=== PATIENT | male | born 1930 | race Caucasian/White ===

== ENCOUNTER 2017-02-06 21:34 | Emergency (ER) | payer MEDICARE | END 2017-02-06 22:42 | disposition home or self-care (01) | DX: S01.512A Laceration without foreign body of oral cavity, initial encounter (principal); X58.XXXA Exposure to other specified factors, initial encounter; K13.1 Cheek and lip biting; I10 Essential (primary) hypertension; I48.91 Unspecified atrial fibrillation; Z79.01 Long term (current) use of anticoagulants; Z79.82 Long term (current) use of aspirin; Z95.0 Presence of cardiac pacemaker ==

== ENCOUNTER 2017-12-15 08:00 | Outpatient (CLI) | payer MEDICARE ==
[2017-12-15 19:09] LABS: BASOPHILS % (AUTO) 0.9 %; EOSINOPHILS % (AUTO) 2.2 %; HGB - HEMOGLOBIN 13.5 g/dL (14.0-18.0); LYMPHOCYTES % (AUTO) 13.2 %; MEAN CORPUSCULAR HEMOGLOBIN 32.4 pg (27.0-31.0); MEAN CORPUSCULAR HGB CONC 32.6 g/dL (32.0-36.0); MEAN CORPUSCULAR VOLUME 99.5 fL (80.0-94.0); MEAN PLATELET VOLUME 9.4 fL (7.4-11.4); MONOCYTES % (AUTO) 8.5 %; NEUTROPHILS % (AUTO) 75.2 %; PLT - PLATELET COUNT 136 10^3/uL (130-450); RED BLOOD COUNT 4.18 10^6/uL (4.70-6.10); RED CELL DISTRIBUTION WIDTH 13.9 % (12.0-15.0); WHITE BLOOD COUNT 8.5 x10^3/uL (4.8-10.8)
[2017-12-15 19:23] LABS: ABNORMAL LYMPHS % (MANUAL) 0 %
[2017-12-15 20:09] LABS: BAND NEUTROPHILS % (MANUAL) 2 %; DIFFERENTIAL COMMENT MANUAL DIFFERENTIAL; LYMPHOCYTES # (MANUAL) 1.4 10^3/uL (1.5-3.5); LYMPHOCYTES % (MANUAL) 13 %; MONOCYTES # (MANUAL) 0.4 10^3/uL (0.0-1.0); NEUTROPHILS # (MANUAL) 6.7 10^3/uL (1.5-6.6); NEUTROPHILS % (MANUAL) 77 %; PLATELET ESTIMATE, MANUAL NORMAL (130-450,000) (NORMAL); PLATELET MORPHOLOGY NORMAL APPEARANCE (NORMAL); RBC MORPHOLOGY (MULTIPLE) NORMAL APPEARANCE (NORMAL)
== END 2017-12-15 08:01 | disposition home or self-care (01) ==
LOC: LAB.WCP 08:00
PROVIDERS: ATTEND Family Medicine
DX: M79.671 Pain in right foot (principal)
CPT/HCPCS: 36415; 84550; 85025

== ENCOUNTER 2018-07-20 11:15 | Outpatient (CLI) | payer MEDICARE | END 2018-07-20 11:16 | disposition home or self-care (01) | LOC: SC 11:15 | PROVIDERS: ATTEND Internal Medicine Pulmonary Disease | DX: G47.33 Obstructive sleep apnea (adult) (pediatric) (principal) | CPT/HCPCS: 99203; G0463; 99212 ==

== ENCOUNTER 2018-09-09 19:39 | Outpatient (CLI) | payer MEDICARE | END 2018-09-09 19:40 | disposition home or self-care (01) | LOC: SC 19:39 | PROVIDERS: ATTEND Internal Medicine Pulmonary Disease | DX: G47.33 Obstructive sleep apnea (adult) (pediatric) (principal) | CPT/HCPCS: 95810 ==

== ENCOUNTER 2018-10-05 14:06 | Outpatient (CLI) | payer MEDICARE | END 2018-10-05 14:07 | disposition home or self-care (01) | LOC: SC 14:06 | PROVIDERS: ATTEND Internal Medicine Pulmonary Disease | DX: G47.33 Obstructive sleep apnea (adult) (pediatric) (principal) | CPT/HCPCS: 99213; G0463; 99212 ==

== ENCOUNTER 2018-12-07 08:39 | Outpatient (CLI) | payer MEDICARE | END 2018-12-07 08:40 | disposition home or self-care (01) | LOC: SC 08:39 | PROVIDERS: ATTEND Nurse Practitioner Family | DX: G47.33 Obstructive sleep apnea (adult) (pediatric) (principal) | CPT/HCPCS: 99214; G0463; 99212 ==

== ENCOUNTER 2018-12-25 10:59 | Outpatient (CLI) | payer MEDICARE ==
--- NOTE | 2018-12-25 12:53 | XRAY Report ---
Reason: HEEL PX LEFT Procedure Date: 12/25/2018 Accession Number: [id number] / [id number] Procedure: WCP - Foot 3 View LT CPT Code: FULL RESULT: EXAM: LEFT FOOT RADIOGRAPHY EXAM DATE: 12/25/2018 11:31 AM. CLINICAL HISTORY: Heel pain, left. COMPARISON: None. TECHNIQUE: 3 views. FINDINGS: Bones: Normal. No fractures or bone lesions. Joints: Status post arthrodesis of the first metatarsophalangeal joint. Soft Tissues: Vascular calcifications. IMPRESSION: No abnormalities identified in the region of the heel. RADIA
== END 2018-12-25 11:00 | disposition home or self-care (01) ==
LOC: DI.WCP 10:59
PROVIDERS: ATTEND Family Medicine
DX: M79.672 Pain in left foot (principal)

== ENCOUNTER 2019-01-18 13:17 | Outpatient (CLI) | payer MEDICARE | END 2019-01-18 13:18 | disposition home or self-care (01) | LOC: SC 13:17 | PROVIDERS: ATTEND Nurse Practitioner Family | DX: G47.33 Obstructive sleep apnea (adult) (pediatric) (principal); R03.1 Nonspecific low blood-pressure reading | CPT/HCPCS: 99215; G0463; 99212 ==

== ENCOUNTER 2019-02-15 10:31 | Emergency (ER) | payer MEDICARE ==
[2019-02-15 13:00] LABS: BASOPHILS # (AUTO) 0.1 10^3/uL (0.0-0.1); BASOPHILS % (AUTO) 1.2 %; EOSINOPHILS # (AUTO) 0.1 10^3/uL (0.0-0.7); EOSINOPHILS % (AUTO) 1.1 %; HGB - HEMOGLOBIN 12.3 g/dL (14.0-18.0); LYMPHOCYTES # (AUTO) 0.9 10^3/uL (1.5-3.5); LYMPHOCYTES % (AUTO) 10.8 %; MEAN CORPUSCULAR HEMOGLOBIN 36.1 pg (27.0-31.0); MEAN CORPUSCULAR HGB CONC 35.1 g/dL (32.0-36.0); MEAN CORPUSCULAR VOLUME 102.6 fL (80.0-94.0); MEAN PLATELET VOLUME 8.3 fL (7.4-11.4); MONOCYTES # (AUTO) 0.6 10^3/uL (0.0-1.0); NEUTROPHILS # (AUTO) 6.5 10^3/uL (1.5-6.6); NEUTROPHILS % (AUTO) 79.9 %; PLT - PLATELET COUNT 157 10^3/uL (130-450); RED BLOOD COUNT 3.42 10^6/uL (4.70-6.10); RED CELL DISTRIBUTION WIDTH 13.4 % (12.0-15.0); WHITE BLOOD COUNT 8.2 x10^3/uL (4.8-10.8)
[2019-02-15 13:13] LABS: ALBUMIN 4.2 g/dL (3.2-5.5); ALBUMIN/GLOBULIN RATIO 1.7 (1.0-2.2); BILIRUBIN,TOTAL 1.2 mg/dL (0.2-1.0); CREATININE 2.7 mg/dL (0.6-1.2); TOTAL PROTEIN 6.7 g/dL (6.7-8.2)
--- NOTE | 2019-02-15 14:06 | ED Physician Documentation ---
PD HPI FOCAL NEURO - Stated complaint Stated Complaint: SEIZURE/ALOC - Chief complaint Chief Complaint: Neuro - History obtained from History obtained from: Patient, Family () - History of Present Illness Timing - onset: Today (He was walking into the bedroom this morning and then suddenly started shaking. It was both sides. He maintained postural tone and he leaned up against the door frame and did not fall down. There is no associated chest pain or trouble breathing. The said he had something like this may be a month ago that seemed milder at that time. Now he feels fine, there is no increase in shortness of breath or cough or urinary complaints. He denies headache.) Review of Systems Ten Systems: 10 systems reviewed and negative Constitutional: denies: Fever, Chills, Fatigue Cardiac: denies: Chest pain / pressure, Palpitations Respiratory: denies: Dyspnea, Cough GI: denies: Abdominal Pain, Nausea, Vomiting PD PAST MEDICAL HISTORY - Past Medical History Cardiovascular: Hypertension, High cholesterol, Atrial fibrillation HEENT: Glaucoma - Past Surgical History Past Surgical History: Yes Cardiovascular: Pacemaker - Present Medications Home Medications: Ambulatory Orders Medication Instructions Recorded Confirmed Atorvastatin Calcium [Lipitor] 80 mg PO QPM 02/06/17 02/06/17 Carvedilol [Coreg] 25 mg PO BID 02/06/17 02/06/17 Cetirizine [ZyrTEC] 10 mg PO DAILY PRN 02/06/17 02/06/17 Latanoprost 0.005% Ophth Drops 1 drops OPTH QPM 02/06/17 02/06/17 [Xalatan Ophth Drops] Losartan [Cozaar] 25 mg PO BID 02/06/17 02/06/17 Sildenafil Citrate [Viagra] 50 mg PO DAILY 02/06/17 02/06/17 Timolol Maleate [Timoptic] 5 ml OP BID 02/06/17 02/06/17 Metronidazole [Metrogel] 02/15/19 RX: Acyclovir 1 tab ORAL BID 02/15/19 02/15/19 RX: Amiodarone [Pacerone] 1 tab ORAL DAILY 02/15/19 02/15/19 RX: Cyclosporine [Restasis] 1 BID 02/15/19 RX: Levothyroxine [Synthroid] 1 tab DAILY 02/15/19 02/15/19 RX: Torsemide 02/15/19 RX: Warfarin Sodium 2 mg DAILY 02/15/19 02/15/19 - Allergies Allergies/Adverse Reactions: Allergies Allergy/AdvReac Type Severity Reaction Status Date / Time simvastatin [From Zocor] Allergy Cramps Verified 02/15/19 14:26 [id number] Reductase AdvReac Unknown Verified 02/15/19 10:37 Inhibitor - Social History Does the pt smoke?: No Smoking Status: Never smoker Does the pt drink ETOH?: Yes Does the pt have substance abuse?: No - Immunizations Immunizations are current?: Yes - POLST Patient has POLST: No PD ED PE NORMAL - Vitals Vital signs reviewed: Yes - General General: Alert and oriented X 3, No acute distress - HEENT HEENT: PERRL, EOMI - Neck Neck: Supple, no meningeal sign, No bony TTP - Cardiac Cardiac: RRR, No murmur - Respiratory Respiratory: No respiratory distress, Clear bilaterally - Abdomen Abdomen: Normal bowel sounds, Other (Mild focal tenderness in the right upper quadrant) - Back Back: No CVA TTP, No spinal TTP - Derm Derm: Normal color, Warm and dry - Neuro Neuro: Alert and oriented X 3, Normal speech - Psych Psych: Normal mood, Normal affect Results - Vitals Vitals: Vital Signs - 24 hr 02/15/19 02/15/19 02/15/19 10:33 13:10 16:01 Temperature 36.5 C 36.0 C L 35.9 C L Heart Rate 62 64 60 Respiratory 18 18 18 Rate Blood Pressure 141/77 H 160/73 H 138/75 H O2 Saturation 100 100 100 Oxygen O2 Source Room air - EKG (time done) 1057 Rate: Rate (enter#) (60) Rhythm: Paced Computer interpretation: Agree with computer - Labs Labs: Laboratory Tests 02/15/19 02/15/19 02/15/19 12:49 12:49 12:49 WBC 8.2 RBC 3.42 L Hgb 12.3 L Hct 35.1 L MCV 102.6 H MCH 36.1 H MCHC 35.1 RDW 13.4 Plt Count 157 MPV 8.3 Neut # (Auto) 6.5 Lymph # (Auto) 0.9 L [place] # (Auto) 0.6 Eos # (Auto) 0.1 Baso # (Auto) 0.1 Absolute Nucleated RBC 0.00 Nucleated RBC % 0.0 Sodium 139 Potassium 3.7 Chloride 104 Carbon Dioxide 24 Anion Gap 11.0 BUN 64 H Creatinine 2.7 H Estimated GFR (MDRD) 23 L Glucose 99 Calcium 9.0 Total Bilirubin 1.2 H AST 58 H ALT 71 H Alkaline Phosphatase 71 Troponin I < 0.04 Total Protein 6.7 Albumin 4.2 Globulin 2.5 Albumin/Globulin Ratio 1.7 Lipase 40 Urine Color Urine Clarity Urine pH Ur Specific [place] Urine Protein Urine Glucose (UA) Urine Ketones Urine Occult Blood Urine Nitrite Urine Bilirubin Urine Urobilinogen Ur Leukocyte Esterase Ur Microscopic Review Urine Culture Comments 02/15/19 14:40 WBC RBC Hgb Hct MCV MCH MCHC RDW Plt Count MPV Neut # (Auto) Lymph # (Auto) [place] # (Auto) Eos # (Auto) Baso # (Auto) Absolute Nucleated RBC Nucleated RBC % Sodium Potassium Chloride Carbon Dioxide Anion Gap BUN Creatinine Estimated GFR (MDRD) Glucose Calcium Total Bilirubin AST ALT Alkaline Phosphatase Troponin I Total Protein Albumin Globulin Albumin/Globulin Ratio Lipase Urine Color YELLOW Urine Clarity CLEAR Urine pH 6.0 Ur Specific [place] 1.010 Urine Protein NEGATIVE Urine Glucose (UA) NEGATIVE Urine Ketones NEGATIVE Urine Occult Blood NEGATIVE Urine Nitrite NEGATIVE Urine Bilirubin NEGATIVE Urine Urobilinogen 0.2 (NORMAL) Ur Leukocyte Esterase NEGATIVE Ur Microscopic Review NOT INDICATED Urine Culture Comments NOT INDICATED - Rads (name of study) 2v chest Radiology: EMP read contemporaneously (mild chf), See rad report CT Head Radiology: EMP read contemporaneously (White matter disease, no acute disease.) RUQ sono Radiology: EMP read contemporaneously (neg) PD MEDICAL DECISION MAKING - ED course ED course: This is an 88-year-old gentleman with an episode of shaking today. It was bilateral without the loss of consciousness or postural tone making seizure unlikely. Triage orders were done by the nurse and shows chronic renal insufficiency, but also shows some elevated bilirubin and liver enzymes. He has mild tenderness in the right upper quadrant. I wonder if smoldering cholecystitis might have given him Rigor as the cause of this episode. However imaging suggested against this and his chronic CHF might suggest a congested hepatic pattern. Otherwise it did not seem like anything acute was going on but watchful waiting and close monitoring was advised. Departure - Departure Disposition: 01 Home, Self Care Clinical Impression: Episode of shaking, Elevated liver enzymes, Renal failure Condition: Good Record reviewed to determine appropriate education?: Yes Comments: As discussed, the cause of your symptoms today is not immediate clear. There is no obvious evidence of an infection, your lab work shows only chronic issues such as the renal failure mild anemia and all of the imaging studies were without acute issues as well. Please return for new or worsening symptoms, follow-up with your doctor regardless, here she may want to recheck your liver enzymes which were mildly elevated. Discharge Date/Time: 02/15/19 16:32
--- NOTE | 2019-02-15 14:43 | CT Report ---
Reason: poss seizure Procedure Date: 02/15/2019 Accession Number: [id number] / [id number] Procedure: CT - HEAD WO CPT Code: FULL RESULT: EXAM: CT HEAD EXAM DATE: 02/15/2019 02:29 PM. CLINICAL HISTORY: Seizure activity. COMPARISON: HEAD W/WO 05/07/2016 4:16 PM. TECHNIQUE: Multiaxial CT images were obtained from the foramen magnum to the vertex. Reformats: Sagittal and coronal. IV contrast: None. In accordance with CT protocol optimization, one or more of the following dose reduction techniques were utilized for this exam: automated exposure control, adjustment of mA and/or KV based on patient size, or use of iterative reconstructive technique. FINDINGS: Parenchyma: Negative for acute hemorrhage. There is mild periventricular white matter hypodensity. No midline shift or mass-effect. Extraaxial Spaces: No subdural or epidural collections identified. Ventricles: Symmetric and normal in position. Sinuses and Orbits: Imaged paranasal sinuses, orbits, and mastoids show no significant abnormality. Bones: No evidence of fracture or calvarial defect. Other: None. IMPRESSION: 1. Negative for an acute or focal intracranial abnormality. 2. Mild nonfocal white matter hypodensity. Nonspecific but most commonly attributed to sequela of chronic microangiopathy. RADIA
[2019-02-15 14:50] LABS: BILIRUBIN,URINE NEGATIVE (NEGATIVE); GLUCOSE, URINE (UA) NEGATIVE (NEGATIVE); KETONES,URINE (UA) NEGATIVE (NEGATIVE); LEUKOCYTE ESTERASE, URINE NEGATIVE (NEGATIVE); NITRITE,URINE NEGATIVE (NEGATIVE); OCCULT BLOOD,URINE NEGATIVE (NEGATIVE); PROTEIN,URINE NEGATIVE (NEGATIVE); UROBILINOGEN,URINE 0.2 (NORMAL) E.U./dL (NORMAL)
[2019-02-15 14:52] LABS: CLARITY,URINE CLEAR (CLEAR)
--- NOTE | 2019-02-15 15:09 | XRAY Report ---
Reason: rigors Procedure Date: 02/15/2019 Accession Number: [id number] / [id number] Procedure: XR - Chest 2 View X-Ray CPT Code: 13502 FULL RESULT: EXAM: CHEST RADIOGRAPHY EXAM DATE: 02/15/2019 02:42 PM. CLINICAL HISTORY: Rigors. COMPARISON: None. TECHNIQUE: 2 views. FINDINGS: Lungs/Pleura: No focal opacities evident. No pleural effusion. No pneumothorax. Normal volumes. Borderline increased pulmonary vasculature. Mediastinum: Enlarged cardiac silhouette. Unremarkable mediastinal contour. Other: Left sided cardiac implant is in place with leads projecting over right atrium and right ventricular apex. IMPRESSION: Borderline CHF/fluid overload. No acute findings otherwise. RADIA
--- NOTE | 2019-02-15 15:18 | Ultrasound Report ---
Reason: RUQ TTP, rigors Procedure Date: 02/15/2019 Accession Number: [id number] / [id number] Procedure: US - Abdomen Limited CPT Code: FULL RESULT: EXAM: ABDOMEN ULTRASOUND LIMITED, RIGHT UPPER QUADRANT. EXAM DATE: 02/15/2019 03:11 PM. CLINICAL HISTORY: Right upper quadrant tender to palpation, rigors. COMPARISON: None. TECHNIQUE: Real-time scanning was performed with static images obtained. FINDINGS: Liver: Parenchyma appears echogenic and coarse which limits evaluation for underlying masses, no masses seen. Right lobe of the liver measures at least 12.9 cm. Main portal vein flow: Hepatopetal. Gallbladder: Normal. No stones, wall thickening, or sonographic Carolina's sign. Biliary System: CBD measures 3 mm. No intrahepatic or extrahepatic ductal dilatation. Other: Right kidney measures up to 9.2 cm and demonstrates no hydronephrosis. IMPRESSION: No evidence of cholecystitis. RADIA
[2019-02-15 16:02] VITALS: BP 138/75
== END 2019-02-15 16:32 | disposition home or self-care (01) ==
LOC: ED 10:31
DX: R25.1 Tremor, unspecified (principal); I13.0 Hypertensive heart and chronic kidney disease with heart failure and stage 1 through stage 4 chronic kidney disease, or unspecified chronic kidney disease; N18.9 Chronic kidney disease, unspecified; I50.9 Heart failure, unspecified; R10.811 Right upper quadrant abdominal tenderness; R74.8 Abnormal levels of other serum enzymes; R79.89 Other specified abnormal findings of blood chemistry; D64.9 Anemia, unspecified; I48.91 Unspecified atrial fibrillation; Z79.01 Long term (current) use of anticoagulants; Z95.0 Presence of cardiac pacemaker
CPT/HCPCS: 36415; 70450; 71046; 76705; 80053; 81001; 81003; 83690; 84484; 85025; 87086; 93005; 99283; 99284

== ENCOUNTER 2019-03-22 14:48 | Outpatient (CLI) | payer MEDICARE | END 2019-03-22 14:49 | disposition home or self-care (01) | LOC: SC 14:48 | PROVIDERS: ATTEND Nurse Practitioner Family | DX: G47.33 Obstructive sleep apnea (adult) (pediatric) (principal) | CPT/HCPCS: 99214; G0463; 99212 ==

== ENCOUNTER 2019-04-27 13:13 | Outpatient (CLI) | payer MEDICARE | END 2019-04-27 13:14 | disposition home or self-care (01) | LOC: SC 13:13 | PROVIDERS: ATTEND Nurse Practitioner Family | DX: G47.33 Obstructive sleep apnea (adult) (pediatric) (principal); I95.9 Hypotension, unspecified | CPT/HCPCS: 99215; G0463; 99212 ==

== ENCOUNTER 2019-05-12 09:52 | Outpatient (CLI) | payer MEDICARE ==
--- NOTE | 2019-05-12 15:57 | CONSULTATION NOTE ---
Palliative Care Consultation - Referral Referring Provider: Dr. Niya Harvey Time of Visit: [phone] Referral setting: [facility] [place] - Information Sources Records reviewed: Previous records reviewed History/Review of Systems obtained from: Patient, Family Exam limitations: No limitations - History of Present Illness Brief History of Present Illness: This is a 88-year-old gentleman presents with multiple comorbidities, who has CKD stage IV, with multifactor etiology. He has known chronic combined systolic and diastolic congestive heart failure, tachybradycardia syndrome, atrial fib on Coumadin therapy, and most recently struggled with hypotension and concern for near syncope/seizure visit to the emergency department on 02/15/2019. Patient is supported by multiple specialists, his care is complex in the context of mild cognitive issues, macular degeneration, and functional decline over the last several months. Patient's most problematic symptom, is actually intermittent dizziness and shortness of breath with increased activity. This is limited his ability to participate in activities that previously were important to him, as he was fairly active at baseline. He is well supported by his , who oversees his medical care, they have a supportive confucianism community, and are here today to establish with palliative care. Patient's last recorded labs are in January with ED visit, with BUN of 64, creatinine 2.7, and GFR of 23. They had met with palliative care up in [place], in the context of goals of care conversation patient has chosen not to pursue dialysis though at this point does not meet criteria. He has seen nephrology both at [facility], and you have dub. He has had some recent medication adjustments with decreased in his hypotension. Medical/Surgical History - Past Medical History Cardiovascular: reports: Congestive heart failure (combined systolic/diastolic), Hypertension, High cholesterol, Atrial fibrillation, Other (tachybrady syndrome) Respiratory: reports: Shortness of breath, Sleep apnea, CPAP use Neuro: Other (memory impairment) Endocrine/Autoimmune: reports: None : reports: Renal insuffiency HEENT: reports: Chronic vision loss, Glaucoma, Macular degeneration Psych: reports: None Musculoskeletal: reports: Osteoarthritis, Fatigue Derm: reports: Rosacea MRSA Hx?: No - Past Surgical History General: reports: Appendectomy Ortho: reports: Spine surgery, Other Cardiovascular: reports: Pacemaker, Other (ablation) HEENT: reports: Other (corneal transplant) Derm: reports: Skin cancer surgery - Substance History Use: Uses substance without health or social issues: Tobacco (previous hx), Alcohol (daily) Social History - Living Situation Living arrangement: At home Living Situation: With spouse/s.o. Support System: Patient has been for 40 years to his Mark. They have lived 20 years on [facility]. 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 He was an avid hiker, and finds limitations particularly around traveling disappointing, but they still travel short distances. They have a blended family, of 5 sons total. 2 lives in [place]. They feel well supported by their confucianism community, and go to [facility]. Family History - Family History Family History: Mother: , CVA/TIA, Father: , CVA/TIA, Brother: , CAD Medications/Allergies - Medications Home Medications: Ambulatory Orders Medication Instructions Recorded Confirmed Atorvastatin Calcium [Lipitor] 80 mg PO QPM 02/06/17 05/18/19 Carvedilol [Coreg] 12.5 mg PO BID 02/06/17 05/18/19 Cetirizine [ZyrTEC] 10 mg PO DAILY PRN 02/06/17 05/18/19 Losartan [Cozaar] 25 mg PO ACHS 02/06/17 05/18/19 Acyclovir 400 mg ORAL BID 02/15/19 05/18/19 Amiodarone [Pacerone] 200 mg ORAL DAILY 02/15/19 05/18/19 Cyclosporine [Restasis] 1 drops EACHEYE BID 02/15/19 05/18/19 Levothyroxine [Synthroid] 75 mcg PO DAILY 02/15/19 05/18/19 Metronidazole [Metrogel] 1 applic TOP DAILY PRN 02/15/19 05/18/19 Torsemide 20 mg PO .QOD 02/15/19 05/18/19 Warfarin Sodium 2 mg DAILY MDD managed PCP 02/15/19 05/18/19 Dorzolamide 2% Ophth Drops 1 drops EACHEYE BID 05/18/19 05/18/19 [Trusopt 2% Ophth Drops] Multivitamin [Multivitamins] 1 tab PO DAILY 05/18/19 05/18/19 Torsemide 10 mg PO .QOD 05/18/19 05/18/19 - Allergies Allergies/Adverse Reactions: Allergies Allergy/AdvReac Type Severity Reaction Status Date / Time simvastatin [From Zocor] Allergy Cramps Verified 02/15/19 14:26 Huhwhur-Jop-Imi Reductase AdvReac Unknown Verified 02/15/19 10:37 Inhibitor Review of Systems - Constitutional Constitutional: reports: Fatigue, Weight stable - Eyes Eyes: reports: Blurred vision, Vision loss - Ears, Nose & Throat Ears, Nose & Throat: reports: Hearing loss, Nasal congestion, Dry mouth - Cardiovascular Cardiovascular: reports: Irregular heart rate, Exertional dyspnea, Decr. exercise tolerance. denies: Edema - Respiratory Respiratory: reports: SOB with exertion. denies: Cough, SOB at rest - Gastrointestinal Gastrointestinal: reports: Constipation (intermittent), Good appetite. denies: Nausea, Reflux/heartburn - Genitourinary Genitourinary: reports: Frequency - Musculoskeletal Musculoskeletal: reports: Muscle aches, Stiffness, Limited range of motion - Neurological Neurological: reports: General weakness, Memory problems, Abnormal gait - Psychiatric Psychiatric: denies: Depression, Anxiety - Hematologic/Lymphatic Hematologic/Lymphatic: reports: Anemia, Bruising, Bleeding tendencies. denies: Recurrent infections - All Other Systems All Other Systems: reports: Reviewed and negative Physical Exam - Vital Signs Pulse Rate: 60 Respiratory Rate: 18 O2 Saturation: 100 (ra @ rest) Blood Pressure: 126/74 - Physical Exam General Appearance: positive: No acute distress, Alert Eyes Bilateral: positive: Conjunctivae nml ENT: positive: No signs of dehydration Neck: positive: No JVD, Trachea midline Cardiovascular: positive: Regular rate & rhythm Respiratory: positive: Diminished in bases. negative: Wheezes, Rales, Rhonchi Abdomen: positive: Non-tender, Soft, Nml bowel sounds Skin: positive: Pallor, Dryness, Bruising Extremities: positive: No pedal edema Neurologic/Psychiatric: positive: Oriented x3, Mood/affect nml, Weakness, Flat affect, Other (defers often to for answers) Palliative Care - POLST Patient has POLST: Yes POLST Status: DNR, Selective Treatment (completed with Dr. Reid 12/01/2013 and still valid) Pain: No pain Tiredness/Fatigue: Mild (1-3) Drowsiness/Sedation: None Nausea: None Depression: None Anxiety: None Dyspnea: Moderate (4-6) Anorexia: None Sleep: Sleeps well (CPAP) Constipation: No Feelings of wellbeing/Perceived Quality of Life: Good, Acceptable, Worsening Performance Status: Patient's functional status has declined fairly steadily over the last 6 weeks, mostly impacted by his dyspnea and intermittent dizziness. With medication adjustments dizziness improved, but still needing to pace himself. Patient needing frequent rest periods only able ambulate 10 to 20 feet without pacing self. Patient has not had any falls, but gait is unsteady. - Palliative Care Discussion: Patient presents is somewhat pragmatic, but also appears resigned to his current situation. Patient denies worries, or concerns related to the seriousness of his illness. Review of goals, include focus on quality of life, hoping to simplify medical regimen, receives most of specialty care in [place]. Did discuss in the context of the future, and moving care closer to home. Recognizes as chronic conditions, less acute interventions needed and may be able to scale back in the future. Patient has not had any recent acute hospitalizations. would like palliative care, available to help with coordination and anticipatory guidance as patient continues to decline. Results - Lab Results Lab results reviewed: Yes Lab and Imaging Results: Will coordinate with PCP for updated labs Impression and Recommendations - Palliative Care Impression: This is a viola 88-year-old gentleman with multiple comorbidities, with most problematic CKD stage IV, Chronic combined systolic and diastolic congestive heart failure, tachybradycardia syndrome, and persistent atrial fib. Patient symptom burden is moderate, most problematic is intermittent and ongoing dizziness and limiting dyspnea. Patient has had functional decline most acutely over the last 6 weeks, and mild cognitive changes over the last year. Palliative care to provide support and anticipatory guidance. Recommendations/Counseling Done: 1. CKD stage IV. Patient at this point time is not expected to pursue dialysis, the most recent labs were in January. Will coordinate with PCP, with upcoming appointment and draw labs to get baseline where patient currently is. Suspect current fatigue, and activity intolerance related to underlying disease process. Counseling provided regarding the chronic and progressive nature, will continue to monitor. 2. Dyspnea. This is most likely multifactorial in origin, including anemia, underlying heart failure, tachybradycardia syndrome. Patient is finding this most impactful and limiting on his current quality of life. Patient does not present with hypoxia, at this point in time counseling provided regarding pacing activities, balancing deconditioning risk, encouraged progressive ambulation to tolerance. Offered physical therapy, at this point declined. 3. Advanced care planning. Patient does have POLST in place, DPKobi moreno is his Hugo [phone]. Patient has experienced decline in quality of life, has multiple comorbidities impacting prognosis. Patient high risk for sequela from a fall, but has had no acute hospitalizations or recurrent infections. Counseling provided in review of goals of care, role of palliative care, and psychosocial support given in the context of his ongoing challenges and decline.Today's visit was to establish rapport, patient's baseline and goals, plan to revisit in 2 months. Patient on Tee Index, looks at community dwelling adults 65 years and older at outcome of all cause 1 year mortality. Patient scores an 8 which puts him at 36.5%. Risk calculators cannot predict the future for any one individual, but given estimate of how many people with similar risk factors will live and , but cannot identify who will live and who will . Time Spent: 75 minutes with greater than 50% of this done in counseling regarding continuum of care, goals of care, establishing rapport, plan to follow-up on labs and coordinate with PCP, update given to Dr. Harvey. We will plan to meet in 2 months.
== END 2019-05-12 09:53 | disposition home or self-care (01) ==
LOC: PC 09:52
PROVIDERS: ATTEND Nurse Practitioner Adult Health
DX: Z51.5 Encounter for palliative care (principal); I13.0 Hypertensive heart and chronic kidney disease with heart failure and stage 1 through stage 4 chronic kidney disease, or unspecified chronic kidney disease; N18.4 Chronic kidney disease, stage 4 (severe); I50.42 Chronic combined systolic (congestive) and diastolic (congestive) heart failure; R06.00 Dyspnea, unspecified; D64.9 Anemia, unspecified; I49.5 Sick sinus syndrome; I48.1 Persistent atrial fibrillation; R42 Dizziness and giddiness; R26.81 Unsteadiness on feet; R53.83 Other fatigue; G31.84 Mild cognitive impairment of uncertain or unknown etiology; G47.30 Sleep apnea, unspecified; E78.00 Pure hypercholesterolemia, unspecified; H35.30 Unspecified macular degeneration; H40.9 Unspecified glaucoma; H54.7 Unspecified visual loss; M19.90 Unspecified osteoarthritis, unspecified site; R35.0 Frequency of micturition; Z66 Do not resuscitate; Z79.01 Long term (current) use of anticoagulants; Z91.81 History of falling
CPT/HCPCS: 99205

== ENCOUNTER 2019-05-17 08:00 | Outpatient (CLI) | payer MEDICARE ==
[2019-05-17 11:50] LABS: BASOPHILS % (AUTO) 0.4 %; EOSINOPHILS # (AUTO) 0.1 10^3/uL (0.0-0.7); EOSINOPHILS % (AUTO) 1.7 %; HGB - HEMOGLOBIN 12.2 g/dL (14.0-18.0); LYMPHOCYTES % (AUTO) 13.1 %; MEAN CORPUSCULAR HEMOGLOBIN 34.7 pg (27.0-31.0); MEAN CORPUSCULAR HGB CONC 32.4 g/dL (32.0-36.0); MEAN CORPUSCULAR VOLUME 107.1 fL (80.0-94.0); MONOCYTES # (AUTO) 0.7 10^3/uL (0.0-1.0); MONOCYTES % (AUTO) 8.9 %; NEUTROPHILS # (AUTO) 5.8 10^3/uL (1.5-6.6); NEUTROPHILS % (AUTO) 75.6 %; PLT - PLATELET COUNT 147 10^3/uL (130-450); RED BLOOD COUNT 3.52 10^6/uL (4.70-6.10); RED CELL DISTRIBUTION WIDTH 13.5 % (12.0-15.0); WHITE BLOOD COUNT 7.7 x10^3/uL (4.8-10.8)
[2019-05-17 12:12] LABS: ALBUMIN 4.3 g/dL (3.2-5.5); ALBUMIN/GLOBULIN RATIO 1.7 (1.0-2.2); BILIRUBIN,TOTAL 1.2 mg/dL (0.2-1.0); CALCIUM 9.1 mg/dL (8.5-10.3); CREATININE 2.7 mg/dL (0.6-1.2); TOTAL PROTEIN 6.9 g/dL (6.7-8.2)
== END 2019-05-17 23:59 | disposition home or self-care (01) ==
LOC: LAB 08:00
PROVIDERS: ATTEND Nurse Practitioner Adult Health
DX: Z51.81 Encounter for therapeutic drug level monitoring (principal); Z79.899 Other long term (current) drug therapy
CPT/HCPCS: 36415; 80053; 85025

== ENCOUNTER 2019-05-21 14:21 | Outpatient (CLI) | payer MEDICARE ==
[2019-05-21 19:28] LABS: CHOL/HDL RATIO 3.5 (<5.0); CHOLESTEROL 155 mg/dL; HDL CHOLESTEROL 44 mg/dL; LDL CHOLESTEROL,CALCULATED 90 mg/dL; VLDL CHOLESTEROL 21 mg/dL
[2019-05-21 20:16] LABS: FREE T4 (FREE THYROXINE) 1.13 ng/dL (0.58-1.64)
[2019-05-22 12:03] LABS: HEPATITIS B SURFACE ANTIGEN NON-REACTIVE (NON-REACTIVE); HEPATITIS C ANTIBODY NON-REACTIVE (NON-REACTIVE)
== END 2019-05-21 14:22 | disposition home or self-care (01) ==
LOC: LAB.WCP 14:21
PROVIDERS: ATTEND Family Medicine
DX: E78.5 Hyperlipidemia, unspecified (principal); R74.8 Abnormal levels of other serum enzymes; E03.9 Hypothyroidism, unspecified
CPT/HCPCS: 36415; 80061; 83721; 84439; 84443; 86317; 86704; 86709; 86803; 87340

== ENCOUNTER 2019-06-16 13:16 | Outpatient (CLI) | payer MEDICARE | END 2019-06-16 13:17 | disposition home or self-care (01) | LOC: SC 13:16 | PROVIDERS: ATTEND Nurse Practitioner Family | DX: G47.33 Obstructive sleep apnea (adult) (pediatric) (principal) | CPT/HCPCS: 99215; G0463; 99212 ==

== ENCOUNTER 2019-07-14 10:06 | Outpatient (CLI) | payer MEDICARE ==
--- NOTE | 2019-07-14 11:28 | CONSULTATION NOTE ---
Palliative Care Follow Up - Referral Referring Provider: Dr. Niya Harvey transitioning to Riya MCCLELLAND Time of Visit: 10:05-10:50 am Referral setting: [facility] [place] Referral Reason: CKD Stage IV/CHF/Weakness/Dyspnea - Information Sources Records reviewed: Previous records reviewed History/Review of Systems obtained from: Patient, Family ( Anneliese present for visit) Exam limitations: Clinical condition (patient with mild cognitive deficits/[place]) - History of Present Illness Update Brief HPI Update: This is a 88-year-old gentleman who presents with multiple comorbidities, who has CKD stage IV with most recent labs on 05/21 showing BUN of 50, creatinine 2.7, and GFR of 23. He also has known chronic combined systolic and diastolic heart failure, with multifactorial etiology is due for echo and follow-up with telecom network manager next month. He also has known tachybradycardia syndrome, atrial fib on Coumadin therapy, macular degeneration, and hard of hearing. He actually is doing much better than our last visit, he is able to ambulate daily 1 to 1.2 miles, using his trekking poles for stabilization, with only pacing himself with rest periods his balance is improved, though continues to be at risk for falls. His hypotension/dizziness is improved with his improved fluid intake of 6 to 7 glasses of fluid daily. At this point in time they have made plans for several family vacations, and patient is pleased with this outcome. Patient does have multiple specialists, his care is complex in the context of his mild cognitive issues, his is a good advocate and tracks his medical care. His primary care provider is moving, he is to establish care with [facility] at the end of this week. His only complaints are some allergy symptoms with nasal congestion, has not used his Zytrec, some itchy eyes, and sneezing. He also has had some increased trouble with his CPAP mask he does have severe COREY. He is working with the sleep center on this. Patient appears bright, easily to engage, he is hard of hearing and often does not speak up if he is unable to understand or hear me with his decrease in he aring, worsening eyesight he has not been able to read, continues to lose things that add to his quality of life. He does like to do crossword puzzles, and is often quite sedentary. [facility], and currently do not have any social stressors as far as meeting care needs. is quite proactive, does want to continue with palliative care support, recognizing patient is fragile. We will continue to follow for symptom management and coordination of care. Social History - Living Situation Living arrangement: At home Living Situation: With spouse/s.o. Support System: Patient lives with his Anneliese, they have been 40 years. They have lived [place] years on [facility]. 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 He was an avid hiker, and has found some nancy in being able to at least walk short distances. They have a blended family of 5 sons total, he belongs to the [facility] and [facility] Medications/Allergies - Medications Home Medications: Ambulatory Orders Medication Instructions Recorded Confirmed Atorvastatin Calcium [Lipitor] 80 mg PO QPM 02/06/17 07/14/19 Carvedilol [Coreg] 12.5 mg PO BID 02/06/17 07/14/19 Cetirizine [ZyrTEC] 10 mg PO DAILY PRN 02/06/17 07/14/19 Losartan [Cozaar] 25 mg PO ACHS 02/06/17 07/14/19 Acyclovir 400 mg ORAL BID 02/15/19 07/14/19 Amiodarone [Pacerone] 200 mg ORAL DAILY 02/15/19 07/14/19 Cyclosporine [Restasis] 1 drops EACHEYE BID 02/15/19 07/14/19 Metronidazole [Metrogel] 1 applic TOP DAILY PRN 02/15/19 07/14/19 Torsemide 20 mg PO .QOD 02/15/19 07/14/19 Warfarin Sodium 2 mg DAILY MDD managed PCP 02/15/19 07/14/19 Dorzolamide 2% Ophth Drops 1 drops EACHEYE BID 05/18/19 07/14/19 [Trusopt 2% Ophth Drops] Multivitamin [Multivitamins] 1 tab PO DAILY 05/18/19 07/14/19 Torsemide 10 mg PO .QOD 05/18/19 07/14/19 Cyanocobalamin (Vitamin B-12) 1,000 mg PO DAILY 07/14/19 07/14/19 [Vitamin B-12] Folic Acid 1 mg PO DAILY 07/14/19 07/14/19 Levothyroxine [Synthroid] 100 mcg PO DAILY 07/14/19 07/14/19 - Allergies Allergies/Adverse Reactions: Allergies Allergy/AdvReac Type Severity Reaction Status Date / Time simvastatin [From Zocor] Allergy Cramps Verified 02/15/19 14:26 Yidjfde-Igy-Rsy Reductase AdvReac Unknown Verified 02/15/19 10:37 Inhibitor Review of Systems - Constitutional Constitutional: reports: Fatigue (improved), Weight stable. denies: Fever, Chi lls - Eyes Eyes: reports: Vision loss (worsening; scheduling cornea specialist soon) - Ears, Nose & Throat Ears, Nose & Throat: reports: Hearing loss, Hearing aids (discussion needs adjusting not adequate; not in today), Nasal congestion - Cardiovascular Cardiovascular: reports: Irregular heart rate, Exertional dyspnea. denies: Chest pain, Edema - Respiratory Respiratory: reports: SOB with exertion, Other (CPAP getting adjusted; interfering with sleep quality). denies: Cough, SOB at rest (improved) - Gastrointestinal Gastrointestinal: reports: Good appetite. denies: Constipation (often on loose side), Nausea - Genitourinary Genitourinary: reports: Frequency, Urgency - Musculoskeletal Musculoskeletal: reports: Stiffness, Other (balance issues but improved; using treking poles with good response) - Integumentary Integumentary: reports: Lesions (followed by dermatology), Dryness - Neurological Neurological: reports: Dizziness (much improved; taking adequate fluids 6-8 glasses), Memory problems, Abnormal gait. denies: Numbness - Psychiatric Psychiatric: reports: Depression (mild). denies: Anxiety - Endocrine Endocrine: reports: Hypothyroidism (recent adjustment in medication) - Hematologic/Lymphatic Hematologic/Lymphatic: reports: Anemia (05/05 12.2). denies: Recurrent infections - All Other Systems All Other Systems: reports: Reviewed and negative Physical Exam - Vital Signs Pulse Rate: 68 (regular and sitting; standing 69) Respiratory Rate: 18 Blood Pressure: 122/77 (sitting; 122/74 standing) - Physical Exam General Appearance: positive: No acute distress, Alert Eyes Bilateral: positive: Other (right eye slightly reddened and watery with more swelling than left) ENT: positive: No signs of dehydration Neck: positive: No JVD, Trachea midline Cardiovascular: positive: Regular rate & rhythm Respiratory: positive: No respiratory distress, Breath sounds nml. negative: Wheezes, Rales, Rhonchi Abdomen: positive: Non-tender, Nml bowel sounds, Other (rounded but soft) Skin: positive: Dryness Extremities: positive: No pedal edema Neurologic/Psychiatric: positive: Oriented x3, Mood/affect nml, Flat affect Palliative Care - POLST Patient has POLST: Yes POLST Status: DNR, Selective Treatment Pain: No pain Tiredness/Fatigue: Moderate (4-6) Nausea: None Depression: Mild (1-3) Anxiety: Mild (1-3) Dyspnea: Moderate (4-6) Anorexia: None Sleep: Variable sleep pattern Constipation: No Feelings of wellbeing/Perceived Quality of Life: Good, Acceptable, Improved Performance Status: Patient's dizziness has improved his balance as far as being able to ambulate short distances patient is independent in his ADLs, does supervise his care. He is more sedentary as a result of his balance and dyspnea issues. I would put him at a PPS of 80% - Palliative Care Discussion: Patient denies any worries or concerns, unclear how much insight he has to the seriousness of his illness, but is feeling like his quality of life has improved. Discussion ensued regarding quality of life issues, things that he has loss plus things that we might be able to support, particularly in the co ntext of worsening eyesight and hearing. Patient continues with multiple specialists, hopeful to scale back as these chronic conditions stabilize, no recent hospitalizations or ED visits. They feel currently they do are doing okay, we did discuss in the context of palliative care, they do need to decide whether to follow-up with [facility] team are move their care to [facility]. Did offered to follow-up and communicate with the team, is going to let them know she will be following with [facility]. Results - Lab Results Lab results reviewed: Yes Impression and Recommendations - Palliative Care Impression: This is a viola 88-year-old gentleman with multiple comorbidities, with most problematic, CKD stage IV. Patient has improved as far as his balance, hypotension/dizziness, and dyspnea with increased activity, ambulation, and fluid intake. Patient's functional decline has been most acute over the last several months, but improved with his progressive ambulation program. Palliative care to continue provide support and anticipatory guidance, and coordination of care as needed. Recommendations/Counseling Done: 1. 1 CKD stage IV. Patient at this point in time is not expected to pursue dialysis, his labs from April were acceptable at this point. He is doing better with fluid intake, and less symptomatic. He does continue with some fatigue, and activity intolerance most likely related to his underlying disease process. 2. Dyspnea. This is most likely multifactorial in origin, including anemia, underlying heart failure, tachybradycardia syndrome and deconditioning. Patient's dyspnea has improved with his improved fluid status and progressive ambulation. is been quite diligent in getting him out daily, he is using his trekking poles for balance, and is feeling quite pleased with his progress. 3. Generalized weakness. Patient's balance is improved, he is participating in regular activity. He still is quite sedentary. We did discuss in the context of things that might be of support, including possibly a fit bit, up more frequently during the day he does sit for long periods of time, has set goals regarding vacations that patient needs to be ambulatory and able to participate. Patient is found this very motivating. 4. COREY. Patient is working with sleep center in the context of having more difficulty with her mask. It is in patient's up at night to urinate, did suggest if continues problematic may consider [facility] urinal at bedside so does not have to disconnect. 5. Mild cognitive deficits. In the context of his hearing and macular degene ration, many things that are supportive for him i.e. reading, music, is unable to enjoy TV. Counseling provided regarding possible use of headphones for music, books on tape if able to follow, and recommended follow-up with clerical adviser to have hearing aids adjusted. 6. Allergic rhinitis. Patient does demonstrate symptoms of allergies, [place] with her walking. Counseling provided to trial psych check on a regular basis for 1 week and see if improves, if not discontinue if does continue on a daily basis. 7. Advanced care planning. Patient does have a POLST in place, his DPO A is his Nov [phone]. Patient has experienced decline in his quality of life, has multiple comorbidities impacting his prognosis. Patient is at high risk for sequela from a fall, but has had no acute hospitalizations or recurrent infections. Reviewed role of palliative care, other team members of social work and pencil maker, at this point in time does not feel needs extended support. Will continue to focus on patient and family goals. Time Spent: 45 minutes with greater than 50% of this done in counseling regarding goals of care, symptom management, and anticipatory guidance. Patient is due in July to see cardiology and nephrology as well as receive an echo. Patient to establish with new primary care provider. Will see in 6 to 8 weeks for continued support through palliative care.
== END 2019-07-14 10:07 | disposition home or self-care (01) ==
LOC: PC 10:06
PROVIDERS: ATTEND Nurse Practitioner Adult Health
DX: Z51.5 Encounter for palliative care (principal); R53.81 Other malaise; N18.4 Chronic kidney disease, stage 4 (severe); R06.00 Dyspnea, unspecified; R53.1 Weakness; H91.90 Unspecified hearing loss, unspecified ear; G31.84 Mild cognitive impairment of uncertain or unknown etiology; D64.9 Anemia, unspecified; G47.33 Obstructive sleep apnea (adult) (pediatric); I50.42 Chronic combined systolic (congestive) and diastolic (congestive) heart failure; I49.5 Sick sinus syndrome; I48.91 Unspecified atrial fibrillation; Z79.01 Long term (current) use of anticoagulants; Z79.899 Other long term (current) drug therapy; Z66 Do not resuscitate
CPT/HCPCS: 99215

== ENCOUNTER 2019-08-05 13:16 | Outpatient (CLI) | payer MEDICARE ==
[2019-08-05 14:22] VITALS: BP 112/60
--- NOTE | 2019-08-05 14:22 | SLEEP CARE CONSULTATION ---
Information from patient questionnaire entered by Lashonda Kaye. I have reviewed and concur with the information entered by Lashonda Kaye. This document represents the service I personally performed and the decisions made by me, Ileana De La Rosa, RN, MSN, SERVICES PROGRAM MANAGER. History of Present Illness Previous diagnosis: Very Severe, Obstructive Sleep Apnea-Hypopnea Syndrome AHI: 70.3 Reason for CPAP/BiPAP follow up: other (6 week) Equipment type: CPAP Equipment obtained from: [facility] Mask style: Full face ([place]) Mask brand: Respironics Backup mask available: Yes Last cushion change: 1month HPI additional information: Mask refitting as marked at last visit has reduced mask leaks overall. The pressure adjustment had to be changed from [id number] to just [id number] as it was increasing AHI. Since then the patient and spouse have noted improved residual AHI sometimes as low as 5. CPAP Compliance Data - Data Reviewed with Patient Average duration of nightly device use: 9.2 Compliance rate %: 100 Current pressure setting (cmH2O): 16 -18 until past 2 weeks Humidity settin Heated hose settin Average residual AHI: 12.4 (AHI 9.6 last 2 weeks with [id number] pressure) Central apnea: 6.3 Obstructive apnea: 1.9 Hypopnea: 4.2 Average large leak: 57 mins 16 secs Subjective Patient concerns: reports: air blowing in eyes (occasionally much less with adj ustment and lower pressure). denies: aerophagia, mask discomfort, mask leak noise, condensation in mask/hose, nasal congestion, dry mouth, nose, throat, epistaxis Observed to snore while using device: No Current pressure setting perceived as: comfortable On therapy, patient: reports: sleeping better, awakening more refreshed, more rested overall. denies: drowsiness while driving (does not drive) Initial Holman Sleepiness Scale score: 4 Current Holman Sleepiness Scale score: 3 Allergies and Home Medications Known drug allergies: Yes Home medication list reviewed: Yes Allergy and home medication list: Medication Name (generic/name brand) Strength & Dosage Atorvastatin Calcium 80mg tab one daily Metrogel 1% External Gel Apply daily to facial lesions Losartan Potassium 25mg tab one daily Coreg (Carvedilol) 12.5 mg tab twice daily Amiodarone HCL 200mg tab one daily Levothyroxine Sodium 100mcg one daily Acyclovir 400mg tab one twice daily Cyclosporin Ophthalmic 0.1% Solution One drop twice daily Torsemide 10mg tab EOD, 20mg EOD alternating Warfarin 2mg tab as directed B1 daily B12 daily Perrigo Saline Nasal [place] Use nightly Dorzolamide Eye Solution 10ml One drop both eyes twice daily Allergy List Lonnie inhibitors Calcium channel blockers Zocor Keflex Pollen Smoke Review of Systems Review of systems same as previous: Yes (Echo looked good, recheck in one year) Physical Exam Blood Pressure: 112/60 Cuff size: long Heart Rate: 60 O2 Saturation: 98 Height: 5 ft 4.5 in Weight (kg): 203 lb 9.6 oz Body Mass Index: 34.4 BMI Classification: Class 1 Impression and Plan 1. Obstructive Sleep Apnea-Hypopnea Syndrome, very severe, with good treatment compliance and better apnea control. On CPAP therapy, the patient has better sleep quality and is more rested overall. The residual AHI is better with better mask fit leak control and lower pressure. I will lower the pressure slightly more to [id number] to see if reduces some of the central apneas. He is to contact me if the AHI increases rather than decrease as expected. So far this is the best residual range obtained. I again discussed completed a manual titration study to find best pressure range but patient and spouse declined. He is advised to update mask to maintain mask seal and comfort. Supply replacement list given and questions answered. Extra time taken to download compliance to show newer pressure range effect. Patient's apnea severity and rationale for treatment to reduce apnea, improve sleep quality and reduce cardiovascular and cerebrovascular events was reviewed. I also reviewed the benefit of consistent device use of CPAP for hypertension, cardiac disease. * Change CPAP pressure to 15 cmH2O * Change cushion regularly * Notify me if snoring with mask or feeling that the pressure is too much or too little * Attempt to lose weight * Return for follow up in 2-3 months , or sooner if concerns arise I spent 100% of this 35 minute visit face to face with the patient with greater than 50% of this was spent time counseling the patient and coordination of care.
== END 2019-08-05 13:17 | disposition home or self-care (01) ==
LOC: SC 13:16
PROVIDERS: ATTEND Nurse Practitioner Family
DX: G47.33 Obstructive sleep apnea (adult) (pediatric) (principal)
CPT/HCPCS: 99214; G0463; 99212

== ENCOUNTER 2019-09-01 09:59 | Outpatient (CLI) | payer MEDICARE ==
--- NOTE | 2019-09-01 14:31 | CONSULTATION NOTE ---
Palliative Care Follow Up - Referral Referring Provider: Riya Glover PA-C Time of Visit: 09-03 Referral setting: [facility] [place] Referral Reason: MCI/CKD IV - Information Sources Records reviewed: Previous records reviewed History/Review of Systems obtained from: Patient, Family ( Anneliese) Exam limitations: Clinical condition (STM issues) - History of Present Illness Update Brief HPI Update: This is a viola 89-year-old gentleman who presents with multiple comorbidities, who is actually doing fairly well given his underlying diagnoses. 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 Patient has some fatigue, no pruritus, no lower extremity edema, and is doing fairly well given his advanced age. He is able to ambulate long distances up to a mile, these are with a slow pace and frequent rest periods he is still attending to his ADLs, he perceives his quality of life is good, and has had no acute hospitalizations. He also has known tachybradycardia syndrome, atrial fib on anticoagulation, macular degeneration, and is hard of hearing. He recently saw the nude model for his chronic combined systolic and diastolic heart failure, attributed and nonischemic cardiomyopathy, and has known NYHA class III symptoms, with his most recent echo on showing left ventricular ejection fraction of 50 to 55% with hypokinesia of the apical segment. And compared to previous echoes no significant changes. Patient seen palliative care given the goals of care are to focus on quality of life issues, patient does have underlying mild dementia, but is still functional. He is able to attend his own ADLs, he has some short-term memory issues, he has no neuropsychiatric behaviors, and is well supported by his . There had been some consideration of further Neurocognitive testing with new PCP, but we discussed with weighing benefits of burdens of what would do with this information, agreed most likely not interested in medication, and patient would be distressed with the testing, will continue as is. Patient also is having increased trouble with his CPAP machine, patient's perception of repeating a sleep study is overwhelming, again in the context of his quality of life issues, would like not to move forward with this. They are working with the sleep center to adjust his settings as not to add to his distress. Patient presents today with good eye contact, attempting to engage and answer palliative care HEEL LAYER questions, he does often defer to his . He denies depression or anxiety, his most distressing symptom is his shortness of breath. This is more pronounced with activity particularly sudden change in elevation or speed, denies any chest pain, his dizziness is better with better fluid intake. Patient does perceive himself is somewhat "bored". As he has been fairly active all his life. He was able though to relay things that brought him nancy, including reading ministries, and they are planning for an upcoming vacation to celebrate their anniversary. They do have a supportive community, and are involved in their [place] community as well. Social History - Living Situation Living arrangement: At home Living Situation: With spouse/s.o. Support System: is very attentive, she does try to direct patient's healthcare in the context of a palliative approach. Weighing benefits and burdens is moving forward, she is quite concerned regarding his worsening kidney function, but this point in time still find his quality of life acceptable. 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 He has been to his for 41 years, they have a blended family of 5 sons total, he continues to attend [employer]. Medications/Allergies - Medications Home Medications: Ambulatory Orders Medication Instructions Recorded Confirmed Atorvastatin Calcium [Lipitor] 80 mg PO QPM 02/06/17 09/01/19 Carvedilol [Coreg] 12.5 mg PO BID 02/06/17 09/01/19 Cetirizine [ZyrTEC] 10 mg PO DAILY PRN 02/06/17 09/01/19 Losartan [Cozaar] 25 mg PO ACHS 02/06/17 09/01/19 Acyclovir 400 mg ORAL BID 02/15/19 09/01/19 Amiodarone [Pacerone] 200 mg ORAL DAILY 02/15/19 09/01/19 Cyclosporine [Restasis] 1 drops EACHEYE BID 02/15/19 09/01/19 Metronidazole [Metrogel] 1 applic TOP DAILY PRN 02/15/19 09/01/19 Torsemide 20 mg PO .QOD 02/15/19 09/01/19 Warfarin Sodium 2 mg DAILY MDD managed PCP 02/15/19 09/01/19 Dorzolamide 2% Ophth Drops 1 drops EACHEYE BID 05/18/19 09/01/19 [Trusopt 2% Ophth Drops] Multivitamin [Multivitamins] 1 tab PO DAILY 05/18/19 09/01/19 Torsemide 10 mg PO .QOD 05/18/19 09/01/19 Cyanocobalamin (Vitamin B-12) 1,000 mg PO DAILY 07/14/19 09/01/19 [Vitamin B-12] Folic Acid 1 mg PO DAILY 07/14/19 09/01/19 Levothyroxine [Synthroid] 100 mcg PO DAILY 07/14/19 09/01/19 - Allergies Allergies/Adverse Reactions: Allergies Allergy/AdvReac Type Severity Reaction Status Date / Time simvastatin [From Zocor] Allergy Cramps Verified 02/15/19 14:26 Ufuctxm-Mrc-Rum Reductase AdvReac Unknown Verified 02/15/19 10:37 Inhibitor Review of Systems - Constitutional Constitutional: reports: Fatigue, Weight stable (208). denies: Fever, Chills - Eyes Eyes: reports: Vision loss - Ears, Nose & Throat Ears, Nose & Throat: reports: Hearing loss, Hearing aids (doesn't always wear;) - Cardiovascular Cardiovascular: reports: Decr. exercise tolerance - Respiratory Respiratory: reports: SOB with exertion - Gastrointestinal Gastrointestinal: reports: Good appetite. denies: Abdominal pain, Constipation, Reflux/heartburn - Genitourinary Genitourinary: reports: Frequency - Musculoskeletal Musculoskeletal: reports: Stiffness, Muscle weakness - Integumentary Integumentary: reports: Dryness - Neurological Neurological: reports: Memory problems, Abnormal gait (mild balance problems) - Psychiatric Psychiatric: denies: Depression, Anxiety, Behavior disturbances - Endocrine Endocrine: reports: Hypothyroidism - Hematologic/Lymphatic Hematologic/Lymphatic: denies: Recurrent infections - All Other Systems All Other Systems: reports: Reviewed and negative Physical Exam - Vital Signs Pulse Rate: 60 Respiratory Rate: 18 O2 Saturation: 100 (ra @ rest) Blood Pressure: 133/77 - Physical Exam General Appearance: positive: No acute distress, Alert Eyes Bilateral: positive: Other (mild redness) ENT: positive: No signs of dehydration Neck: positive: No JVD, Trachea midline Cardiovascular: positive: Regular rate & rhythm Respiratory: positive: No respiratory distress, Breath sounds nml, Diminished in bases Abdomen: positive: Non-tender, Soft, Nml bowel sounds Skin: positive: Dryness Extremities: positive: Pedal edema (slight pedal edema up to ankles left greater than right) Neurologic/Psychiatric: positive: Mood/affect nml, Disoriented to time, Flat affect, Other (Patient does manage his medications with oversight from his , he can do his own eyedrops. He continues to read, despite his macular degeneration. He does not perceive himself with having any cognitive issues.) Palliative Care - POLST Patient has POLST: Yes POLST Status: DNR, Selective Treatment Pain: No pain Tiredness/Fatigue: None Drowsiness/Sedation: None Nausea: None Depression: None Anxiety: None Dyspnea: Moderate (4-6) Anorexia: None Sleep: Variable sleep pattern (up frequently to void) Constipation: No Feelings of wellbeing/Perceived Quality of Life: Fair, Acceptable, No change Performance Status: Patient is ambulatory, able to attend to his own ADLs. His does provide oversight and cueing for more complicated executive function tasks. - Palliative Care Discussion: Has spoken the previously she was quite concerned about his deterioration in his renal status, we did discuss in the context of progression, patients can stay at CKD stage IV for extended periods of time, we did discuss he is maximally managed as far as medications, he is functional, and has low symptom burden. We agreed there is no reason given his cognitive status, to further explore this in goals of care, as decision has been made not to pursue dialysis if this is worsening. Patient perceives his current quality of life is acceptable, he is not appreciative of the limitations that come with advanced stage and his decline in functional status. The positive reinforcement was given in his walking therapy, as he is really quite remarkable in the context they are still walking about a mile several times a week. Goals are to limit unnecessary testing and appointments, as they do cause patient some distress more in the context of his MCI. oversees and supports patient and advocates for his healthcare needs, she feels things are stabilized at the current moment, but aware this could change at any point. Results - Lab Results Lab results reviewed: Yes Impression and Recommendations - Palliative Care Impression: This is a viola 89-year-old gentleman with multiple comorbidities, with most pressing problem CKD stage IV. Patient is doing fairly well as far as his symptom burden, and quality of life is acceptable. Of care to continue provide support and anticipatory guidance, and coordination of care as needed. Recommendations/Counseling Done: 1. CKD stage IV. Patient at this point in time is not expected to pursue dialysis, his labs are worsening but patient without high symptom burden. He is doing better with fluid intake, less symptomatic of dizziness, no pruritus and most persistent symptom is fatigue and some activity intolerance with dyspnea. 2. Dyspnea. This is multifactorial in origin, patient has improved with his improved fluid status and progressive ambulation. Counseling provided to continue current walking program as has been beneficial. 3. Generalized weakness. Patient's balance continues to improve with regular activity, he still remains somewhat sedentary, they have planned a vacation to [place] as he is improved to be able to participate in ambulating. This is been a good short-term goal and very motivated for him. 4. COREY. Patient continues to work with the sleep center, he continues to be problematic as far as finding good settings and mask, but is doing fairly well. 5. MCI. Patient has multiple sensory deficits including hearing and macular degeneration, he has had his hearing aids adjusted. In separate discussion with his , at this point in time will not pursue neurocognitive testing. They are managing and patient most likely would not benefit from medications at this point. 6. Advanced care planning. Patient does have a POLST in place with DNA R and selective treatments. His D POA is his Nov [phone]. Patient is at hi gh risk for sequela from a fall, has not had any recent acute hospitalizations, nor infections. He does have multiple comorbidities impacting his prognosis in the future. Palliative care will continue to focus on patient and family goals. Time Spent: 60 minutes with greater than 50% of this done in counseling regarding goals of care, symptom management, and anticipatory guidance. We will continue to provide support every 6 to 8 weeks will call if there is any acute changes.
== END 2019-09-01 10:00 | disposition home or self-care (01) ==
LOC: PC 09:59
PROVIDERS: ATTEND Nurse Practitioner Adult Health
DX: Z51.5 Encounter for palliative care (principal); N18.4 Chronic kidney disease, stage 4 (severe); R06.00 Dyspnea, unspecified; R53.1 Weakness; G47.33 Obstructive sleep apnea (adult) (pediatric); F03.90 Unspecified dementia, unspecified severity, without behavioral disturbance, psychotic disturbance, mood disturbance, and anxiety; F06.8 Other specified mental disorders due to known physiological condition; Z79.899 Other long term (current) drug therapy; Z79.01 Long term (current) use of anticoagulants; Z66 Do not resuscitate
CPT/HCPCS: 99215

== ENCOUNTER 2019-10-20 15:22 | Outpatient (CLI) | payer MEDICARE ==
--- NOTE | 2019-10-21 13:57 | XRAY Report ---
Reason: GOUT,ACUTE,BUNION RT ANKLE/FOOT Procedure Date: 10/20/2019 Accession Number: [id number] / [id number] Procedure: XR - Foot 3 View RT CPT Code: Final Report FULL RESULT: EXAM: RIGHT FOOT RADIOGRAPHY EXAM DATE: 10/20/2019 03:39 PM. CLINICAL HISTORY: GOUT,ACUTE,BUNION RT ANKLE/FOOT. COMPARISON: None. TECHNIQUE: 3 views. FINDINGS: Bones: No fractures or bone lesions. Metatarsus primus varus/hallux valgus deformity. Joints: Severe DJD first MTP joint. Otherwise minor degenerative changes. Soft Tissues: Mild soft tissue swelling about the forefoot. Arterial calcifications are present. IMPRESSION: 1. No definite acute osseous abnormality. 2. Severe first MTP joint DJD. RADIA
--- NOTE | 2019-10-21 13:58 | XRAY Report ---
Reason: GOUT,ACUTE,BUNION RT ANKLE/FOOT Procedure Date: 10/20/2019 Accession Number: [id number] / [id number] Procedure: XR - Ankle 3 View RT CPT Code: Final Report FULL RESULT: EXAM: RIGHT ANKLE RADIOGRAPHY EXAM DATE: 10/20/2019 03:39 PM. CLINICAL HISTORY: GOUT,ACUTE,BUNION RT ANKLE/FOOT. COMPARISON: None. TECHNIQUE: 3 views. FINDINGS: Bones: No fractures or bone lesions. Joints: Unremarkable. Soft Tissues: Moderate soft tissue swelling about the distal lower leg and ankle. Vascular calcification are present. IMPRESSION: 1. No acute osseous abnormality. 2. Soft tissue swelling. RADIA
== END 2019-10-20 15:23 | disposition home or self-care (01) ==
LOC: DI 15:22
PROVIDERS: ATTEND Family Medicine
DX: M19.071 Primary osteoarthritis, right ankle and foot (principal); R22.41 Localized swelling, mass and lump, right lower limb

== ENCOUNTER 2019-11-03 08:44 | Outpatient (CLI) | payer MEDICARE ==
[2019-11-03 09:41] VITALS: BP 110/60
--- NOTE | 2019-11-03 09:41 | SLEEP CARE CONSULTATION ---
Information from patient questionnaire entered by Chrissy Neves. I have reviewed and concur with the information entered by Chrissy Neves. This document represents the service I personally performed and the decisions made by me, Ileana De La Rosa, RN, MSN, PASTE MAKER. History of Present Illness Previous diagnosis: Very Severe, Obstructive Sleep Apnea-Hypopnea Syndrome AHI: 70.3 Reason for follow up: three month Equipment type: CPAP Equipment obtained from: [employer] Prior sleep studies: Yes HPI additional information: The pressure was lowered to [id number] to see if would reduce central apneas. Patient spouse called 08/719 noting increased AHI and thus the pressure was changed back to [id number] Patient also treated for gout since last seen in addition to URI. CPAP Compliance Data - Data Reviewed with Patient Average duration of nightly device use: 9H 32M Compliance rate %: 97.8 Current pressure setting (cmH2O): 16 Humidity settin Heated hose settin Average residual AHI: 14 (9.6 the past 2 weeks since feeling better from URI ) Average large leak: 1m 22s Subjective Missed days of use due to: reports: other (the 2 missed days seem to be a data error as patient and spouse states he uses nightly ) Patient concerns: reports: mask leak noise (occasionally ), nasal congestion (sa line nasal spray used prior to CPAP). denies: aerophagia, mask discomfort, air blowing in eyes, condensation in mask/hose Observed to snore while using device: No Current pressure setting perceived as: comfortable On therapy, patient: reports: sleeping better, awakening more refreshed, being more awake and alert during the day, more rested overall. denies: drowsiness while driving (not driving at this time. drives ) Initial Dexter Sleepiness Scale score: 4 Current Dexter Sleepiness Scale score: 3 Allergies and Home Medications Known drug allergies: Yes (see list) Home medication list reviewed: Yes Allergy and home medication list: Medication Name (generic/name brand) Strength & Dosage Atorvastatin Calcium 80mg tab one daily Metrogel 1% External Gel Apply daily to facial lesions Losartan Potassium 25mg tab one daily Coreg (Carvedilol) 12.5 mg tab twice daily Amiodarone HCL 200mg tab one daily Levothyroxine Sodium 100mcg one daily Acyclovir 400mg tab one twice daily Cyclosporin Ophthalmic 0.1% Solution One drop twice daily Torsemide 10mg tab EOD, 20mg EOD alternating Warfarin 2mg tab as directed Zyrtec Allergy 10mg tab one daily as needed Multivitamin Tab one daily Perrigo Saline Nasal [place]wood Use nightly Dorzolamide Eye Solution 10ml One drop both eyes twice daily prednisone 20mg daily -for gout Allergy List Lonnie inhibitors Calcium channel blockers Zocor Keflex Pollen Smoke Review of Systems Review of systems same as previous: No (URI late August that lasted about 4 weeks. Increased AHI noted at that eduardo) Physical Exam Blood Pressure: 110/60 Cuff size: long Heart Rate: 93 O2 Saturation: 96 Height: 5 ft 4.5 in Weight: 208 lb 9.6 oz Body Mass Index: 35.2 BMI Classification: Obesity Class 2 Impression and Plan 1. Obstructive Sleep Apnea-Hypopnea Syndrome, very apnea, with good treatment compliance and slightly elevated residual AHI. On CPAP therapy, the patient has better sleep quality and is more rested overall. The reduction of CPAP pressure to [id number] after last visit increased residual AHI and so increased pressure back to [id number]. The residual AHI seems best at this current pressure of [id number] after review of past few visits. Thus no changes will be made. It appears AHI elevated during URI only and is now back to mild elevation the past 2 weeks. Mask leaks are now controlled. Patient's apnea severity and rationale for treatment to reduce apnea, improve sleep quality and reduce cardiovascular and cerebrovascular events was reviewed. I also reviewed the benefit of consistent device use of CPAP for hypertension, arrhythmia. * Continue CPAP pressure at 16 cmH2O * Notify me if snoring with mask or feeling that the pressure is too much or too little * Attempt to lose weight * Return for follow up in 6 months , or sooner if concerns arise I spent 100% of this 25 minute visit face to face with the patient with greater than 50% of this was spent time counseling the patient and coordination of care.
== END 2019-11-03 08:45 | disposition home or self-care (01) ==
LOC: SC 08:44
PROVIDERS: ATTEND Nurse Practitioner Family
DX: G47.33 Obstructive sleep apnea (adult) (pediatric) (principal); E66.9 Obesity, unspecified; Z68.35 Body mass index [BMI] 35.0-35.9, adult
CPT/HCPCS: 99212; 99213

== ENCOUNTER 2019-11-10 11:26 | Outpatient (CLI) | payer MEDICARE ==
--- NOTE | 2019-11-10 19:47 | CONSULTATION NOTE ---
Palliative Care Follow Up - Referral Referring Provider: Riya Glover PA-C Time of Visit: 7525-8297 Referral setting: [facility] [place] Referral Reason: Gout/CKD IV/Acute pain - Information Sources Records reviewed: Previous records reviewed History/Review of Systems obtained from: Patient, Family ( Hugo) Exam limitations: Clinical condition (patient with mild STM deficits) - History of Present Illness Update Brief HPI Update: This is a viola 89-year-old gentleman who presents with multiple comorbidities, who has had a series of exacerbations of his underlying chronic conditions. In addition to this, he is also presented with acute gout, recently treated with high doses of prednisone, he has just completed his taper over 21 days. He has had some improvement in his erythema and swelling of his first MTP joint, and in his pain with walking, but still reports significant discomfort with any kind of weightbearing. reports she recalls first symptoms were actually in August, when he was having increased pain with walking, and original pain and discomfort was actually in his lateral right ankle. He also at this time was diagnosed with a severe upper respiratory infection, did receive antibiotics without improvement, so assumed to be viral. He recovered slowly without any other residual symptoms. He was originally treated for his gout with colchicine, without much improvement, he is unable to have NSAIDS, thus treated with Prednisone. Patient has longstanding chronic lower extremity edema, and both by observation with current provider and report appears to be just slightly above baseline. He though does appear to have somewhat of a cushingoid appearance in his face much rounder with some periorbital edema. I suspect also he has had some fluid retention, his weight in his cardiology record on 08/02 was 204, and 11/04 209. His who weighs him regularly in the a.m. without clothes, rep orts his weight this morning was 203, his baseline weight usually runs between 195 and 200. He continues with baseline breathlessness, his gait is much more measured today though this is related to pain. He still gets easily winded. He does not have any crackles, wheezes, or changes in his breath sounds. At his recent appointment in follow-up for his atrial fib with electrophysiology, he was found on exam to experience breakthrough atrial fib despite his antiarrhythmic drug therapy with amiodarone. His recent device check it showed AF burden of 16%, up from 10%. Though he has remained as ymptomatic, was recommended he proceed with a cardioversion. He is scheduled for this in the upcoming week discussion ensued regarding weighing benefits and burdens of interventions in the context of his goals of care, patient still perceives his current quality of life as acceptable, and they are proceeding. Patient able to express his concern over his multiple recent health problems, and implications regarding this for him emotionally. His other ongoing issues, are his CKD stage IV, with no recent labs, MCI, sleep apnea, tachybradycardia syndrome, CAD, dilated cardiomyopathy, hyperlipidemia, chronic dizzyness, Congestive heart failure/combined systolic/diastolic, hypertension, ocular degeneration, glaucoma, history of corneal transplant Social History - Living Situation Living arrangement: At home Living Situation: With spouse/s.o. Support System: Patient has been to his for 41 years, they have a blended family of sons total. He continues to attend and participate in the [employer], they have active mormonism family community. Hugo is very attentive, and directs his medical care. Janell defers to her, she is very respectful of his participation, but with his memory deficits and hearing deficits finds it challenging to participate. She is very focused on taking a palliative care approach and focus on quality of life. 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 Medications/Allergies - Medications Home Medications: Ambulatory Orders Medication Instructions Recorded Confirmed Atorvastatin Calcium [Lipitor] 80 mg PO QPM 02/06/17 11/11/19 Carvedilol [Coreg] 12.5 mg PO BID 02/06/17 11/11/19 Losartan [Cozaar] 25 mg PO ACHS 02/06/17 11/11/19 Acyclovir 400 mg ORAL BID 02/15/19 11/11/19 Amiodarone [Pacerone] 200 mg ORAL DAILY 02/15/19 11/11/19 Cyclosporine [Restasis] 1 drops EACHEYE BID 02/15/19 11/11/19 Metronidazole [Metrogel] 1 applic TOP DAILY PRN 02/15/19 11/11/19 Torsemide 20 mg PO .QOD 02/15/19 11/11/19 Warfarin Sodium 2 mg DAILY MDD managed PCP 02/15/19 11/11/19 Dorzolamide 2% Ophth Drops 1 drops EACHEYE BID 05/18/19 11/11/19 [Trusopt 2% Ophth Drops] Multivitamin [Multivitamins] 1 tab PO DAILY 05/18/19 11/11/19 Torsemide 10 mg PO .QOD 05/18/19 11/11/19 Cyanocobalamin (Vitamin B-12) 1,000 mg PO DAILY 07/14/19 11/11/19 [Vitamin B-12] Folic Acid 1 mg PO DAILY 07/14/19 11/11/19 Levothyroxine [Synthroid] 100 mcg PO DAILY 07/14/19 11/11/19 Acetaminophen 1,000 mg PO TID PRN 11/11/19 11/11/19 - Allergies Allergies/Adverse Reactions: Allergies Allergy/AdvReac Type Severity Reaction Status Date / Time simvastatin [From Zocor] Allergy Cramps Verified 02/15/19 14:26 [id number]-Agh-Xip Reductase AdvReac Unknown Verified 02/15/19 10:37 Inhibitor Review of Systems - Constitutional Constitutional: reports: Fatigue, Weight gain (appears to be fluid gain). denies: Fever, Chills - Eyes Eyes: reports: Blurred vision, Vision loss - Ears, Nose & Throat Ears, Nose & Throat: reports: Hearing loss, Hearing aids - Cardiovascular Cardiovascular: reports: Irregular heart rate, Edema, Lightheadedness, Exertional dyspnea, Decr. exercise tolerance - Respiratory Respiratory: reports: Snoring (CPAP), SOB with exertion. denies: SOB at rest - Gastrointestinal Gastrointestinal: reports: Good appetite. denies: Constipation - Genitourinary Genitourinary: reports: Frequency - Musculoskeletal Musculoskeletal: reports: Stiffness, Joint pain, Other (pain in feet with weightbearing attributed to gout) - Integumentary Integumentary: reports: Dryness - Neurological Neurological: reports: General weakness, Memory problems, Abnormal gait - Psychiatric Psychiatric: reports: Anxiety. denies: Depression - Endocrine Endocrine: reports: Hypothyroidism - All Other Systems All Other Systems: reports: Reviewed and negative Physical Exam - Vital Signs Temperature: 36.8 C Pulse Rate: 68 Respiratory Rate: 18 Blood Pressure: 125/67 - Physical Exam General Appearance: positive: Alert, Mild distress Eyes Bilateral: positive: Normal inspection ENT: positive: No signs of dehydration Neck: positive: No JVD, Trachea midline. negative: Lymphadenopathy (R), Lymphadenopathy (L) Cardiovascular: positive: Irregular Respiratory: positive: Diminished in bases, Other (increased breathlessness noted with activity of ambulation/conversation). negative: Wheezes, Rales, Rhonchi Abdomen: positive: Soft, Nml bowel sounds, Other (rounded and firm) Skin: positive: Dryness Extremities: positive: Pedal edema (2+ bilateral up to knee; right greater than left) Neurologic/Psychiatric: positive: Oriented x3, Mood/affect nml, Weakness, Flat affect Palliative Care - POLST Patient has POLST: Yes POLST Status: DNR, Selective Treatment Pain: Pain worsening, Location, Severity (mod/severe but improved from original flair; has not trialed APAP-worsens with weight bearing; right foot greater than left) Tiredness/Fatigue: Severe (7-10) (notes increased fatigue last several weeks from baseline) Nausea: None Anorexia: None Dyspnea: Moderate (4-6) Depression: Moderate (4-6) (does report decreased interest in reading/crosswords-unclear if this is depressive feelings or related to fatigue) Anxiety: Moderate (4-6) (see PC discussion) Feelings of wellbeing/Perceived Quality of Life: Good, Acceptable, Worsening Sleep: Variable sleep pattern (continuing to work with sleep center to adjust CPAP; with patients MCI does not appear prudent to do overnight testing- increased anxiety in considering) Constipation: No Performance Status: Patient at baseline, does move quite slow, but is been able to manage his own ADLs and continue with there ongoing walks. Unfortunately over the last few weeks, with exacerbation of his gout pain and weightbearing causing increased distress, has been more sedentary, and gait more slow and unsteady, with higher risk of falls. - Palliative Care Discussion: When explored patient's fears and concerns, patient able to share he was afraid to make it to [place]. He does understand some basic level of the seriousness and unpredictability of his current health problems. He has had multiple appointments, which most likely of added to his anxiety and somewhat to feeling overwhelmed. Both he and his , still perceives they have good quality of life in the context of his limitations. Explored again a palliative approach, of weighing benefits and burdens of treatment decisions is a occur. Given the goal is to weigh these in the context of improving quality of life, they are continuing to pursue support through specialists, requesting assistance with coordinating care. Results - Lab Results Lab results reviewed: Yes Lab and Imaging Results: see addendum Impression and Recommendations - Palliative Care Impression: This is a viola 89-year-old gentleman with multiple comorbidities, now experiencing exacerbation of his atrial fib, new diagnosis of acute gout, and concern for impact on his underlying CKD stage IV. Patient does present with some symptoms of fluid retention, suspect attributed to recent prednisone, and presents with increased symptom burden of pain, fatigue, anxiety, and dyspnea. Palliative care providing support for symptom management, coordination of care, and anticipatory guidance. Recommendations/Counseling Done: 1. Gout. Patient recently completed prednisone, continues with residual symptoms of pain and tenderness, though improved from baseline. Given patient's underlying CKD 4, patient without any recent kidney function studies, will add uric acid. Discussion regarding concerns of interplay of gout/kidney function included follow-up with nephrology, will coordinate care with long-term management as does not have pending appointment until November. 2. Acute pain in feet related to gout. Recommend they do trial acetaminophen 1000 mg twice daily, instructed to take 1 hour before beginning activities. Patient does perceive this as a barrier as far as his functional status, aware of not to use NSAIDS, provided information also about use of low dose opioids if worsens or not effective, would like to avoid given fall risk and balance issues, but also concern for further deconditioning if avoiding activity and walking. Had improved in baseline prior to gout. 3. CKD Stage IV. In addressing 's concerns, and also in follow-up regarding mild symptoms of fluid overload, will follow up with nephrology. Lab tests ordered today, requested send me a.m. weights, patient may benefit from short burst of increase in torsemide. Suspect fluid retention as a side effect of his prednisone. We will coordinate care with Dr. Blake Barker. 4. Paroxysmal atrial fib. Patient is scheduled next week for cardioversion. Counseling provided and follow-up regarding concerns, weighing benefits and burdens of procedures that can impact quality of life, and addressed questions as best able. continues to advocate appropriately, that is complicated with multiple patient's specialists. 5. Advanced care planning. Patient does have POLST in place, with DNA R and selective treatments. Chon ROACH is his Nov [phone]. Patient feeling somewhat vulnerable with his most recent encounters and exacerbation of his chronic conditions. Patient is quite frail and remains high risk for further complications and decline. Patient's current quality of life is acceptable though currently impacted by worsened symptom burden. Palliative care to continue to provide support for symptom management, coordination of care, and anticipatory guidance. Patient on the Tee Index, it looks at community dwelling adults age 65 years and older and all cause 1 year mortality. Patient scores a 7, which puts him at a 29.5% for risk of 1 year mortality. Risk calculators cannot predict the future for anyone individual but gives an estimate of how many people with similar risk factors will live and but cannot identify who will live and he will . ADDENDUM: Patient did obtain labs today, his sodium was 140; potassium 4.3; BUN 44, down from BUN 9/9 of 64; creatinine 2.6 down from 9/9 of 2.93; uric acid high at 9.7, total bilirubin staying somewhat elevated at 1.4; total protein is 6.0. In follow-up with , she would like coordination of care and recommendations for management of gout from skip operator. Agreed would reach out in a.m., also patient may benefit from increase in diuretics for short period. Time Spent: 60 minutes with greater than 50% of this done in counseling regarding pain and symptom management, anticipatory guidance, psychosocial support, and coordination of care.
== END 2019-11-10 11:27 | disposition home or self-care (01) ==
LOC: PC 11:26
PROVIDERS: ATTEND Nurse Practitioner Adult Health
DX: Z51.5 Encounter for palliative care (principal); M10.9 Gout, unspecified; I12.9 Hypertensive chronic kidney disease with stage 1 through stage 4 chronic kidney disease, or unspecified chronic kidney disease; I11.0 Hypertensive heart disease with heart failure; N18.4 Chronic kidney disease, stage 4 (severe); I50.40 Unspecified combined systolic (congestive) and diastolic (congestive) heart failure; I48.0 Paroxysmal atrial fibrillation; Z79.899 Other long term (current) drug therapy; Z79.01 Long term (current) use of anticoagulants; Z66 Do not resuscitate
CPT/HCPCS: 99215

== ENCOUNTER 2019-11-10 12:36 | Outpatient (CLI) | payer MEDICARE ==
[2019-11-10 13:22] LABS: ALBUMIN 3.5 g/dL (3.2-5.5); ALBUMIN/GLOBULIN RATIO 1.4 (1.0-2.2); BILIRUBIN,TOTAL 1.4 mg/dL (0.2-1.0); CALCIUM 8.5 mg/dL (8.5-10.3); CREATININE 2.6 mg/dL (0.6-1.2); URIC ACID 9.7 mg/dL (2.6-7.2)
== END 2019-11-10 12:37 | disposition home or self-care (01) ==
LOC: LAB 12:36
PROVIDERS: ATTEND Nurse Practitioner Adult Health
DX: Z79.899 Other long term (current) drug therapy (principal); M10.9 Gout, unspecified
CPT/HCPCS: 36415; 80053; 84550

== ENCOUNTER 2019-12-15 11:29 | Outpatient (CLI) | payer MEDICARE ==
--- NOTE | 2019-12-15 17:09 | CONSULTATION NOTE ---
Palliative Care Follow Up - Referral Referring Provider: Riya Glover PA-C Time of Visit: [id number] Referral setting: [facility] [place] Referral Reason: CKD IV/CHF/Fatigue - Information Sources Records reviewed: Previous records reviewed History/Review of Systems obtained from: Patient, Family ( Hugo) Exam limitations: Clinical condition (patient with STM deficits) - History of Present Illness Update Brief HPI Update: This is a viola 89-year-old gentleman with multiple comorbidities, has had a series of exacerbations of his underlying chronic conditions. He most recently was scheduled for a cardioversion in October, which he did receive, but was told it was ineffective. Though he is back in regular sinus rhythm today. They are continuing to follow him, and recently increased his amiodarone to 300 mg to see if this will improve in chronic atrial fib. After follow-up with nephrology from last visit 11/10 with gout exacerbation, patient is on febuxostat. He has had recurrent gout, and recommendation was for maintenance therapy. He unfortunately had his nephrology appointment rescheduled because of weather, but he will make final recommendations regarding ongoing therapy. Pain from his gout has improved, he is able to ambulate better, but remains quite fragile. For his , high anxiety regarding some outcomes regarding recent PFTs, he is scheduled to see the dermatology technician in 1 month, she is unclear exactly what triggered this, will try and locate final of report. His lungs are clear though, O2 sats 99%, patient continues with dyspnea on exertion and more limiting. Patient has been sleeping fairly well, does have his CPAP, but still continues to have fatigue. reports he does sleep during the day as well. Patient himself, presents with mild cognitive impairment. He does engage in conversation, when asked what he worries about most, feels his does enough for him for both of them. He does feel quite fatigued, reports overall may be only slightly better, but not much. He did receive a magnifying reading apparatus, which has allowed him to read easier, this is something that does bring him nancy. He shared about his love of mysteries. They do have a trip planned to [place] in January, continue to set small goals. Past medical history includes CKD stage IV,, MCI, sleep apnea, tachybradycardia syndrome, CAD, dilated cardiomyopathy, hyperlipidemia, chronic dizziness, CHF with combined systolic diastolic heart failure. Hypertension, macular degeneration, coma, and history of corneal transplant Social History - Living Situation Living arrangement: At home Living Situation: With spouse/s.o. Support System: Patient and his have been 41 years, they have a blended family. She tries to make sure he attends and participates as much as possible in his ongoing activities including [employer] and latter day family. Hugo is very attentive and directs his medical care. Patient defers to her, but she is very respectful of his participation. His memory deficits and hearing deficits make it difficult for him to participate. Their goal continues to be wanting to have a palliative care approach, though he is quite complicated. 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 Medications/Allergies - Medications Home Medications: Ambulatory Orders Medication Instructions Recorded Confirmed Atorvastatin Calcium [Lipitor] 80 mg PO QPM 02/06/17 12/16/19 Carvedilol [Coreg] 12.5 mg PO BID 02/06/17 12/16/19 Losartan [Cozaar] 25 mg PO ACHS 02/06/17 12/16/19 Acyclovir 400 mg ORAL BID 02/15/19 12/16/19 Amiodarone [Pacerone] 300 mg ORAL DAILY 02/15/19 12/16/19 Cyclosporine [Restasis] 1 drops EACHEYE BID 02/15/19 12/16/19 Metronidazole [Metrogel] 1 applic TOP DAILY PRN 02/15/19 12/16/19 Torsemide 20 mg PO .QOD 02/15/19 12/16/19 Warfarin Sodium 2 mg DAILY MDD managed PCP 02/15/19 12/16/19 Dorzolamide 2% Ophth Drops 1 drops EACHEYE BID 05/18/19 12/16/19 [Trusopt 2% Ophth Drops] Multivitamin [Multivitamins] 1 tab PO DAILY 05/18/19 12/16/19 Torsemide 10 mg PO .QOD 05/18/19 12/16/19 Cyanocobalamin (Vitamin B-12) 1,000 mg PO DAILY 07/14/19 12/16/19 [Vitamin B-12] Folic Acid 1 mg PO DAILY 07/14/19 12/16/19 Levothyroxine [Synthroid] 100 mcg PO DAILY 07/14/19 12/16/19 Acetaminophen 1,000 mg PO TID PRN 11/11/19 12/16/19 Febuxostat [Uloric] 40 mg PO DAILY 12/16/19 12/16/19 - Allergies Allergies/Adverse Reactions: Allergies Allergy/AdvReac Type Severity Reaction Status Date / Time simvastatin [From Zocor] Allergy Cramps Verified 02/15/19 14:26 [id number]-[id number]-Hzq Reductase AdvReac Unknown Verified 02/15/19 10:37 Inhibitor Review of Systems - Constitutional Constitutional: reports: Fatigue, Weakness, Weight gain. denies: Fever, Chills - Eyes Eyes: reports: Vision loss (macular degeneration) - Ears, Nose & Throat Ears, Nose & Throat: reports: Hearing loss, Hearing aids, Nasal congestion - Cardiovascular Cardiovascular: reports: Irregular heart rate, Exertional dyspnea, Decr. exercise tolerance. denies: Chest pain - Respiratory Respiratory: reports: SOB with exertion. denies: SOB at rest - Gastrointestinal Gastrointestinal: reports: Good appetite. denies: Constipation, Diarrhea, Nausea - Genitourinary Genitourinary: reports: Frequency - Musculoskeletal Musculoskeletal: reports: Stiffness, Muscle weakness, Joint pain (foot pain improved) - Integumentary Integumentary: reports: Dryness - Neurological Neurological: reports: General weakness, Memory problems, Abnormal gait - Psychiatric Psychiatric: reports: Depression - Endocrine Endocrine: reports: Hypothyroidism - All Other Systems All Other Systems: reports: Reviewed and negative Physical Exam - Vital Signs Temperature: 36.8 C Pulse Rate: 72 O2 Saturation: 99 (ra @ rest) Blood Pressure: 106/56 - Physical Exam General Appearance: positive: Alert Eyes Bilateral: positive: Normal inspection, Other (periorbital edema right greater than left) ENT: positive: No signs of dehydration Neck: positive: No JVD, Trachea midline Cardiovascular: positive: Regular rate & rhythm Respiratory: positive: No respiratory distress, Breath sounds nml Abdomen: positive: Soft, Nml bowel sounds, Obese Skin: positive: Dryness Extremities: positive: Pedal edema (trace bilat) Neurologic/Psychiatric: positive: Oriented x3, Mood/affect nml, Weakness, Flat affect Palliative Care - POLST Patient has POLST: Yes POLST Status: DNR, Selective Treatment Pain: Pain improved, Location (feet; not needing any medication) Tiredness/Fatigue: Severe (7-10) Drowsiness/Sedation: Moderate (4-6) (sleeping more) Nausea: None Anorexia: None Dyspnea: Severe (7-10) (with activity only; not at rest) Depression: Moderate (4-6) Anxiety: Mild (1-3) Feelings of wellbeing/Perceived Quality of Life: Fair, Acceptable, Improved Sleep: Variable sleep pattern Constipation: No Performance Status: Patient has had declining functional status, is sleeping more, has less activity tolerance. This is impacted both by his fatigue and his dyspnea. is concerned is patient seems more listless and not engaged in activities, though reports he has perked up over the last couple days. Patient is able to ambulate without assistive device, but frequent rest periods does oversee and provides safety for ADLs. - Palliative Care Discussion: Patient remains quite fragile, does understand the seriousness of his underlying conditions. They are hoping to continue with focusing on quality of life, currently they are managing, but she does have concerns regarding his emotional health in response to his ongoing decline. Patient does have difficulty expressing his worries, seems less anxious than last time, does make eye contact, unclear how much he understands as far as the seriousness of his illness, does defer to his regarding managing his medical issues. Patient does have a POLST in place, with DNA R/limited interventions, no tube feedings and antibiotics prolong life. He has not had any recent hospitalizations, though continues to have complications regarding his multiple comorbidities. Results - Lab Results Lab results reviewed: Yes Lab and Imaging Results: Labs done on 11/18 shows sodium 141, potassium 4.0 BUN 37, this is somewhat improved, creatinine 2.55 this is remained stable, and GFR 22 which is been consistent as well. Impression and Recommendations - Palliative Care Impression: This is a viola 89-year-old gentleman with multiple core committees, currently being trialed on increased dosing of amiodarone for an exacerbation of his atrial fib. Patient with resolving gout symptoms, has follow-up with integration software engineer next week regarding his CKD stage IV. Patient struggling with moderate to high symptom burden, regarding dyspnea and fatigue. Palliative care continue provide support for symptom management, coordination of care, and anticipatory guidance Recommendations/Counseling Done: 1. History of gout. Patient continues on his Febuxostat 40 mg daily, Current symptoms under control. Patient is able to ambulate with decreased pain. Patient to see integration software engineer, will have him further follow-up and any other recommendations regarding ongoing support. Acute pain is currently resolved, but has not returned to his previous level of functioning. 2. CKD stage IV. Patient's labs from 11/18 show holding pattern. No labs needed today, will be following up with Dr. Blake Barker. 3. Paroxysmal atrial fib. Unfortunately unknown outcome regarding cardioversion, currently in sinus rhythm. Working with cardiology. Patient currently on increased dose of amiodarone, is concerned about long-term side effects and worsening of underlying condition. 4. Dyspnea. Patient has had ongoing dyspnea with activity, no shortness of breath at rest. Has had recently PFTs, was told there was something of alarm, and to have follow-up with pulmonology. Patient's O2 sats are fine, patient does not appear any kind respiratory distress. He is managed with a CPAP at night. Will follow up and get results to see if can interpret findings. 5. Advanced care planning. Patient does have POLST in place, with DNA R and selective treatments. Patient continues with multiple specialists and encounters, his quality of life continues to deteriorate, though is fairly slow at this point in time. Patient does not present with high anxiety today, has not had any recent hospitalizations, weight is stable. We will continue to follow. Counseling provided regarding normalizing feelings of grief and loss with decreased independence, and worsening of symptoms. Time Spent: 45 minutes with greater than 50% of this done in counseling regarding symptom management, anticipatory guidance, psychosocial support, and coordination of care
== END 2019-12-15 11:30 | disposition home or self-care (01) ==
LOC: PC 11:29
PROVIDERS: ATTEND Nurse Practitioner Adult Health
DX: Z51.5 Encounter for palliative care (principal); I13.0 Hypertensive heart and chronic kidney disease with heart failure and stage 1 through stage 4 chronic kidney disease, or unspecified chronic kidney disease; I50.40 Unspecified combined systolic (congestive) and diastolic (congestive) heart failure; N18.4 Chronic kidney disease, stage 4 (severe); I48.0 Paroxysmal atrial fibrillation; R53.83 Other fatigue; G31.84 Mild cognitive impairment of uncertain or unknown etiology; M10.9 Gout, unspecified; Z79.899 Other long term (current) drug therapy; Z79.01 Long term (current) use of anticoagulants; Z66 Do not resuscitate
CPT/HCPCS: 99215

== ENCOUNTER 2020-02-16 10:31 | Outpatient (CLI) | payer MEDICARE ==
[2020-02-16 16:47] LABS: ALBUMIN 4.1 g/dL (3.2-5.5); ALBUMIN/GLOBULIN RATIO 1.7 (1.0-2.2); BILIRUBIN,TOTAL 0.8 mg/dL (0.2-1.0); CALCIUM 8.5 mg/dL (8.5-10.3); CREATININE 2.9 mg/dL (0.6-1.2); TOTAL PROTEIN 6.5 g/dL (6.7-8.2); URIC ACID 2.8 mg/dL (2.6-7.2)
== END 2020-02-16 10:32 | disposition home or self-care (01) ==
LOC: LAB.S 10:31
PROVIDERS: ATTEND Physician Assistant Medical
DX: M1A.9XX0 Chronic gout, unspecified, without tophus (tophi) (principal)
CPT/HCPCS: 36415; 80053; 84550

== ENCOUNTER 2020-05-02 15:05 | Outpatient (CLI) | payer MEDICARE ==
--- NOTE | 2020-05-02 16:06 | ADVANCE CARE PLANNING NOTE ---
Advance Care Planning - Planning Encounter Date: 05/02/20 Time: 15:05 (to 1555) Parties in Attendance: Anneliese Morfinsteffi
--- NOTE | 2020-05-02 16:22 | PROVIDER PROGRESS NOTE ---
HPI/Interval History - HPI/Interval History ADVANCED CARE PLANNING VISIT This is a viola 89-year-old gentleman with multiple comorbidities, has had recurrent exacerbations of his underlying chronic conditions. He has a history of tachybradycardia syndrome, with permanent pacemaker implantation in 2009, has had prior paroxysmal atrial fib with multiple ablations in the past, Has been amiodarone in the past, and concern for amiodarone toxicity. He has chronically been anticoagulated, and recently on 04/07/2020 showed a device alert, and had to have pacemaker urgently adjusted and addressed. He has recently been in the emergency room, with an exacerbation of CHF, and weight gain. This was on 04/05, he had his procedure on 04/19, according to the and records, he had had experienced a decline in his ejection fraction to 45 to 50%, has been on optimal medical therapy, and does have underlying coronary artery disease, and has been more dependent on the pacing component. They did discuss and it was decided to upgrade his device to a biventricular with a new compatible generator, with a third lead. He did have this done, and calling with concerns regarding patient's underlying worsening cognitive status. She reports that she is noticed most, is a change in his functional and cognitive status. He had been sleeping 9-1/2 hours at night, this is continued. He had also been sleeping about 4 hours a day prior, was at baseline having word finding issues, and intermittent confusion. Patient does have known mild cognitive decline and dementia. He often defers to his and has poor short term memory issues. He reports what she is notices he is sleeping up to 8 hours during the day, has had increased confusion particularly with time and spacing, his words have been worse. He has been losing his ability to make "connections". Such as getting up in the middle the night to dress, forgetting how to do his regular routine of breakfast, asking how and what to eat with. He is worse at problem solving and executive function. She reports this is slowly improved at some level but not consistently, but still is not back to his baseline. She is quite familiar with dementia, as her mother had it, and each time she had an intervention or hospitalization, declined further as well. She is concerned, he does have some confabulation and possibly some delusions, has had hallucinations in the past but not recently. He is cooperative, but remains somewhat perseverative at times. She is concerned regarding his ongoing quality of life. Patient continues with limited and ongoing functional decline, patient does attribute some of this to his painful feet or gout. She has contacted palliative care to continue to have conversations around goals of care. She is feeling like his quality of life is declining, he is not able to participate in decision-making, and does feel that his weight. 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 She is concerned about decisions in the future, and has made contact to have conversations regarding weighing benefits and burdens moving forward. Medications/Allergies - Medications Home Medications: Ambulatory Orders Medication Instructions Recorded Confirmed Atorvastatin Calcium [Lipitor] 80 mg PO QPM 02/06/17 05/02/20 Losartan [Cozaar] 12.5 mg PO ACHS 02/06/17 05/02/20 Acyclovir 400 mg ORAL BID 02/15/19 05/02/20 Cyclosporine [Restasis] 1 drops EACHEYE BID 02/15/19 05/02/20 Metronidazole [Metrogel] 1 applic TOP DAILY PRN 02/15/19 05/02/20 Torsemide 20 mg PO DAILY 02/15/19 05/02/20 Warfarin Sodium 2 mg DAILY MDD managed PCP 02/15/19 05/02/20 Dorzolamide 2% Ophth Drops 1 drops EACHEYE BID 05/18/19 05/02/20 [Trusopt 2% Ophth Drops] Multivitamin [Multivitamins] 1 tab PO DAILY 05/18/19 05/02/20 Cyanocobalamin (Vitamin B-12) 1,000 mg PO DAILY 07/14/19 05/02/20 [Vitamin B-12] Folic Acid 800 mcg PO DAILY 07/14/19 05/02/20 Levothyroxine [Synthroid] 100 mcg PO DAILY 07/14/19 05/02/20 Acetaminophen 1,000 mg PO TID PRN 11/11/19 05/02/20 Febuxostat [Uloric] 40 mg PO DAILY 12/16/19 05/02/20 Metoprolol Succinate 100 mg PO DAILY 05/02/20 05/02/20 - Allergies Allergies/Adverse Reactions: Allergies Allergy/AdvReac Type Severity Reaction Status Date / Time simvastatin [From Zocor] Allergy Cramps Verified 02/15/19 14:26 Pqamrgz-Jad-Hli Reductase AdvReac Unknown Verified 02/15/19 10:37 Inhibitor Palliative Care - POLST Patient has POLST: Yes POLST Status: DNR, Selective Treatment - Palliative Care Discussion: Lengthy discussion related concerns of , regarding patient's declining quality of life. She sees both functional and cognitive decline, we discussed given his current acute procedure, would expect may take some time to know where the "new normal is" going to land. Patient has significant comorbidities, including worsening kidney function, she is quite clear given his most recent reaction to the procedure and just how difficult it was for him that not having dialysis in the future, is definitely the best choice. She is looking towards the future, and would be hard pressed to have him have any more procedures, and if his quality of life continues to decline, would consider more focusing on a comfort focused approach. He does have a wrap up with his deck specialist and channeler outsole next week, and we discussed meeting possibly with a home visit to further define goals of care on the week of 05/22. Her goals are to keep him at home for as long as possible, the threshold would be if he were incontinent, or needed increased physical care as she does have back problems. Currently he is independent enough that she can still assist him. She does not want to prolong any suffering, and feels his changes in his quality of life are of concern, when stepping back and looking at the bigger picture. He does have a POLST with DO NOT RESUSCITATE and limited interventions, we did discuss in the context of patient continues to decline or has another event, could transition him to hospice support if appropriate. Patient does have a blended family, a 5 sons total. They are totally supportive of her and her approach, she continues to keep them in the loop. We did discuss at length and counseling provided regarding the difficult role of advocate, particularly and patient is unable to participate in any meaningful way. Telehealth Visit - TeleMedicine Visit Referring Provider: Riya Glover PA-C Visit Type:: TeleHealth Video Call Patient agrees and consents to this telehealth visit type: Yes Patient agrees to have their insurance billed: Yes Time spent:: 50 minutes on Advanced Care Planning [id number] Video type:: [employer] Participants:: Spouse/Significant Other (I spent 100% on TeleHealth Video call for advanced care planning with ; patient unable to participate does not have decision making capacity) Location of provider:: Office Location of patient:: Home Provider Statement: I spent 100% on the TeleHealth Video Call with the patient with greater than 50% spent counseling the patient and coordination of care.
== END 2020-05-02 15:06 | disposition home or self-care (01) ==
LOC: PC 15:05
PROVIDERS: ATTEND Nurse Practitioner Adult Health
DX: Z51.5 Encounter for palliative care (principal); R41.89 Other symptoms and signs involving cognitive functions and awareness; R53.81 Other malaise; N28.9 Disorder of kidney and ureter, unspecified; I50.9 Heart failure, unspecified; I25.10 Atherosclerotic heart disease of native coronary artery without angina pectoris; F03.90 Unspecified dementia, unspecified severity, without behavioral disturbance, psychotic disturbance, mood disturbance, and anxiety; Z79.899 Other long term (current) drug therapy; Z79.01 Long term (current) use of anticoagulants; Z95.0 Presence of cardiac pacemaker; Z86.79 Personal history of other diseases of the circulatory system; Z66 Do not resuscitate
CPT/HCPCS: 99497; 99498

== ENCOUNTER 2020-05-05 12:32 | Outpatient (CLI) | payer MEDICARE | END 2020-05-05 12:33 | disposition critical access hospital (66) | LOC: EMS 12:32 | PROVIDERS: ATTEND Surgery | DX: R47.9 Unspecified speech disturbances (principal); R29.810 Facial weakness | CPT/HCPCS: A0425; A0429 ==

== ENCOUNTER 2020-05-05 12:44 | Emergency (ER) | payer MEDICARE ==
--- NOTE | 2020-05-05 12:52 | ED Physician Documentation ---
PD HPI FOCAL NEURO - Stated complaint Stated Complaint: TIA - History obtained from History obtained from: Patient, EMS - History of Present Illness Timing - onset: Today (89-year-old gentleman on warfarin, has dementia, pacemaker. From 1130 this morning to about 1150 he had a 20-minute TIA with right-sided facial droop and a aphasia. Now back to his baseline which is demented.) - Additional information Additional information: arrived shortly thereafter and corroborated the above history. He is in palliative care and we discussed whether or not we should do carotid imaging. She said she would like to know the results of it for prognosis but probably would not lean towards endarterectomy. Last INR was about 2 weeks ago when he had his pacemaker replaced. Review of Systems Unable to obtain: Dementia PD PAST MEDICAL HISTORY - Past Medical History Cardiovascular: Hypertension, High cholesterol, Atrial fibrillation Respiratory: None Neuro: None Endocrine/Autoimmune: None GI: Ulcers : None, Renal insuffiency HEENT: Glaucoma Psych: None Musculoskeletal: None Derm: None - Past Surgical History Past Surgical History: Yes General: Appendectomy Ortho: Other Cardiovascular: Pacemaker HEENT: Other (corneal transplant) - Present Medications Home Medications: Ambulatory Orders Medication Instructions Recorded Confirmed Atorvastatin Calcium [Lipitor] 80 mg PO QPM 02/06/17 05/02/20 Losartan [Cozaar] 12.5 mg PO ACHS 02/06/17 05/02/20 Acyclovir 400 mg ORAL BID 02/15/19 05/02/20 Cyclosporine [Restasis] 1 drops EACHEYE BID 02/15/19 05/02/20 Metronidazole [Metrogel] 1 applic TOP DAILY PRN 02/15/19 05/02/20 Torsemide 20 mg PO DAILY 02/15/19 05/02/20 Warfarin Sodium 2 mg DAILY MDD managed PCP 02/15/19 05/02/20 Dorzolamide 2% Ophth Drops 1 drops EACHEYE BID 05/18/19 05/02/20 [Trusopt 2% Ophth Drops] Multivitamin [Multivitamins] 1 tab PO DAILY 05/18/19 05/02/20 Cyanocobalamin (Vitamin B-12) 1,000 mg PO DAILY 07/14/19 05/02/20 [Vitamin B-12] Folic Acid 800 mcg PO DAILY 07/14/19 05/02/20 Levothyroxine [Synthroid] 100 mcg PO DAILY 07/14/19 05/02/20 Acetaminophen 1,000 mg PO TID PRN 11/11/19 05/02/20 Febuxostat [Uloric] 40 mg PO DAILY 12/16/19 05/02/20 Metoprolol Succinate 100 mg PO DAILY 05/02/20 05/02/20 Whole Blood Protime 1 unit TD ONCE #1 05/05/20 - Allergies Allergies/Adverse Reactions: Allergies Allergy/AdvReac Type Severity Reaction Status Date / Time simvastatin [From Zocor] Allergy Cramps Verified 05/05/20 12:52 Yfhjorg-Vgl-Evl Reductase AdvReac Unknown Verified 05/05/20 12:52 Inhibitor - Social History Does the pt smoke?: No Smoking Status: Never smoker Does the pt drink ETOH?: Yes Does the pt have substance abuse?: No - Immunizations Immunizations are current?: Yes - POLST Patient has POLST: Yes PD ED PE NORMAL - Vitals Vital signs reviewed: Yes - General General: Other (He is alert and oriented to person and place but not time or events. He says the month is March 1918.) - HEENT HEENT: PERRL, EOMI - Neck Neck: Supple, no meningeal sign, No bony TTP - Cardiac Cardiac: RRR, No murmur - Respiratory Respiratory: No respiratory distress, Clear bilaterally - Abdomen Abdomen: Non tender - Back Back: No CVA TTP, No spinal TTP - Derm Derm: Normal color, Warm and dry - Extremities Extremities: No edema, No calf tenderness / cord - Neuro Neuro: No motor deficit, No sensory deficit Eye Opening: Spontaneous Motor: Obeys Commands Verbal: Confused GCS Score: 14 NIHSS - Time Time: 12:47 - Level of Consciousness Level of consciousness: (0) Alert, Keenly responsive LOC Questions: (2) Answers neither correct LOC Commands: (0) Performs both correctly - Gaze Best Gaze: (0) Normal - Visual Visual: (0) No loss - Facial Palsy Facial Palsy: (0) Normal, symmetrical movement - Motor Arms (both separate) Motor Arm (right): (0) No drift Motor Arm (left): (0) No drift - Motor Legs (both separate) Motor Leg (right): (0) No drift Motor Leg (left): (0) No drift - Limb Ataxia Limb Ataxia: (0) Absent - Sensory Sensory: (0) Normal - Best Language Best Language: (0) No aphasia - Dysarthria Dysarthria: (0) Normal - Extinction and Inattention (formally neg Extinction and inattention: (0) No abnormality - Total Score/Results Total Score/Result: 2 Results - Vitals Vitals: Vital Signs - 24 hr 05/05/20 05/05/20 05/05/20 12:50 13:26 13:30 Temperature 37.0 C Heart Rate 62 81 84 Respiratory 18 16 18 Rate Blood Pressure 143/89 H 141/89 H 140/97 H O2 Saturation 100 100 99 05/05/20 05/05/20 05/05/20 14:00 14:30 15:00 Temperature 36.5 C Heart Rate 60 73 68 Respiratory 12 16 18 Rate Blood Pressure 125/54 L 140/81 H 140/91 H O2 Saturation 100 99 100 Oxygen O2 Source Room air - EKG (time done) 1258 Rate: Rate (enter#) (60) Rhythm: Paced - Labs Labs: Laboratory Tests 05/05/20 05/05/20 05/05/20 13:08 13:08 13:08 WBC 9.9 RBC 4.17 L Hgb 14.0 Hct 43.9 MCV 105.3 H MCH 33.6 H MCHC 31.9 L RDW 14.8 Plt Count 171 MPV 10.0 Neut # (Auto) 7.6 H Lymph # (Auto) 1.5 [place] # (Auto) 0.7 Eos # (Auto) 0.1 Baso # (Auto) 0.0 Absolute Nucleated RBC 0.00 Nucleated RBC % 0.0 PT 20.6 H INR 1.9 H Sodium 142 Potassium 3.5 Chloride 104 Carbon Dioxide 26 Anion Gap 12.0 BUN 61 H Creatinine 2.5 H Estimated GFR (MDRD) 25 L Glucose 107 H Calcium 9.0 Total Bilirubin 1.5 H AST 31 ALT 36 Alkaline Phosphatase 140 H Total Protein 7.0 Albumin 4.2 Globulin 2.8 Albumin/Globulin Ratio 1.5 Lipase 38 - Rads (name of study) CT of the head without contrast and carotid Dopplers Radiology: EMP read contemporaneously (Chronic atrophy etc. in the head, no evidence of carotid occlusion or significant stenosis) PD MEDICAL DECISION MAKING - ED course ED course: 89-year-old gentleman in palliative care for dementia with chronic renal insufficiency had a TIA today. Wanted a fairly conservative course of action given his underlying goals of care. It was actually a question as to whether or not she wanted his carotids evaluated because she said even if they were stenosed, she would not pursue operative intervention, But she did want that data for prognostic information. His INR was 1.9, this is likely the culprit and he was given a shot of Lovenox pending a higher dose of warfarin tonight. Departure - Departure Disposition: 01 Home, Self Care Clinical Impression: TIA (transient ischemic attack), Subtherapeutic anticoagulation Atrial fibrillation Qualifiers: Atrial fibrillation type: longstanding persistent Qualified Code(s): I48.11 - Longstanding persistent atrial fibrillation Condition: Good Record reviewed to determine appropriate education?: Yes Instructions: ED Transient Ischemic Attack Prescriptions: Whole Blood Protime 1 unit TD ONCE #1 Comments: You were seen today for TIA. CAT scan of your head was normal and there is no evidence of a blocked carotid artery. Your INR was a little low at 1.9, for this we gave you a shot of Lovenox which is a blood thinner, and I would recommend taking an extra dose of warfarin, 4 mg tonight and then going back to your usual 2 mg dose. Sometime around Friday or Friday please present to the lab here with the order to have your INR checked. And follow-up with Dr. Martinez next week as scheduled. Return for new or worsening symptoms. Discharge Date/Time: 05/05/20 15:09
[2020-05-05 13:17] LABS: BASOPHILS % (AUTO) 0.4 %; EOSINOPHILS # (AUTO) 0.1 10^3/uL (0.0-0.7); EOSINOPHILS % (AUTO) 0.7 %; LYMPHOCYTES # (AUTO) 1.5 10^3/uL (1.5-3.5); MEAN CORPUSCULAR HEMOGLOBIN 33.6 pg (27.0-31.0); MEAN CORPUSCULAR HGB CONC 31.9 g/dL (32.0-36.0); MEAN CORPUSCULAR VOLUME 105.3 fL (80.0-94.0); MONOCYTES # (AUTO) 0.7 10^3/uL (0.0-1.0); NEUTROPHILS # (AUTO) 7.6 10^3/uL (1.5-6.6); NEUTROPHILS % (AUTO) 76.4 %; PLT - PLATELET COUNT 171 10^3/uL (130-450); RED BLOOD COUNT 4.17 10^6/uL (4.70-6.10); RED CELL DISTRIBUTION WIDTH 14.8 % (12.0-15.0); WHITE BLOOD COUNT 9.9 x10^3/uL (4.8-10.8)
[2020-05-05 13:24] LABS: INR 1.9 (0.8-1.2); PT - PROTHROMBIN TIME 20.6 secs (9.9-12.6)
[2020-05-05 13:36] LABS: ALBUMIN 4.2 g/dL (3.2-5.5); ALBUMIN/GLOBULIN RATIO 1.5 (1.0-2.2); BILIRUBIN,TOTAL 1.5 mg/dL (0.2-1.0); CREATININE 2.5 mg/dL (0.6-1.2)
--- NOTE | 2020-05-05 14:11 | CT Report ---
PROCEDURE: HEAD WO INDICATIONS: Tia TECHNIQUE: Noncontrast 4.5 mm thick angled axial sections acquired from the foramen magnum to the vertex. For r adiation dose reduction, the following was used: automated exposure control, adjustment of mA and/or kV according to patient size. COMPARISON: 02/15/2019. One FINDINGS: Image quality: Excellent. CSF spaces: Basal cisterns are patent. No extra-axial fluid collections. There is mild cerebral vol ume loss with prominence of the ventricles and sulci. Brain: No intracranial hemorrhage, mass, or mass effect. There are periventricular white matter hypo densities consistent with mild chronic small vessel ischemic changes. Roe-white matter interface raheem ears preserved overall left. Skull and face: Calvarium and visualized facial bones are intact, without suspicious lesions. Sinuses: Visualized sinuses and mastoids are clear. IMPRESSION: 1. No acute intracranial abnormality. 2. Mild chronic white matter small vessel ischemic changes and cerebral volume loss. Reviewed by: Donta Quezada MD on 05/05/2020 2:09 PM PDT Approved by: Donta Quezada MD on 05/05/2020 2:09 PM PDT Station ID: [id number]
--- NOTE | 2020-05-05 14:42 | Ultrasound Report ---
PROCEDURE: Carotid Doppler Complete INDICATIONS: tia TECHNIQUE: Color and pulse Doppler interrogation was performed of both carotid systems, with image documentation and velocity measurements. COMPARISON: None. FINDINGS: Right side: Brachial blood pressure: Not measured Common carotid artery peak systolic velocity: 58 cm/sec. Internal carotid artery peak systolic velocity: 46 cm/sec. Internal carotid artery end diastolic velocity: 18 cm/sec. External carotid artery peak systolic velocity: 52 cm/sec. ICA/CCA peak systolic ratio: 0.7 . Roe scale imaging description: Calcified plaque Percent internal carotid artery stenosis: Less than 50% . Vertebral artery: Flow direction is antegrade. Left side: Brachial blood pressure: Not measured Common carotid artery peak systolic velocity: 56 cm/sec. Internal carotid artery peak systolic velocity: 34 cm/sec. Internal carotid artery end diastolic velocity: 15 cm/sec. External carotid artery peak systolic velocity: 69 cm/sec. ICA/CCA peak systolic ratio: 0.7 . Roe scale imaging description: Calcified plaque Percent internal carotid artery stenosis: Less than 50% . Vertebral artery: Flow direction is antegrade. IMPRESSION: Less than 50% stenosis of the origins of the right and left internal carotid arteries. The estimate of stenosis included in the report of the imaging study was calculated using the NASCET method Reviewed by: Apple Olivo MD, PhD on 05/05/2020 2:41 PM PDT Approved by: Apple Olivo MD, PhD on 05/05/2020 2:41 PM PDT Station ID: [id number]
[2020-05-05] MEDS ORDERED: ENOXAPARIN 80 MG/0.8 ML SYRINGE SUBQ STA (14:51)
[2020-05-05 15:09] VITALS: BP 140/91
== END 2020-05-05 15:09 | disposition home or self-care (01) ==
LOC: EDUNIT# → ED 12:44
DX: G45.9 Transient cerebral ischemic attack, unspecified (principal); I48.11 Longstanding persistent atrial fibrillation; Z79.01 Long term (current) use of anticoagulants; R79.1 Abnormal coagulation profile; Z95.0 Presence of cardiac pacemaker; I12.9 Hypertensive chronic kidney disease with stage 1 through stage 4 chronic kidney disease, or unspecified chronic kidney disease; N18.9 Chronic kidney disease, unspecified; F03.90 Unspecified dementia, unspecified severity, without behavioral disturbance, psychotic disturbance, mood disturbance, and anxiety; Z94.7 Corneal transplant status
CPT/HCPCS: 36415; 70450; 80053; 83690; 85025; 85610; 93005; 93880; 96372; 99281; 99284; J1650

== ENCOUNTER 2020-05-09 12:31 | Outpatient (CLI) | payer MEDICARE | END 2020-05-09 12:32 | disposition home or self-care (01) | LOC: LAB.S 12:31 | PROVIDERS: ATTEND Family Medicine | DX: I48.11 Longstanding persistent atrial fibrillation (principal) | CPT/HCPCS: 85610 ==

== ENCOUNTER 2020-05-31 16:19 | Outpatient (CLI) | payer MEDICARE ==
--- NOTE | 2020-06-01 09:18 | XRAY Report ---
PROCEDURE: Chest 2 View X-Ray INDICATIONS: PRESENCE OF CARDIAC PACEMAKER TECHNIQUE: 2 view(s) of the chest. COMPARISON: None. FINDINGS: Surgical changes and devices: Left chest wall 3-lead cardiac pacing device, new/changed from the 2-le ad cardiac pacing device seen on the 04/21/2019 exam. Lungs and pleura: No pleural effusions or pneumothorax. Lungs are clear. Mediastinum: Mediastinal contours are normal. Heart size is normal. Bones and chest wall: No suspicious bony abnormalities. Soft tissues appear unremarkable. IMPRESSION: No acute cardiopulmonary process demonstrated radiographically. Reviewed by: Gelacio Jenkins MD on 06/01/2020 9:16 AM PDT Approved by: Gelacio Jenkins MD on 06/01/2020 9:16 AM PDT Station ID: [id number]
== END 2020-05-31 16:20 | disposition home or self-care (01) ==
LOC: DI 16:19
PROVIDERS: ATTEND Student in an Organized Health Care Education/Training Program
DX: I49.5 Sick sinus syndrome (principal); Z95.0 Presence of cardiac pacemaker
CPT/HCPCS: 71046

== ENCOUNTER 2020-07-20 10:00 | Outpatient (CLI) | payer MEDICARE ==
--- NOTE | 2020-07-20 17:52 | CONSULTATION NOTE ---
Palliative Care Follow Up - Referral Referring Provider: Dr. 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 He recently had this replaced, with some improvement in his baseline dyspnea. He has had a decline in his ejection fraction to 45 to 50%, has been on optimal medical therapy, and then more dependent on his pacing component. They did upgrade his biventricular device to a new compatible generator with a third lead. And has done fairly well. Though today he presents with a 5 pound weight gain, lower extremity edema, though no crackles over about a week. He is on baseline torsemide 20 mg daily, to use increased dosing for as needed edema. Patient unfortunately presented in April with a TIA to ED, and most likely has had subsequently a couple more episodes. Patient has had ongoing cognitive decline over several months to years. But more acutely over the last few months. 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 He can engage in conversation when spoken to, is not oriented to time, date, season, he is oriented to place though is unable to recall his address. He scores a 0 on the mini cog, which is a screening for dementia patients. He is demonstrating increased behaviors with increased anxiety, very dependent on his , increased fearfulness of bathing, intermittent incontinence, needing more cueing for most ADLs and activities. He is daily able to get up in his morning and make his breakfast, but this is a fairly regular routine, but no longer able to take medication without supervision. He is resistant to bathing, this is a new behavior for him to. I would put him at a Moderate stage dementia or FAST 6. Goals remain to keep at home as long as possible, if he needed more physical care, or became more difficult with behaviors, would need to look at the threshold for placement per . Patient has multiple specialist, though continue to focus on a palliative care approach. Goal is to keep patient is independent and focus on quality of life issues. Patient does have a POLST with DO NOT RESUSCITATE/selective treatment, weighing benefits and burdens of treatment decisions as they come along. Patient's past medical history includes combined systolic diastolic congestive heart failure, hypertension, high cholesterol, atrial fib, sleep apnea with CPAP use, CKD stage IV, atrial fib, chronic vision loss, glaucoma, macular degeneration, osteoarthritis, rosacea, history of gout. Social History - Living Situation Living arrangement: At home Living Situation: With spouse/s.o. Support System: Patient lives in a viola home with his Anneliese. She is his primary caregiver. Continues to struggle with his ongoing decline, she does try to keep him engaged despite the COVID-19 pandemic with activity. 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 She is concerned about his increasing care needs, and would like to keep him independent as long as possible. Medications/Allergies - Medications Home Medications: Ambulatory Orders Medication Instructions Recorded Confirmed Atorvastatin Calcium [Lipitor] 80 mg PO QPM 02/06/17 07/21/20 Losartan [Cozaar] 12.5 mg PO ACHS 02/06/17 07/21/20 Acyclovir 400 mg ORAL BID 02/15/19 07/21/20 Cyclosporine [Restasis] 1 drops EACHEYE BID 02/15/19 07/21/20 Metronidazole [Metrogel] 1 applic TOP DAILY PRN 02/15/19 07/21/20 Torsemide 20 mg PO DAILY MDD as needed 02/15/19 07/21/20 dosing 20 mg wt gain Warfarin Sodium 2 mg DAILY MDD managed by 02/15/19 07/21/20 cardiology Dorzolamide 2% Ophth Drops 1 drops EACHEYE BID 05/18/19 07/21/20 [Trusopt 2% Ophth Drops] Multivitamin [Multivitamins] 1 tab PO DAILY 05/18/19 07/21/20 Cyanocobalamin (Vitamin B-12) 1,000 mg PO DAILY 07/14/19 07/21/20 [Vitamin B-12] Folic Acid 800 mcg PO DAILY 07/14/19 07/21/20 Levothyroxine [Synthroid] 100 mcg PO DAILY 07/14/19 07/21/20 Febuxostat [Uloric] 40 mg PO DAILY 12/16/19 07/21/20 Metoprolol Succinate 100 mg PO DAILY 05/02/20 07/21/20 Aspirin 81 mg PO DAILY 07/21/20 07/21/20 - Allergies Allergies/Adverse Reactions: Allergies Allergy/AdvReac Type Severity Reaction Status Date / Time ARCELIA Inhibitors Allergy Unknown Verified 05/08/20 07:40 amiodarone Allergy Unknown Verified 05/08/20 07:40 Calcium Channel Blocking Allergy Unknown Verified 05/08/20 07:40 Agent Dilt cephalexin Allergy Unknown Verified 05/08/20 07:40 simvastatin [From Zocor] Allergy Cramps Verified 05/05/20 12:52 Cnxzync-Aqb-Ine Reductase AdvReac Unknown Verified 05/05/20 12:52 Inhibitor Review of Systems - Constitutional Constitutional: reports: Fatigue (sleeping more), Weight gain (5 pounds over last week). denies: Fever, Chills - Eyes Eyes: reports: Vision loss, Corrective lenses, Other (macular degeneration) - Ears, Nose & Throat Ears, Nose & Throat: reports: Hearing loss, Hearing aids - Cardiovascular Cardiovascular: reports: Edema (worsened over last couple of days), Decr. exercise tolerance - Respiratory Respiratory: reports: SOB with exertion (improved with pacemaker replacement). denies: Cough, SOB at rest - Gastrointestinal Gastrointestinal: reports: Good appetite. denies: Diarrhea (patient with regular loose stools; no change from baseline), Nausea, Reflux/heartburn - Genitourinary Genitourinary: reports: Incontinence (new intermittent symtom) - Musculoskeletal Musculoskeletal: reports: Stiffness, Muscle weakness, Gout (currently controlled), Assistive devices (uses walking sticks), Other (functional decline/balance issues worsening; interested in PT) - Integumentary Integumentary: reports: Dryness - Neurological Neurological: reports: General weakness, Memory problems (worsening; patient with several TIAs this summer adding to decline), Abnormal gait, Incoordination. denies: Dizziness - Psychiatric Psychiatric: reports: Other (up at night wandering/days/night cycle off). 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 negative: Lymphadenopathy (R), Lymphadenopathy (L) Cardiovascular: positive: Regular rate & rhythm Respiratory: positive: No respiratory distress, Breath sounds nml Abdomen: positive: Non-tender, Soft, Nml bowel sounds Skin: positive: Dryness Extremities: positive: Pedal edema (left greater than right; 1+) Neurologic/Psychiatric: positive: Mood/affect nml, Disoriented to time, Weakness, Flat affect, Other (only engages in conversation when asked questions) Palliative Care - POLST Patient has POLST: Yes POLST Status: DNR, Selective Treatment Pain: No pain, Comment (patient has not had recurrent foot pain; but has been less active; gout seems controlled) Tiredness/Fatigue: Moderate (4-6) Drowsiness/Sedation: Moderate (4-6) Nausea: None Anorexia: None Dyspnea: Mild (1-3) (improved) Depression: None Anxiety: Mild (1-3) Feelings of wellbeing/Perceived Quality of Life: Good, Acceptable, Worsening Sleep: Variable sleep pattern Constipation: No Impression and Recommendations - Palliative Care Impression: This is an 89-year-old gentleman with multiple comorbidities, presenting with worsening moderate dementia, functional decline, mild exacerbation of his CHF, in the setting of increased care needs. Palliative care continue provide support with a focus on quality of life and anticipatory guidance. Recommendations/Counseling Done: 1. Dementia. Patient presents with vascular dementia, recently exacerbated this summer with TIAs. Patient does not present with decision-making capacity, demonstrates increased dependence, and and worsening short-term memory deficits. Counseling provided regarding disease and trajectory, initiate conversation regarding planning for the future, will provide resources from [employer]. requiring letter support to be able to continue to manage affairs as his D POA. Patient is demonstrating some increased perseverative behaviors, she does do a nice job of redirecting. He is also demonstrating resistance to bathing, we did discuss in the context of this of using other means for personal hygiene. 2. Congestive Heart Failure. acute on chronic. Patient does present with increased edema over the last week, this is mild increase. Patient has good appetite. Does have some increased swelling. We will go ahead and trial torsemide 20 mg extra every other day for 3 doses, and watch weight. Patient may need an adjustment, or have just gained weight, need to establish new dry weight. He is due to see cardiology in the next couple weeks. 3. Generalized weakness. Patient is having increased functional decline, has increased balance issues, most likely related to peripheral neuropathy, generalized weakness, and increase sedentary lifestyle. They are interested in managing his independence for as long as possible, counseling provided regarding recommendation for follow-up with physical therapy. 4. Advanced care planning. would very much like to keep him home as long as possible, looking at ways to support his overall quality of life and quantity of life in the context of current situation. Patient does have CKD stage IV, would not pursue dialysis. Does have POLST with DNR and selective treatments. She is doing explore outside long-term planning issues, will have medical palliative care social professionals follow-up in the next few weeks. Time Spent: 60 minutes with greater than 50% of this done in counseling regarding goals of care, management of worsening dementia symptoms, anticipatory guidance, and coordination of care.
== END 2020-07-20 10:01 | disposition home or self-care (01) ==
LOC: PC 10:00
PROVIDERS: ATTEND Nurse Practitioner Adult Health
DX: Z51.5 Encounter for palliative care (principal); F03.91 Unspecified dementia, unspecified severity, with behavioral disturbance; Z91.83 Wandering in diseases classified elsewhere; R53.1 Weakness; I13.0 Hypertensive heart and chronic kidney disease with heart failure and stage 1 through stage 4 chronic kidney disease, or unspecified chronic kidney disease; I50.43 Acute on chronic combined systolic (congestive) and diastolic (congestive) heart failure; N18.4 Chronic kidney disease, stage 4 (severe); I48.91 Unspecified atrial fibrillation; R32 Unspecified urinary incontinence; R26.9 Unspecified abnormalities of gait and mobility; Z79.899 Other long term (current) drug therapy; Z79.01 Long term (current) use of anticoagulants; Z79.82 Long term (current) use of aspirin; Z95.0 Presence of cardiac pacemaker; Z66 Do not resuscitate
CPT/HCPCS: 99350

== ENCOUNTER 2020-07-26 09:56 | Outpatient (CLI) | payer MEDICARE ==
[2020-07-26 11:07] VITALS: BP 120/80
--- NOTE | 2020-07-26 11:07 | SLEEP CARE CONSULTATION ---
Information from patient questionnaire entered by Lashonda Kaye. I have reviewed and concur with the information entered by Lashonda Kaye. This document represents the service I personally performed and the decisions made by me, Ileana De La Rosa, RN, MSN, [employer]. History of Present Illness Service Date and Time: 07/26/2020 0956 Previous diagnosis: Very Severe, Obstructive Sleep Apnea-Hypopnea Syndrome AHI: 70.3 (in 2018) Reason for follow up: other (9 month ) Accompanied by: Spouse Equipment type: CPAP Equipment obtained from: [place] Mask style: Full face Backup mask available: Yes (old mask ) Last cushion change: 1 month ago Prior sleep studies: Yes Year and Where: 2017 - [facility], [facility] - [facility] Type of Sleep Study: Polysomnography Sleep Study - Results Prior sleep studies: Yes CPAP Compliance Data - Data Reviewed with Patient Average duration of nightly device use: 8.9 Compliance rate %: 99.4 (180 days) Current pressure setting (cmH2O): 16 Humidity settin Heated hose settin Average residual AHI: 12.6 Central apnea: 8.2 Obstructive apnea: 2.0 Hypopnea: 2.3 Average large leak: 8 min 29 sec Subjective Patient concerns: reports: nasal congestion (during the day only. ). denies: aerophagia, mask discomfort, air blowing in eyes, mask leak noise, condensation in mask/hose, dry mouth, nose, throat, epistaxis, other Observed to snore while using device: No Current pressure setting perceived as: comfortable On therapy, patient: reports: sleeping better, awakening more refreshed, being more awake and alert during the day, more rested overall. denies: drowsiness while driving (does not drive) Initial [place] Sleepiness Scale score: 4 (in 2018) Current [place] Sleepiness Scale score: 8 Review of Systems Review of systems same as previous: No (ER for fluid retention April 12, Pacemaker replaced and extra lead, ER /TIAs) Physical Exam Blood Pressure: 120/80 Cuff size: long Heart Rate: 58 (apical regular ) O2 Saturation: 90 (fingers cold) Height: 5 ft 4.5 in Weight: 188 lb 9.6 oz Body Mass Index: 31.8 BMI Classification: Obese Impression and Plan 1. Obstructive Sleep Apnea-Hypopnea Syndrome, very severe, with good treatment compliance and mild elevation of residual AHI. On CPAP therapy, the patient has better sleep quality and is more rested overall. He and spouse are pleased with benefit obtained from CPAP use. Since patient has lost 20 pounds since last seen and predominant apneas are centrals, I will reduce his CPAP pressure range to 14-15cm20. Patient to call if pressure uncomfortable. So far lowest AHI is 12 with past pressure changes. Goals of apnea control again reviewed for better control of AHI, symptoms and comfort. He could not tolerate higher pressure range of [id number] ordered at last visit so reduced to [id number]. His spouse monitors his daily residual AHI and is aware to contact me if it is higher than usual. Currently his chronic nasal congestion is better at night. Rationale explained how his humidity and air filtering could be reducing nasal congestion. If nasal congestion becomes worse, he can adjust his humidity higher to see if better benefit or lower heated hose. In addition, a sample of saline nasal spray given to use prior to CPAP use to clear nasal passages and facilitate nasal breathing as well as wash off allergens. Patient spouse brought in new hose as the mask piece was stuck in hose and unable to use. Patient now using old hose. They had called their DME but unable to get help needed. I showed patient and spouse and how to remove mask piece. Patient and spouse are both hard of hearing so extra time taken to communicate in this visit with masks in place for Covid 19 precautions. Patient's apnea severity and rationale for treatment to reduce apnea, improve sleep quality and reduce cardiovascular and cerebrovascular events was reviewed. I also reviewed the benefit of consistent device use of CPAP for arrhythmia . * * Changeauto CPAP pressure to 14 - 15 cmH2O * Implement methods to reduce nasal congestion as directed. * Notify me if snoring with mask or feeling that the pressure is too much or too little * Call this office if any problems using CPAP * Return for follow up in 1-2 months , or sooner if concerns arise Visit Type: In Office Time Spent with Patient (minutes): 34 - patient and spouse hard of hearing Provider Statement: I spent 100% of the Face to Face Visit with the patient with greater than 50% spent counseling the patient and coordination of care.
== END 2020-07-26 09:57 | disposition home or self-care (01) ==
LOC: SC 09:56
PROVIDERS: ATTEND Nurse Practitioner Family
DX: G47.33 Obstructive sleep apnea (adult) (pediatric) (principal); E66.9 Obesity, unspecified; Z68.31 Body mass index [BMI] 31.0-31.9, adult
CPT/HCPCS: 99214; G0463; 99212

== ENCOUNTER 2020-09-28 13:53 | Outpatient (CLI) | payer MEDICARE ==
--- NOTE | 2020-09-28 14:47 | SLEEP CARE CONSULTATION ---
Information from patient questionnaire entered by Scott Grant. I have reviewed and concur with the information entered by Scott Grant. This document represents the service I personally performed and the decisions made by me, Vero Solomon ARNP. History of Present Illness Service Date and Time: 09/28/2020 1353 Previous diagnosis: Very Severe, Obstructive Sleep Apnea-Hypopnea Syndrome AHI: 70.3 (in 2018) Reason for follow up: other (2-month followup pressure change) Equipment type: CPAP Equipment obtained from: [place] Mask style: Full face Backup mask available: Yes (old mask) Prior sleep studies: Yes Year and Where: 2017 - [facility], [facility] [place] [facility] additional information: BABAR HARRISON was diagnosed to have very severe, AHI 70.3, obstructive sleep apnea-hypopnea syndrome and returned today with spouse for CPAP therapy two month pressure change follow-up. Sleep Study - Results Prior sleep studies: Yes Year and Where: 2017 - [facility], [address] [place] [address] CPAP Compliance Data - Data Reviewed with Patient Average duration of nightly device use: 9 h 16 min Compliance rate %: 100 Current pressure setting (cmH2O): 14-15 Humidity settin Heated hose settin Average residual AHI: 18.1 Central apnea: 9.6 Obstructive apnea: 3.2 Average large leak: 39 min 38 sec Subjective Patient concerns: reports: mask leak noise (with new headgear), nasal congestion (has severe allergies), dry mouth, nose, throat (dry nose), other (new headgear not allowing the mask to fit right, tightening makes it worse). denies: aerophagia, mask discomfort, air blowing in eyes, condensation in mask/hose, epistaxis Observed to snore while using device: No Current pressure setting perceived as: comfortable On therapy, patient: reports: sleeping better, awakening more refreshed, being more awake and alert during the day, more rested overall Initial [place] Sleepiness Scale score: 4 (in 2018) Current [place] Sleepiness Scale score: 6 Allergies and Home Medications Drug allergies reviewed: Yes (josue inhibitors, amiodarone, etc) Home medication list reviewed: Yes (no changes) Review of Systems Review of systems same as previous: No (replaced pacemaker) Physical Exam Heart Rate: 62 O2 Saturation: 98 Height: 5 ft 4.5 in Weight: 185 lb Body Mass Index: 31.2 BMI Classification: Obese Impression and Plan 1. Obstructive Sleep Apnea-Hypopnea Syndrome, very severe, with excellent treatment compliance and poor apnea control with elevated residual AHI. On CPAP therapy, the patient has better sleep quality and is more rested overall. His states he got a new set of headgear that is not working out. He is unable to get a good fit/seal on the full face mask with the new headgear. She put the old headgear back on and it seal up right and his apnea numbers went down that she has been monitoring when she put the old headgear back on. His residual AHI is 18.1 with more central apnea at 9.6. I will decrease his pressure to 13-14 cm H2O to see if this will improve his residual AHI. I encouraged them to try to put the new headgear and mask on when he is laying down to see if this will help with getting better seal/adjustment to his head/face. They voiced understanding and agreement with plan. They are to follow up in 1-2 months and his was instructed to call the DME supplier if there are further problems with the headgear or us if unable to resolve them. Patient's apnea severity and rationale for treatment to reduce apnea, improve sleep quality and reduce cardiovascular and cerebrovascular events was reviewed. I also reviewed the benefit of consistent device use of CPAP for arrhythmia. * Change autoCPAP pressure to 13-14 cmH2O * Notify me if snoring with mask or feeling that the pressure is too much or too little * Attempt to lose weight * Call this office if any problems using CPAP * Return for follow up in 1-2 months; , or sooner if concerns arise Counseling Topics: Spare mask Visit Type: In Office Time Spent with Patient (minutes): 23 Provider Statement: I spent 100% of the Face to Face Visit with the patient with greater than 50% spent counseling the patient and coordination of care.
== END 2020-09-28 13:54 | disposition home or self-care (01) ==
LOC: SC 13:53
PROVIDERS: ATTEND Nurse Practitioner Family
DX: G47.33 Obstructive sleep apnea (adult) (pediatric) (principal); E66.9 Obesity, unspecified; Z68.31 Body mass index [BMI] 31.0-31.9, adult
CPT/HCPCS: 99213; G0463; 99212

== ENCOUNTER 2020-10-13 08:00 | Outpatient (CLI) | payer MEDICARE | END 2020-10-13 08:01 | disposition home or self-care (01) | LOC: LAB.R 08:00 | PROVIDERS: ATTEND Family Medicine | DX: R05 Cough (principal); Z20.828 Contact with and (suspected) exposure to other viral communicable diseases ==

== ENCOUNTER 2020-10-13 15:58 | Outpatient (CLI) | payer MEDICARE ==
--- NOTE | 2020-10-13 16:12 | XRAY Report ---
PROCEDURE: Chest 2 View X-Ray INDICATIONS: COUGH TECHNIQUE: 2 view(s) of the chest. COMPARISON: None. FINDINGS: Surgical changes and devices: Left chest wall pacer appears well-positioned.. Lungs and pleura: No pleural effusions or pneumothorax. Lungs are clear. Mediastinum: Mediastinal contours are normal. Heart size is normal. Bones and chest wall: No suspicious bony abnormalities. Soft tissues appear unremarkable. IMPRESSION: No acute cardiopulmonary abnormality Reviewed by: Mayo Winston on 10/13/2020 4:11 PM [facility] Approved by: Mayo Winston on 10/13/2020 4:11 PM PST Station ID: [id number]
== END 2020-10-13 23:59 | disposition home or self-care (01) ==
LOC: DI.N 15:58
PROVIDERS: ATTEND Family Medicine
DX: R05 Cough (principal)

== ENCOUNTER 2020-10-23 08:00 | Outpatient (CLI) | payer MEDICARE ==
[2020-10-23 19:13] LABS: BUN - BLOOD UREA NITROGEN 71 mg/dL (6-20); CALCIUM 8.8 mg/dL (8.5-10.3); CARBON DIOXIDE - CO2 26 mmol/L (21-32); CHLORIDE 104 mmol/L (101-111); CHOL/HDL RATIO 4.5 (<5.0); CHOLESTEROL 223 mg/dL; CREATININE 3.1 mg/dL (0.6-1.2); GLUCOSE 118 mg/dL (70-100); HDL CHOLESTEROL 50 mg/dL; LDL CHOLESTEROL,CALCULATED 136 mg/dL; LDL/HDL RATIO 2.7 (<3.6); SODIUM 140 mmol/L (135-145); VLDL CHOLESTEROL 37 mg/dL
== END 2020-10-23 08:01 | disposition home or self-care (01) ==
LOC: LAB.WCP 08:00
PROVIDERS: ATTEND Internal Medicine
DX: E03.9 Hypothyroidism, unspecified (principal); E78.5 Hyperlipidemia, unspecified; I42.9 Cardiomyopathy, unspecified; Z12.5 Encounter for screening for malignant neoplasm of prostate
CPT/HCPCS: 36415; 80048; 80061; 84443; G0103; 83721; 84153

== ENCOUNTER 2020-11-01 15:58 | Outpatient (CLI) | payer MEDICARE ==
[2020-11-01 16:35] LABS: CALCIUM 9.1 mg/dL (8.5-10.3); CREATININE 3.4 mg/dL (0.6-1.2)
--- NOTE | 2020-11-01 17:49 | CONSULTATION NOTE ---
Palliative Care Follow Up - Referral Referring Provider: Dr. 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 He had it replaced with a 3-lead pacemaker with improvement of his severe shortness of breath and activity intolerance, in March of this year. He has longstanding CHF, and has been on fluctuating torsemide, this is been complicated and managing as he does have CKD D stage IV, and worsening GFR. He has had a series of unfortunate events this last few weeks, including a diagnosis of left lower lobe pneumonia on 10/13, with a round of azithromycin. He has had a steady weight gain, though does not present today with any signs or symptoms of fluid overload, he has 1+ pitting edema, lungs are clear, does have some residual cough but this is mostly upper airway, and clears. Patient as a result of his activity tolerance and pneumonia, has been much more sedentary, sleeping more, and not be able to participate with walking or physical therapy. Patient has had steady increase in weight, and today weighs 191.0. has been instructed to titrate torsemide accordingly, unfortunately they have been using his base weight of 188, so he has been consistently getting 40 mg of torsemide, with a couple days of 80, and 1 day of 60 mg. is concerned regarding "bigger picture". I suspect with patient's increase caloric intake, he has been eating more sweets, does like to eat, and has been less active has had some actual weight gain versus fluid retention. Patient is starting to feel somewhat better, though is having more bad days than good days. When trying to get patient to engage and discuss what that is, he reports he just feels "blah". Patient's dementia continues to progress, with increased sleeping, he has given up reading and crossword's, does watch some DVDs, but is challenged both with his hearing and eyesight. He has needed more cueing for dressing, continues to have intermittent toileting issues and incontinence. Has been "soaked" without any awareness of his incontinence. He is still ambulatory, and tries to keep in as independent as possible. Patient does like to eat, his appetite's been good, he denies being anxious or worried, but has been doing less and less. Palliative care has been involved to focus on quality of life issues, the plan is not to pursue dialysis, though he is continuing to push against his CKD stage IV, concern with persistent torsemide this last month, may have worsened his kidney function, they are to get labs done today or tomorrow. Patient had been actually doing fairly well prior to this episode, had been increasing activity tolerance with walks, and really enjoying his physical therapy at [facility]. Past Medical History: Combined systolic diastolic congestive heart failure, hypertension, high cholesterol, atrial fib, sleep apnea with CPAP use, CKD stage IV, atrial fib on anticoag, chronic vision loss, glaucoma, macular degeneration, osteoarthritis, rosacea, history of gout Social History - Living Situation Living arrangement: At home Living Situation: With spouse/s.o. Support System: Patient lives in a viola home with his Anneliese. She is his primary caregiver, she does continue to struggle with his ongoing decline trying to keep him engaged despite COVID-19 pandemic with various activities. 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 He and Hugo have been for 41 years and have a blended family. She is concerned about his increasing care needs, but would like to keep him at home and is independent as long as possible. Medications/Allergies - Medications Home Medications: Ambulatory Orders Medication Instructions Recorded Confirmed Atorvastatin Calcium [Lipitor] 80 mg PO QPM 02/06/17 11/01/20 Losartan [Cozaar] 12.5 mg PO ACHS 02/06/17 11/01/20 Acyclovir 400 mg ORAL BID 02/15/19 11/01/20 Cyclosporine [Restasis] 1 drops EACHEYE BID 02/15/19 11/01/20 Metronidazole [Metrogel] 1 applic TOP DAILY PRN 02/15/19 11/01/20 Torsemide 20 mg PO DAILY MDD as needed 02/15/19 11/01/20 dosing 20 mg wt gain Warfarin Sodium 2 mg DAILY MDD managed by 02/15/19 11/01/20 cardiology Dorzolamide 2% Ophth Drops 1 drops EACHEYE BID 05/18/19 11/01/20 [Trusopt 2% Ophth Drops] Multivitamin [Multivitamins] 1 tab PO DAILY 05/18/19 11/01/20 Cyanocobalamin (Vitamin B-12) 1,000 mg PO DAILY 07/14/19 11/01/20 [Vitamin B-12] Folic Acid 800 mcg PO DAILY 07/14/19 11/01/20 Levothyroxine [Synthroid] 100 mcg PO DAILY 07/14/19 11/01/20 Febuxostat [Uloric] 40 mg PO DAILY 12/16/19 11/01/20 Metoprolol Succinate 100 mg PO DAILY 05/02/20 11/01/20 Aspirin 81 mg PO DAILY 07/21/20 11/01/20 - Allergies Allergies/Adverse Reactions: Allergies Allergy/AdvReac Type Severity Reaction Status Date / Time ARCELIA Inhibitors Allergy Unknown Verified 05/08/20 07:40 amiodarone Allergy Unknown Verified 05/08/20 07:40 Calcium Channel Blocking Allergy Unknown Verified 05/08/20 07:40 Agent Dilt cephalexin Allergy Unknown Verified 05/08/20 07:40 simvastatin [From Zocor] Allergy Cramps Verified 05/05/20 12:52 Uzxvizk-Zdg-Lop Reductase AdvReac Unknown Verified 05/05/20 12:52 Inhibitor Review of Systems - Constitutional Constitutional: reports: Fatigue (Worsening), Weight gain (191). denies: Fever, Chills - Eyes Eyes: reports: Blurred vision, Vision loss, Corrective lenses - Ears, Nose & Throat Ears, Nose & Throat: reports: Hearing loss, Hearing aids - Cardiovascular Cardiovascular: reports: Edema, Exertional dyspnea, Decr. exercise tolerance - Respiratory Respiratory: reports: Cough (improving), SOB with exertion, Other (CPAP). denies: Wheezing, SOB at rest - Gastrointestinal Gastrointestinal: reports: Good appetite. denies: Diarrhea (decreased) - Genitourinary Genitourinary: reports: Frequency, Incontinence (intermittent) - Musculoskeletal Musculoskeletal: reports: Stiffness, Limited range of motion, Muscle weakness - Integumentary Integumentary: reports: Dryness - Neurological Neurological: reports: General weakness, Memory problems (declining) - Psychiatric Psychiatric: reports: Other (up at night). denies: Depression, Anxiety - Endocrine Endocrine: reports: Hypothyroidism - All Other Systems All Other Systems: reports: Other (limited by patient's memory) Physical Exam - Vital Signs Temperature: 97.2 C Pulse Rate: 60 Respiratory Rate: 16 O2 Saturation: 93 (ra @ rest) Blood Pressure: 100/68 - Physical Exam General Appearance: positive: No acute distress, Alert Eyes Bilateral: negative: Conjunctivae nml (slightly reddened left eye;) ENT: positive: No signs of dehydration Neck: positive: Trachea midline. negative: Lymphadenopathy (R), Lymphadenopathy (L) Cardiovascular: positive: Regular rate & rhythm Respiratory: positive: No respiratory distress, Breath sounds nml, Other (loose upper airway cough;) Abdomen: positive: Non-tender, Soft, Nml bowel sounds Skin: positive: Dryness Extremities: positive: Pedal edema (left greater than right; 1+) Neurologic/Psychiatric: positive: Mood/affect nml, Disoriented to time, Weakness, Other (only engages in conversation when asked questions; few word answers; but affect bright today) Palliative Care - POLST Patient has POLST: Yes POLST Status: DNR, Selective Treatment Pain: No pain Tiredness/Fatigue: Moderate (4-6) Drowsiness/Sedation: Moderate (4-6) (sleeps easily; spending more time napping last few weeks) Nausea: None Anorexia: None Dyspnea: Mild (1-3) Depression: Mild (1-3) Anxiety: None Feelings of wellbeing/Perceived Quality of Life: Fair, Acceptable, Comment (per 's perception) Sleep: Variable sleep pattern (gets up at night for bowl of cereal, some wandering;sleeps in chair at times;) Constipation: No Performance Status: Patient had been doing fairly well in physical therapy prior to his episode of pneumonia, they had been walking though paced, up to a mile a couple times a we ek. felt he was pretty engaged in the process, and helped both of them stay active. It is currently on hold, to resume 11/14. Patient can dress himself, but needs cueing, sometimes some assistance. - Palliative Care Discussion: Patient does present with ongoing functional and cognitive decline, though has had a little improvement over the last couple days.He does present with progressing symptoms of his dementia, as well as concern for worsening kidney status. is primary caregiver, does present with some caregiving fatigue. She is a good advocate and oversees his care, but with patient's multiple comorbidities and specialists and recent trip to urgent care, it does get confusing how best to support patient and managing medications. Goal remains to keep patient at home and independent as long as possible, at this point in time they are managing, it is more complex and the setting of the pandemic, he does have 3 sons and are aware of his decline, but though available for emergent support, have not been able to offer respite for Anneliese. Results - Lab Results Lab results reviewed: Yes Fish Bones: 11/01/20 16:16 Lab and Imaging Results: Lab Results x24hrs 11/01/20 Range/Units 16:16 Sodium 139 (135-145) mmol/L Potassium 3.6 (3.5-5.0) mmol/L Chloride 99 L (101-111) mmol/L Carbon Dioxide 26 (21-32) mmol/L Anion Gap 14.0 H (6-13) BUN 74 H (6-20) mg/dL Creatinine 3.4 H (0.6-1.2) mg/dL Estimated GFR (MDRD) 17 L (>89) Glucose 98 (70-100) mg/dL Calcium 9.1 (8.5-10.3) mg/dL Impression and Recommendations - Palliative Care Impression: This is a 89-year-old gentleman with multiple comorbidities, presenting with continued cognitive decline attributed to his vascular dementia, worsening CKD stage IV, attributed to increase torsemide use, and challenging balance for medications with underlying CHF. Patient also presents with increased weakness after diagnosis of pneumonia 10/13. Palliative care providing support regarding coordination of care, symptom management, and anticipatory guidance. Recommendations/Counseling Done: 1.Dementia. Patient does present with some behaviors indicative of progression of disease, with with increased incontinence, needing more cueing, assistance with dressing, he is still ambulatory. He does participate in answering questions, though unable to formulate sentences nor accurate. This is complicated by his difficulty with hearing as well. He is having some nighttime wandering, in the context he gets up and has cereal, does get disoriented to time. At this point in time his behaviors are manageable, and is accommodating these changes. 2. Congestive heart failure, acute on chronic. Patient has had progressive weight gain over the last month, though patient has been more sedentary, not participating in physical therapy secondary pneumonia, and has been eating more sweets. I suspect his baseline weight has increased, she has been instructed on dry weight of 188, so patient is consistently received 40 mg of torsemide, who presents with worsening GFR today. Cardiology has deferred to nephrology, patient does not show any other signs of fluid overload, has baseline lower extremity edema of 1+, he does have some abdominal fullness but this is his baseline so and able to differentiate related to his cardiac status, his lungs are clear. instructed at this point, to use 190 as a new base weight, with increased torsemide to 40 mg with weight gain of 2 pounds. Will reach out to Dr. Blake Barker, she also is wondering about the Urolic Acid. 3. CKD stage IV. Patient has had a decline in his kidney function, suspect related to his most recent increase in diuretics, as well as acute illness. 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 3. Generalized weakness. Patient had made some gains with physical therapy, does feel he is doing a little bit better with functional status. We did discuss resuming physical therapy, they do have a appointment 11/14. Counseling provided regarding progressive ambulation for short period of time, adding time/distance gradually, this will help patient be more successful transitioning back to physical therapy. Patient did benefit both physically and mentally, from the outings and engaging in activity. 4. Advanced care planning. Goal is to keep patient at home as long as possible, and looking at ways to support his overall quality of life and quantity of life in context of his current situation. Patient does have POLST with DNR and selective treatments. Continues to be challenged by his multiple medical appointments and specialist, trying to find a balance. Time Spent: Minutes with greater than 50% of this and in counseling regarding symptom management, coordination of care, and anticipatory guidance.
== END 2020-11-01 15:59 | disposition home or self-care (01) ==
LOC: LAB 15:58
PROVIDERS: ATTEND Nurse Practitioner Adult Health
DX: Z79.899 Other long term (current) drug therapy (principal)
CPT/HCPCS: 36415; 80048

== ENCOUNTER 2020-11-29 10:10 | Outpatient (CLI) | payer MEDICARE ==
--- NOTE | 2020-11-29 10:40 | SLEEP CARE CONSULTATION ---
Information from patient questionnaire entered by Lashonda Kaye. I have reviewed and concur with the information entered by Lashonda Kaye. This document represents the service I personally performed and the decisions made by , Vero Solomon ARNP. History of Present Illness Service Date and Time: 11/29/2020 1010 Previous diagnosis: Very Severe, Obstructive Sleep Apnea-Hypopnea Syndrome AHI: 70.3 (in 2018) Reason for follow up: other (2 month with pressure change) Equipment type: CPAP Equipment obtained from: [place] Mask style: Full face Mask brand: Adrianne Backup mask available: Yes Last cushion change: 2-3 months Prior sleep studies: Yes Year and Where: 2017 - [facility], 2003 - [facility] additional information: BABAR HARRISON was diagnosed to have very severe, AHI 70.3, obstructive sleep apnea-hypopnea syndrome and returned today with spouse for CPAP therapy 2 month pressure change follow-up. CPAP Compliance Data - Data Reviewed with Patient Average duration of nightly device use: 8 hr 7 min Compliance rate %: 98.3 (60 days) Current pressure setting (cmH2O): 13-14 Humidity settin Heated hose settin Average residual AHI: 21.4 Central apnea: 14.0 Obstructive apnea: 4.9 Average large leak: 50 sec Subjective Patient concerns: denies: aerophagia, mask discomfort, air blowing in eyes, mask leak noise, nasal congestion, dry mouth, nose, throat, epistaxis, other Observed to snore while using device: No Current pressure setting perceived as: comfortable On therapy, patient: reports: sleeping better, awakening more refreshed, being more awake and alert during the day, more rested overall Initial [place] Sleepiness Scale score: 4 (in 2018) Current [place] Sleepiness Scale score: 15 Allergies and Home Medications Drug allergies reviewed: Yes (josue inhibitors, amiodarone, etc) Home medication list reviewed: Yes (no changes) Review of Systems Review of systems same as previous: Yes (no changes) Physical Exam Heart Rate: 72 O2 Saturation: 90 Height: 5 ft 4.5 in Weight: 189 lb Body Mass Index: 31.9 BMI Classification: Obese Impression and Plan 1. Obstructive Sleep Apnea-Hypopnea Syndrome, very severe, with good treatment compliance and poor apnea control with elevated residual AHI. On CPAP therapy, the patient has better sleep quality and is more rested overall. I reviewed his chart and found that he had the best response to 16 cmH2O. The patients pressure will be changed to autoCPAP 16 cmH20 For elevation of residual AHI. Patient advised to contact me if pressure change is uncomfortable so that it can be adjusted. Goals for apnea control discussed. Discussed possible titration study to test for best pressure to control his apneas with patient and . Patient and declined an in lab titration study at this time. Patient's apnea severity and rationale for treatment to reduce apnea, improve sleep quality and reduce cardiovascular and cerebrovascular events was reviewed. I also reviewed the benefit of consistent device use of CPAP for his arrhythmia, cerebrovascular disease and hypertension. * Change autoCPAP pressure to 16 cmH2O * Notify me if snoring with mask or feeling that the pressure is too much or too little * Call this office if any problems using CPAP * Return for follow up in 2 months, or sooner if concerns arise Counseling Topics: Spare mask Visit Type: In Office Time Spent with Patient (minutes): 19 Provider Statement: I spent 100% of the Face to Face Visit with the patient with greater than 50% spent counseling the patient and coordination of care.
--- OUTSIDE RECORDS SUMMARY | 2020-12-06 00:39 | EXTERNAL MEDICAL SUMMARY RPT | Continuity of Care Document ---
:1930 Demographics Phone Unavailable Preferred Language East Timorese Marital Status Unknown Muslim Affiliation Unknown Race Unknown Ethnic Group Unknown Author Organization [facility] Address [address] [place] [address] Phone Care Team Providers Name Role Phone Unavailable Unavailable Martin Unavailable Unavailable Unavailable Unavailable Michelle Unavailable Unavailable Problems date description facility 2020-09-12 00:00:00 [facility] 2020-09-12 00:00:00 Details of drug misuse behavior [facility] 2020-09-12 00:00:00 Little interest or pleasure in [facility] doing things? [facility] 2020-09-12 00:00:00 Patient Health Questionnaire 2 [facility] item (PHQ2) total score [facility] 2020-09-12 00:00:00 Tobacco smoking status NHIS [facility] 2020-09-12 00:00:00 [facility] 2020-09-12 00:00:00 Tobacco use and exposure [facility] 2020-09-12 00:00:00 [facility] 2020-09-12 00:00:00 Feeling down, depressed, or [facility] hopeless? [facility] 2020-09-12 00:00:00 [facility] 2020-09-12 00:00:00 [facility]:00 COUGH [facility] 2020-10-13 00:00:00 [facility] 2020-[facility]-13 00:00:00 Pneumococcal pneumonia [facility] [Streptococcus pneumoniae [facility] pneumonia] 2020-10-13 00:00:00 Screening for malignant [facility] neoplasms of prostate [facility] 2020-10-13 00:00:00 [facility] [place] [facility] 2020-10-13 00:00:00 LIPIDS [facility] 2020-10-13 00:00:00 PSA, [facility]ING [facility] [place] [facility] 2020-10-13 00:00:00 COVID19 [facility] [place] [facility] 2020-10-13 00:00:00 Pneumonia, unspecified organism [facility] [place] [facility] 2020-10-13 00:00:00 [facility] [place] [facility] 2020-10-13 00:00:00 Encounter for screening for [facility]He [facility] Primary [facility] malignant neoplasm of prostate [facility] 2020-10-13 00:00:00 [facility] 2020-10-13 08:00 [facility] 2020-10-13 08:00 CONTACT W AND EXPOSURE TO OTH [facility] VIRAL COMMUNICABLE DISEASES 2020-10-13 15:58 [facility]GH [facility] 2020-10-23 00:00 HYPOTHYROIDISM, UNSPECIFIED [facility] 2020-10-23 00:00 HYPERLIPIDEMIA, UNSPECIFIED [facility] 2020-10-23 00:00 CARDIOMYOPATHY, UNSPECIFIED [facility] 2020-10-23 00:00 ENCOUNTER FOR SCREENING FOR [facility] MALIGNANT NEOPLASM OF PROSTATE 2020-10-23 00:00:00 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 [facility] 2020-10-23 00:00:00 Other primary [facility]opathies [facility] [place] [facility] 2020-10-23 00:00:00 Sinoatrial node dysfunction [facility] 2020-10-23 00:00:00 Chronic kidney disease, Stage IV [facility] (severe) [place] [facility] 2020-10-23 00:00:00 Basic Met[facility]BMP) [facility] 2020-10-23 00:00:00 Nonrheumatic mitral (valve) [facility] insufficiency [facility] 2020-10-23 00:00:00 Other cardiomyopathies [facility] 2020-10-23 00:00:00 [facility]ick [facility] 2020-10[facility] 00:00:00 Chronic kidney disease, stage 4 [facility] 2020-10-23 00:00:00 Alcohol [facility] 2020-10-23 00:00:00 [facility] 00:00:00 Tobacco use and exposure [facility] Primary Care [facility] 2020-10-23 00:00:00 [facility] 2020-10[facility]23 00:00:00 Details of drug misuse behavior [facility] 2020-10-23 00:00:00 Chronic kidney disease stage 4 [facility] 2020-10-23 00:00:00 Mitral valve regurgitation [facility] 2020-10-23 00:00:00 [facility] 2020-10-23 00:00:00 Tobacco smoking status NHIS [facility] 2020-10-23 00:00:00 [facility] 2020-10-23 00:00:00 [facility]00 [facility] 2020-10-23 08:00 HYPOTHYROIDISM, UNSPECIFIED [facility] 2020-10-23 08:00 HYPERLIPIDEMIA, UNSPECIFIED [facility] 2020-10-23 08:00 CARDIOMYOPATHY, UNSPECIFIED [facility] 2020-10-23 08:00 [facility]NCOUNTER [facility] MALIGNANT NEOPLASM OF PROSTATE 2020-10-24 00:00:00 Other postsurgical status [facility] 2020-10-24 00:00:00 Other specified postprocedural [facility] 2020-10-24 00:00:00 Laminectomy [facility] 2020-11-10 00:00:00 Alcohol intake [facility] 2020-11-10 00:00:00 Health-related behavior [facility] 2020-11-10 00:00:00 Tobacco use and exposure [facility] Primary Care [facility] 2020-11-10 00:00:00 Exercise [facility] 2020-11-10 00:00:00 Details of drug misuse behavior [facility] 2020-11-10 00:00:00 Alcohol use [facility] 2020-11-10 00:00:00 Tobacco smoking status [facility] Primary [facility] 2020-11-10 00:00:00 Former smoker [facility] 2020-11-24 00:00:00 COMPREHENSIVE METABOLIC PANEL [facility] 2020-11-24 00:00:00 CBC W/Diff/Plt [facility] 2020-11-24 00:00:00 TSH WITH REFLEX TO FT4 [facility] 2020-11-24 00:00:00 LIPIDS SCREEN [facility] 2020-12-05 00:00 ACUTE UPPER RESPIRATORY [facility] INFECTION, UNSPECIFIED 2020-12-05 00:00 PNEUMONIA DUE TO OTHER SPECIFIED [facility] BACTERIA 2020-12-05 00:00:00 CHEST 2 VIEW [facility] 2020-12-05 00:00:00 Basic Metabolic Panel (BMP) [facility] 2020-12-05 00:00:00 [employer] ADJUST[employer] [facility] [place] [facility] 2020-12-05 00:00:00 CBC W/O Diff/Plt [facility] [facility] 2020-12-05 00:00:00 COVID19 Testing [facility] [place] [facility] 2020-12-05 00:00:00 Pneumonia due to other specified [facility] bacteria [facility] 2020-12-05 00:00:00 Bacterial pneumonia [facility] Kirsty iker [facility] [place] [facility] Allergies date description facility NO KNOWN ENVIRONMENTAL ALLERGIES [facility] NO KNOWN ALLERGIES [facility] ARCELIA Inhibitors [facility] Jzxwewc-Hfj-Qho Reductase Inhibitor [facility] Calcium Channel Blocking Agent [facility] cephalexin [facility] simvastatin [facility] amiodarone [facility] SESTAMIBI [facility] ARCELIA Inhibitors [facility] Itjpppn-Ifq-Xyr Reductase Inhibitor [facility] Calcium Channel Blocking Agent [facility] cephalexin [facility] simvastatin [facility] amiodarone [facility] CAT HAIR EXTRACT [facility] NITROFURANTOIN [facility] PREGABALIN [facility] PENICILLINS [facility] SULFA ANTIBIOTICS [facility] NO ALLERGY INFORMATION AVAILABLE [facility] Medications date description facility 2020-10-13 00:00:00 null [facility] [place] [facility] 2020-10-13 00:00:00 null [facility] [place] [facility] 2020-10-13 00:00:00 AZITHROMYCIN [facility] [place] [facility] 2020-10-13 00:00:00 [facility]ROMYCIN [facility] [place] [facility] 2020-12-05 00:00:00 null [facility] [place] [facility] 2020-12-05 00:00:00 null [facility] 2020-12-05 00:00:00 null [facility] 2020-12-05 00:00:00 null [facility] 2020-12-05 00:00:00 AZITHROMYCIN [facility] 2020-12-05 00:00:00 GUAIFENESIN [facility] [facility] 2020-12-05 00:00:00 AZITHROMYCIN [facility] 2020-12-05 00:00:00 GUAIFENESIN [facility] [facility] Procedures date description facility 2020-10-13 00:00:00 TSH WITH REFLEX TO FT4 [facility] date description facility 2020-10-13 00:00:00 CHEST 2 VIEW [facility] date description facility 2020-10-13 00:00:00 LIPIDS SCREEN [facility] [place] [facility] date description facility 2020-10-13 00:00:00 PSA, SCREENING [facility] [place] [facility] date description facility 2020-10-13 00:00:00 COVID19 Testing [facility] [place] [facility] date description facility 2020-10-13 00:00:00 [facility] [place] [facility] date description facility 2020-10-23 00:00:00 Basic Metabolic Panel (BMP) [facility] date description facility 2020-10-23 00:00:00 [facility] [facility] date description facility 2020-12-05 00:00:00 Basic Metabolic Panel (BMP) [facility] date description facility 2020-12-05 00:00:00 [employer] INS[employer] AND ADJUST[employer] [facility] [place] [facility] date description facility 2020-12-05 00:00:00 CBC W/O Diff/Plt [facility] [place] [facility] date description facility 2020-12-05 00:00:00 IM or SQ Injection [facility] [place] [facility] date description facility 2020-12-05 00:00:00 Rocephin 1000 mg [facility] [place] [facility] date description facility 2020-12-05 00:00:00 [facility] [facility] Results Social History date description facility 2020-09-12 00:00:00 Former smoker [facility] [place] [facility] date description facility 2020-10-23 00:00:00 Former smoker [facility] [place] [facility] date description facility 2020-11-10 00:00:00 Former smoker [facility] [place] [facility] Social History date description facility 2020-09-12 00:00:00 Former smoker [facility] date description facility 2020-10-23 00:00:00 Former smoker [facility] date description facility 2020-11-10 00:00:00 Former smoker [facility] date description facility [id number]
== END 2020-11-29 10:11 | disposition home or self-care (01) ==
LOC: SC 10:10
PROVIDERS: ATTEND Nurse Practitioner Family
DX: G47.33 Obstructive sleep apnea (adult) (pediatric) (principal); E66.9 Obesity, unspecified; Z68.31 Body mass index [BMI] 31.0-31.9, adult
CPT/HCPCS: 99213; G0463; 99212

== ENCOUNTER 2020-12-05 08:00 | Outpatient (CLI) | payer MEDICARE ==
[2020-12-05 18:52] LABS: BASOPHILS % (AUTO) 0.4 %; EOSINOPHILS # (AUTO) 0.1 10^3/uL (0.0-0.7); EOSINOPHILS % (AUTO) 1.2 %; HGB - HEMOGLOBIN 14.1 g/dL (14.0-18.0); LYMPHOCYTES # (AUTO) 2.1 10^3/uL (1.5-3.5); LYMPHOCYTES % (AUTO) 22.1 %; MEAN CORPUSCULAR HEMOGLOBIN 35.9 pg (27.0-31.0); MEAN CORPUSCULAR HGB CONC 32.2 g/dL (32.0-36.0); MEAN CORPUSCULAR VOLUME 111.5 fL (80.0-94.0); MEAN PLATELET VOLUME 10.5 fL (7.4-11.4); MONOCYTES # (AUTO) 0.8 10^3/uL (0.0-1.0); MONOCYTES % (AUTO) 8.5 %; NEUTROPHILS # (AUTO) 6.4 10^3/uL (1.5-6.6); NEUTROPHILS % (AUTO) 67.6 %; PLT - PLATELET COUNT 145 10^3/uL (130-450); RED BLOOD COUNT 3.93 10^6/uL (4.70-6.10); RED CELL DISTRIBUTION WIDTH 13.2 % (12.0-15.0); WHITE BLOOD COUNT 9.5 x10^3/uL (4.8-10.8)
[2020-12-05 18:59] LABS: CREATININE 2.5 mg/dL (0.6-1.2)
[2020-12-05 21:28] LABS: PLATELET ESTIMATE, MANUAL NORMAL (130-450,000) (NORMAL); PLATELET MORPHOLOGY NORMAL APPEARANCE (NORMAL); RBC MORPHOLOGY (MULTIPLE) 2+ MACROCYTOSIS (NORMAL)
== END 2020-12-05 08:01 | disposition home or self-care (01) ==
LOC: LAB.N 08:00
PROVIDERS: ATTEND Nurse Practitioner
DX: J06.9 Acute upper respiratory infection, unspecified (principal); J15.8 Pneumonia due to other specified bacteria; Z20.822 Contact with and (suspected) exposure to COVID-19
CPT/HCPCS: 36415; 80048; 83880; 85025; U0004

== ENCOUNTER 2020-12-05 14:57 | Outpatient (CLI) | payer MEDICARE ==
--- NOTE | 2020-12-05 15:28 | XRAY Report ---
PROCEDURE: Chest 2 View X-Ray INDICATIONS: ACUTE UPPER RESPIRATORY INFECTION TECHNIQUE: 2 view(s) of the chest. COMPARISON: 10/13/2020 FINDINGS: Surgical changes and devices: Left-sided pacer. Lungs and pleura: No pleural effusions or pneumothorax. Lungs are clear. Mediastinum: Mediastinal contours are normal. Heart size is enlarged. Bones and chest wall: No suspicious bony abnormalities. Soft tissues appear unremarkable. IMPRESSION: 1. Cardiomegaly. 2. No acute process. Reviewed by: Verónica Jorgensen MD on 12/05/2020 3:27 PM PST Approved by: Verónica Jorgensen MD on 12/05/2020 3:27 PM PST Station ID: [id number]
== END 2020-12-05 23:59 | disposition home or self-care (01) ==
LOC: DI.N 14:57
PROVIDERS: ATTEND Nurse Practitioner
DX: J06.9 Acute upper respiratory infection, unspecified (principal); I51.7 Cardiomegaly

== ENCOUNTER 2021-01-12 08:00 | Outpatient (CLI) | payer MEDICARE | END 2021-01-12 23:59 | disposition home or self-care (01) | LOC: LAB.N 08:00 | PROVIDERS: ATTEND Nurse Practitioner | DX: J06.9 Acute upper respiratory infection, unspecified (principal); Z20.822 Contact with and (suspected) exposure to COVID-19 | CPT/HCPCS: 87275; 87276; U0004 ==

== ENCOUNTER 2021-01-26 09:05 | Outpatient (CLI) | payer MEDICARE ==
--- NOTE | 2021-01-26 11:27 | CT Report ---
PROCEDURE: CHEST WO INDICATIONS: ACUTE RESPIRATORY INFECTION TECHNIQUE: Noncontrast 5 mm thick sections acquired from the pulmonary apices to the posterior costophrenic angl es. 7 mm thick coronal and sagittal MIP reformats were then acquired. For radiation dose reduction, the following was used: automated exposure control, adjustment of mA and/or kV according to patient size. COMPARISON: None. Correlation made to chest x-rays 12/05/2020, 10/13/2020, 05/31/2020 FINDINGS: Image quality: Excellent. Lungs and pleura: There are changes of focal atelectasis with slight volume loss and minor windows server architect ural distortion in the medial aspect of the left lower lobe. This includes minor subpleural consolida tion posterior medially. No other airspace opacities. There are several small pleural and parenchymal calcifications in the right upper lobe and occasionally in the right lower lobe.. Calcified pleural plaquing is centered anteriorly in the right upper lobe. A few calcified and noncalcified pleural floridalma ques are present in the left upper lobe. No acute air space opacities. No pleural effusions or pneum othorax. Central and peripheral airways are patent and normal in caliber. Mediastinum: Heart size is enlarged and a 3-lead pacemaker is present. Heavy coronary artery calcifi cation. No pericardial effusion. No mediastinal adenopathy by size criteria. Thoracic aorta and ce ntral pulmonary arteries are normal in size. Moderate thoracic aortic calcification. Esophagus is nor mal in caliber. No hiatal hernia. Bones and chest wall: No suspicious bony lesions. No vertebral body compression fractures. No axil isabela or supraclavicular adenopathy by size criteria. The thyroid is normal in size. Abdomen: Visualized the kidneys appear atrophic and there is a partially imaged cyst in the posterio r left kidney. There is heavy abdominal aortic calcification. Upper abdominal solid organs and bowel loops appear otherwise normal in the absence of contrast. IMPRESSION: 1. No acute appearing airspace opacity. 2. Changes of small amount of atelectasis at the medial left lower lobe. 3. Bilateral small calcified and noncalcified pleural plaques without pleural effusion. Findings sugg estive of asbestosis. 4. Heavy coronary and systemic atherosclerotic calcification. 5. Mild cardiomegaly. Reviewed by: Pam Rendon MD on 01/26/2021 11:26 AM PST Approved by: Pam Rendon MD on 01/26/2021 11:26 AM [facility] Station ID: [id number]
== END 2021-01-26 09:06 | disposition home or self-care (01) ==
LOC: DI 09:05
PROVIDERS: ATTEND Nurse Practitioner
DX: R91.8 Other nonspecific abnormal finding of lung field (principal); I25.10 Atherosclerotic heart disease of native coronary artery without angina pectoris; I51.7 Cardiomegaly

== ENCOUNTER 2021-02-07 10:06 | Outpatient (CLI) | payer MEDICARE ==
--- NOTE | 2021-02-07 10:42 | SLEEP CARE CONSULTATION ---
Information from patient questionnaire entered by Lashonda Kaye. I have reviewed and concur with the information entered by Lashonda Kaye. This document represents the service I personally performed and the decisions made by , Vero Solomon ARNP. History of Present Illness Service Date and Time: 02/07/2021 1006 Previous diagnosis: Very Severe, Obstructive Sleep Apnea-Hypopnea Syndrome AHI: 70.3 (in 2018) Reason for follow up: other (2 month with pressure change) Equipment type: BiPAP Equipment obtained from: [employer] (getting supplies as needed as long as goes to [facility]) Mask style: Full face Backup mask available: Yes (old mask) Last cushion change: 1-2 months ago Prior sleep studies: Yes Year and Where: [address] - [facility], 2004 - [facility] additional information: BABAR HARRISON was diagnosed to have very severe, AHI 70.3, obstructive sleep apnea-hypopnea syndrome and returned today with spouse for CPAP therapy two month pressure change follow-up. CPAP Compliance Data - Data Reviewed with Patient Average duration of nightly device use: 8 hr 1 min Compliance rate %: 98.3 (60 days) Current pressure setting (cmH2O): 16 Humidity settin Heated hose settin Average residual AHI: 18.2 Average large leak: 1 min 23 sec Compliance data discussion: The lowest the AHI has been since being here, according to , has been 11. Subjective Patient concerns: denies: aerophagia, mask discomfort, air blowing in eyes, mask leak noise, condensation in mask/hose, nasal congestion, dry mouth, nose, throat, epistaxis, other Observed to snore while using device: No Current pressure setting perceived as: comfortable On therapy, patient: reports: sleeping better, awakening more refreshed, being more awake and alert during the day, more rested overall. denies: drowsiness while driving Initial [place] Sleepiness Scale score: 4 (in 2018) Current [place] Sleepiness Scale score: 11 Allergies and Home Medications Home medication list reviewed: Yes (no new medications) Review of Systems Review of systems same as previous: No (asbestos in lungs) Physical Exam Heart Rate: 61 O2 Saturation: 94 Height: 5 ft 4.5 in Weight: 194 lb Body Mass Index: 32.8 BMI Classification: Obese Impression and Plan 1. Obstructive Sleep Apnea-Hypopnea Syndrome, very severe, with good treatment compliance and fair apnea control with elevated residual AHI. On CPAP therapy, the patient has better sleep quality and is more rested overall. He has significant clinical improvement on current settings but the pressure is slightly ineffective. He would probably benefit from BIPAP therapy to control the central apneas. I discussed again with patient and his that we need a titration study to determine best pressure range and to evaluate for BIPAP. She tells me he will not agree to a titration study and would like to wait on this at this time. He is happy with current pressure setting and his states she has seen his residual AHI as low as 11 on this setting. I will not adjust his pressure at this time. 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 I encouraged him to try to lose weight and states they are trying to walk more often. Patient's apnea severity and rationale for treatment to reduce apnea, improve sleep quality and reduce cardiovascular and cerebrovascular events was reviewed. I also reviewed the benefit of consistent device use of CPAP for hypertension, cerebrovascular disease, and arrhythmia. * Continue auto CPAP pressure at 16 cmH2O * Notify me if snoring with mask or feeling that the pressure is too much or too little * Attempt to lose weight * Call this office if any problems using CPAP * Return for follow up in 1 year, or sooner if concerns arise Counseling Topics: Weight loss health impact Visit Type: In Office Time Spent with Patient (minutes): 22 Provider Statement: I spent 100% of the Face to Face Visit with the patient with greater than 50% spent counseling the patient and coordination of care.
== END 2021-02-07 10:07 | disposition home or self-care (01) ==
LOC: SC 10:06
PROVIDERS: ATTEND Nurse Practitioner Family
DX: G47.33 Obstructive sleep apnea (adult) (pediatric) (principal); E66.9 Obesity, unspecified; Z68.32 Body mass index [BMI] 32.0-32.9, adult
CPT/HCPCS: 99213; G0463; 99212

== ENCOUNTER 2021-03-02 10:20 | Outpatient (CLI) | payer MEDICARE ==
--- NOTE | 2021-03-02 11:34 | XRAY Report ---
PROCEDURE: Foot 3 View LT INDICATIONS: LEFT FOOT PAIN TECHNIQUE: 3 views of the foot were acquired. COMPARISON: None FINDINGS: Bones: No fractures or dislocations. No suspicious bony lesions. Arthrodesis of the first metatars ophalangeal joint has been performed. Periarticular osteophyte formation at the interphalangeal joint s of the digits is present, indicating osteoarthritis. Soft tissues: No tibiotalar joint effusion. Achilles tendon appears normal. IMPRESSION: Posterior acoustical sequelae. No acute fracture. No osseous lesion. If symptoms and/or clinical susp icion for pathology continue, further assessment with repeat plain films, or advanced imaging (e.g., CT, MRI, or bone scan) is recommended for further assessment. Reviewed by: Verónica Jorgensen MD on 03/02/2021 11:32 AM PDT Approved by: Verónica Jorgensen MD on 03/02/2021 11:32 AM PDT Station ID: [id number]
== END 2021-03-02 10:21 | disposition home or self-care (01) ==
LOC: DI.N 10:20
PROVIDERS: ATTEND Internal Medicine
DX: M79.672 Pain in left foot (principal)

== ENCOUNTER 2021-03-10 08:37 | Outpatient (CLI) | payer MEDICARE | END 2021-03-10 08:38 | disposition critical access hospital (66) | LOC: EMS 08:37 | DX: R29.810 Facial weakness (principal) | CPT/HCPCS: A0425; A0427 ==

== ENCOUNTER 2021-03-10 08:45 | Emergency (ER) | payer MEDICARE ==
--- NOTE | 2021-03-10 08:52 | ED Physician Documentation ---
PD HPI FOCAL NEURO - Stated complaint Stated Complaint: AMS - History obtained from History obtained from: EMS - Additional information Additional information: Initial history is from EMS and chart review. The is on the way. This is a 89-year-old gentleman with history of dementia, tacky bradycardia syndrome with permanent pacemaker, CHF, chronic kidney disease. Reportedly his heard him get up and eat this morning at 5 AM and is presumed he was in his normal state of health at that time. Later was found to have right-sided deficits and then with EMS progressed to obtundation with reported GCS of 6-7, blood sugar 120, and no response to Narcan. On arrival he is unable to give any history. arrived and we spoke around 9:15 AM. She corroborates the above history, also notes that he probably got up around 5 and to her it looks like he went through his normal breakfast routine and turned on the lights so suspects he was okay then. She found him a little after 8 sitting in his usual chair gazing off to the right with right-sided weakness and decreased level of consciousness. She confirms he is still on warfarin, and we discussed that that probably makes him not a TPA candidate. She also notes that he had a brief episode of altered mental status, only about a few minutes, 2 mornings ago. Review of Systems Unable to obtain: Confused PD PAST MEDICAL HISTORY - Past Medical History Cardiovascular: Hypertension, High cholesterol, Atrial fibrillation Respiratory: None Neuro: None Endocrine/Autoimmune: None GI: Ulcers : None, Renal insuffiency HEENT: Glaucoma Psych: None Musculoskeletal: None Derm: None - Past Surgical History Past Surgical History: Yes General: Appendectomy Ortho: Other Cardiovascular: Pacemaker HEENT: Other (corneal transplant) - Present Medications Home Medications: Ambulatory Orders Medication Instructions Recorded Confirmed Atorvastatin Calcium [Lipitor] 80 mg PO QPM 02/06/17 11/01/20 Losartan [Cozaar] 12.5 mg PO ACHS 02/06/17 11/01/20 Acyclovir 400 mg ORAL BID 02/15/19 11/01/20 Cyclosporine [Restasis] 1 drops EACHEYE BID 02/15/19 11/01/20 Metronidazole [Metrogel] 1 applic TOP DAILY PRN 02/15/19 11/01/20 Torsemide 20 mg PO DAILY MDD as needed 02/15/19 11/01/20 dosing 20 mg wt gain Warfarin Sodium 2 mg DAILY MDD managed by 02/15/19 11/01/20 cardiology Dorzolamide 2% Ophth Drops 1 drops EACHEYE BID 05/18/19 11/01/20 [Trusopt 2% Ophth Drops] Multivitamin [Multivitamins] 1 tab PO DAILY 05/18/19 11/01/20 Cyanocobalamin (Vitamin B-12) 1,000 mg PO DAILY 07/14/19 11/01/20 [Vitamin B-12] Folic Acid 800 mcg PO DAILY 07/14/19 11/01/20 Levothyroxine [Synthroid] 100 mcg PO DAILY 07/14/19 11/01/20 Febuxostat [Uloric] 40 mg PO DAILY 12/16/19 11/01/20 Metoprolol Succinate 100 mg PO DAILY 05/02/20 11/01/20 Aspirin 81 mg PO DAILY 07/21/20 11/01/20 - Allergies Allergies/Adverse Reactions: Allergies Allergy/AdvReac Type Severity Reaction Status Date / Time ARCELIA Inhibitors Allergy Unknown Verified 03/10/21 08:54 amiodarone Allergy Unknown Verified 03/10/21 08:54 Calcium Channel Blocking Allergy Unknown Verified 03/10/21 08:54 Agent Dilt cephalexin Allergy Unknown Verified 03/10/21 08:54 simvastatin [From Zocor] Allergy Cramps Verified 03/10/21 08:54 [id number]-[id number] Reductase AdvReac Unknown Verified 03/10/21 08:54 Inhibitor - Social History Does the pt smoke?: No Smoking Status: Never smoker Does the pt drink ETOH?: Yes Does the pt have substance abuse?: No - Immunizations Immunizations are current?: Yes - POLST Patient has POLST: Yes PD ED PE NORMAL - Vitals Vital signs reviewed: Yes - General General: No acute distress, Other (He will open his eyes to loud verbal stimulus and follows simple commands, but he is nonverbal.) - HEENT HEENT: Other (Rosacea on the face) - Neck Neck: Supple, no meningeal sign, No bony TTP - Cardiac Cardiac: Other (Irregularly irregular with normal rate) - Respiratory Respiratory: No respiratory distress, Clear bilaterally - Abdomen Abdomen: Normal bowel sounds, Soft, Non tender - Back Back: No CVA TTP, No spinal TTP - Derm Derm: Normal color, Warm and dry - Extremities Extremities: Other (1+pedal edema) - Neuro Neuro: Other (He seems to have relatively symmetric strength, he will sports management internship my fingers on either side weakly but, again seems symmetric. He attempts to move either leg with prompting but can't get either off the bed.) Eye Opening: To Voice Motor: Obeys Commands Verbal: None GCS Score: 10 Results - Vitals Vitals: Vital Signs - 24 hr 03/10/21 03/10/21 08:45 10:53 Temperature 36.6 C Heart Rate 63 64 Respiratory 16 13 Rate Blood Pressure 124/67 117/76 O2 Saturation 98 100 Oxygen O2 Source Room air - EKG (time done) 0851 Rate: Rate (enter#) (59) Rhythm: Atrial fibrillation, Paced Computer interpretation: Agree with computer - Labs Labs: Laboratory Tests 03/10/21 03/10/21 03/10/21 08:57 09:00 09:00 WBC 10.7 RBC 3.79 L Hgb 13.4 L Hct 41.6 L MCV 109.8 H MCH 35.4 H MCHC 32.2 RDW 14.2 Plt Count 130 MPV 10.0 Neut # (Auto) 7.7 H Lymph # (Auto) 2.1 Esmeralda # (Auto) 0.8 Eos # (Auto) 0.1 Baso # (Auto) 0.0 Absolute Nucleated RBC 0.00 Nucleated RBC % 0.0 PT 18.5 H INR 1.7 H Sodium Potassium Chloride Carbon Dioxide Anion Gap BUN Creatinine Estimated GFR (MDRD) Glucose Calcium Magnesium Total Bilirubin AST ALT Alkaline Phosphatase Total Protein Albumin Globulin Albumin/Globulin Ratio Nasal Adenovirus (PCR) NOT DETECTED Nasal B. parapertussis DNA (PCR) NOT DETECTED Nasal Coronavir 229E PCR NOT DETECTED Nasal Coronavir HKU1 PCR NOT DETECTED Nasal Coronavir NL63 PCR NOT DETECTED Nasal Coronavir OC43 PCR NOT DETECTED Nasal Enterovir/Rhinovir PCR NOT DETECTED Nasal Influenza B PCR NOT DETECTED Nasal Influenza A PCR NOT DETECTED Nasal Parainfluen 1 PCR NOT DETECTED Nasal Parainfluen 2 PCR NOT DETECTED Nasal Parainfluen 3 PCR NOT DETECTED Nasal Parainfluen 4 PCR NOT DETECTED Nasal RSV (PCR) NOT DETECTED Nasal B.pertussis DNA PCR NOT DETECTED Nasal C.pneumoniae (PCR) NOT DETECTED Thang Human Metapneumo PCR NOT DETECTED Nasal M.pneumoniae (PCR) NOT DETECTED Nasal SARS-CoV-2 (PCR) NOT DETECTED Ethyl Alcohol 03/10/21 09:00 WBC RBC Hgb Hct MCV MCH MCHC RDW Plt Count MPV Neut # (Auto) Lymph # (Auto) Esmeralda # (Auto) Eos # (Auto) Baso # (Auto) Absolute Nucleated RBC Nucleated RBC % PT INR Sodium 141 Potassium 3.7 Chloride 106 Carbon Dioxide 27 Anion Gap 8.0 BUN 67 H Creatinine 2.3 H Estimated GFR (MDRD) 27 L Glucose 89 Calcium 8.9 Magnesium 2.6 Total Bilirubin 1.1 H AST 23 ALT 25 Alkaline Phosphatase 87 Total Protein 6.3 L Albumin 4.1 Globulin 2.2 Albumin/Globulin Ratio 1.9 Nasal Adenovirus (PCR) Nasal B. parapertussis DNA (PCR) Nasal Coronavir 229E PCR Nasal Coronavir HKU1 PCR Nasal Coronavir NL63 PCR Nasal Coronavir OC43 PCR Nasal Enterovir/Rhinovir PCR Nasal Influenza B PCR Nasal Influenza A PCR Nasal Parainfluen 1 PCR Nasal Parainfluen 2 PCR Nasal Parainfluen 3 PCR Nasal Parainfluen 4 PCR Nasal RSV (PCR) Nasal B.pertussis DNA PCR Nasal C.pneumoniae (PCR) Thang Human Metapneumo PCR Nasal M.pneumoniae (PCR) Nasal SARS-CoV-2 (PCR) Ethyl Alcohol < 5.0 PD MEDICAL DECISION MAKING - ED course Complexity details: reviewed old records (Palliative care note by Tete Daniels 11/01/20 and POLST = limited interventions, DNR) ED course: 89-year-old gentleman presents with an episode of weakness followed by obtundation. Short time after his arrival his mental status became normal. And he was observed for several hours. He had no further episodes of altered mental status or weakness. The felt he was at his baseline and comfortable taking him home. Departure - Departure Disposition: 01 Home, Self Care Clinical Impression: Subtherapeutic anticoagulation Atrial fibrillation Qualifiers: Atrial fibrillation type: permanent Qualified Code(s): I48.21 - Permanent atrial fibrillation Condition: Stable Instructions: ED Dementia Alzheimer, ED Dementia Caregiver Support Comments: Unclear what transpired today but thankfully it was transient. Return at anytime for new or worsening symptoms. Follow-up with your primary care physician.
[2021-03-10 09:07] LABS: BASOPHILS % (AUTO) 0.3 %; EOSINOPHILS # (AUTO) 0.1 10^3/uL (0.0-0.7); EOSINOPHILS % (AUTO) 0.6 %; HCT - HEMATOCRIT 41.6 % (42.0-52.0); HGB - HEMOGLOBIN 13.4 g/dL (14.0-18.0); LYMPHOCYTES # (AUTO) 2.1 10^3/uL (1.5-3.5); MEAN CORPUSCULAR HEMOGLOBIN 35.4 pg (27.0-31.0); MEAN CORPUSCULAR HGB CONC 32.2 g/dL (32.0-36.0); MEAN CORPUSCULAR VOLUME 109.8 fL (80.0-94.0); MONOCYTES # (AUTO) 0.8 10^3/uL (0.0-1.0); NEUTROPHILS # (AUTO) 7.7 10^3/uL (1.5-6.6); NEUTROPHILS % (AUTO) 71.5 %; PLT - PLATELET COUNT 130 10^3/uL (130-450); RED BLOOD COUNT 3.79 10^6/uL (4.70-6.10); RED CELL DISTRIBUTION WIDTH 14.2 % (12.0-15.0); WHITE BLOOD COUNT 10.7 x10^3/uL (4.8-10.8)
--- OUTSIDE RECORDS SUMMARY | 2021-03-10 09:20 | EXTERNAL MEDICAL SUMMARY RPT | Continuity of Care Document ---
:1930 Demographics Phone Unavailable Preferred Language Unknown Marital Status Unknown Cheondoism Affiliation Unknown Race Unknown Ethnic Group Unknown Author Organization [facility] Address [address] [phone] Phone Social History date description facility [phone]
[2021-03-10 09:23] LABS: ALBUMIN 4.1 g/dL (3.2-5.5); ALBUMIN/GLOBULIN RATIO 1.9 (1.0-2.2); ALKALINE PHOSPHATASE 87 IU/L (42-121); ALT ALANINE AMINOTRANSFERASE 25 IU/L (10-60); AST ASPARTATE AMINOTRANSFERASE 23 IU/L (10-42); BILIRUBIN,TOTAL 1.1 mg/dL (0.2-1.0); BUN - BLOOD UREA NITROGEN 67 mg/dL (6-20); CALCIUM 8.9 mg/dL (8.5-10.3); CARBON DIOXIDE - CO2 27 mmol/L (21-32); CHLORIDE 106 mmol/L (101-111); CREATININE 2.3 mg/dL (0.6-1.2); ETOH - ETHANOL < 5.0 mg/dL; GFR - MDRD 27 (>89); GLUCOSE 89 mg/dL (70-100); MAGNESIUM 2.6 mg/dL (1.7-2.8); POTASSIUM 3.7 mmol/L (3.5-5.0); SODIUM 141 mmol/L (135-145); TOTAL PROTEIN 6.3 g/dL (6.7-8.2)
[2021-03-10 09:26] LABS: INR 1.7 (0.8-1.2); PT - PROTHROMBIN TIME 18.5 secs (9.9-12.6)
--- NOTE | 2021-03-10 09:26 | CT Report ---
PROCEDURE: HEAD WO INDICATIONS: Obtunded TECHNIQUE: Noncontrast 4.5 mm thick angled axial sections acquired from the foramen magnum to the vertex. For r adiation dose reduction, the following was used: automated exposure control, adjustment of mA and/or kV according to patient size. COMPARISON: CT head dated 05/05/2020 FINDINGS: Image quality: Excellent. CSF spaces: Ventricles and extra-axial CSF spaces are prominent consistent with cerebral volume loss. No focal extra-axial fluid collection. Brain: No midline shift. No intracranial masses or hemorrhage. Periventricular and deep white matte r hypoattenuation no significant change from prior exams. Roe-white matter interface is preserved. Atherosclerotic calcifications are noted within the proximal intracranial vasculature. Skull and face: Calvarium and visualized facial bones are intact, without suspicious lesions. Posts urgical changes of the globes. Sinuses: Visualized sinuses and mastoids are clear. IMPRESSION: Findings consistent with cerebral volume loss and microvascular ischemic changes without evidence of an acute intracranial abnormality. Reviewed by: Isaias Foster DO on 03/10/2021 8:24 AM KISHAN Approved by: Isaias Foster DO on 03/10/2021 8:24 AM KISHAN Station ID: [id number]
[2021-03-10 09:59] LABS: CORONAVIRUS 229E-RESP PCR NOT DETECTED; CORONAVIRUS HKU1-RESP PCR NOT DETECTED; CORONAVIRUS NL63-RESP PCR NOT DETECTED; CORONAVIRUS OC43-RESP PCR NOT DETECTED; HUMAN METAPNEUMOVIRUS NOT DETECTED; INFLUENZA A- RESP PCR PANEL NOT DETECTED; RHINOVIRUS/ENTEROVIRUS NOT DETECTED; SARS-CoV-2 -RESP PCR PANEL NOT DETECTED
[2021-03-10 10:00] LABS: B. PARAPERTUSSIS- RESP PCR PAN NOT DETECTED; B. PERTUSSIS- RESP PCR PANEL NOT DETECTED; C. PNEUMONIAE- RESP PCR PANEL NOT DETECTED; INFLUENZA B - RESP PCR PANEL NOT DETECTED; M. PNEUMONIAE- RESP PCR PANEL NOT DETECTED; PARAINFLUENZA VIRUS 1 NOT DETECTED; PARAINFLUENZA VIRUS 2 NOT DETECTED; PARAINFLUENZA VIRUS 3 NOT DETECTED; PARAINFLUENZA VIRUS 4 NOT DETECTED; RSV- RESP PCR PANEL NOT DETECTED
[2021-03-10 12:31] VITALS: BP 118/69
== END 2021-03-10 12:52 | disposition home or self-care (01) ==
LOC: EDUNIT# → ED 08:45
DX: R29.898 Other symptoms and signs involving the musculoskeletal system (principal); R41.82 Altered mental status, unspecified; Z20.822 Contact with and (suspected) exposure to COVID-19; R79.1 Abnormal coagulation profile; I48.21 Permanent atrial fibrillation; Z79.01 Long term (current) use of anticoagulants; Z79.82 Long term (current) use of aspirin; Z95.0 Presence of cardiac pacemaker; F03.90 Unspecified dementia, unspecified severity, without behavioral disturbance, psychotic disturbance, mood disturbance, and anxiety; I11.0 Hypertensive heart disease with heart failure; I50.9 Heart failure, unspecified; L71.9 Rosacea, unspecified; Z66 Do not resuscitate
CPT/HCPCS: 36415; 70450; 80053; 83735; 85025; 85610; 87631; 93005; 99284; 99285; G0480; 0202U; 80320

== ENCOUNTER 2021-04-24 16:04 | Emergency (ER) | payer MEDICARE ==
--- OUTSIDE RECORDS SUMMARY | 2021-04-24 16:08 | EXTERNAL MEDICAL SUMMARY RPT | Continuity of Care Document ---
:1930 Demographics Phone Unavailable Preferred Language Unknown Marital Status Unknown Buddhist Affiliation Unknown Race Unknown Ethnic Group Unknown Author Organization [facility] Address [address] [phone] Phone Allergies Encounters Medications Problems Results
--- OUTSIDE RECORDS SUMMARY | 2021-04-24 16:27 | EXTERNAL MEDICAL SUMMARY RPT | Continuity of Care Document ---
:1930 Demographics Phone Unavailable Preferred Language Unknown Marital Status Unknown Yarsani Affiliation Unknown Race Unknown Ethnic Group Unknown Author Organization [facility] Address [address] [phone] Phone Allergies Encounters Medications Problems Results
[2021-04-24 16:43] LABS: BASOPHILS % (AUTO) 0.5 %; EOSINOPHILS # (AUTO) 0.1 10^3/uL (0.0-0.7); EOSINOPHILS % (AUTO) 1.7 %; HCT - HEMATOCRIT 36.6 % (42.0-52.0); HGB - HEMOGLOBIN 12.1 g/dL (14.0-18.0); LYMPHOCYTES # (AUTO) 1.8 10^3/uL (1.5-3.5); LYMPHOCYTES % (AUTO) 21.6 %; MEAN CORPUSCULAR HEMOGLOBIN 35.2 pg (27.0-31.0); MEAN CORPUSCULAR HGB CONC 33.1 g/dL (32.0-36.0); MEAN CORPUSCULAR VOLUME 106.4 fL (80.0-94.0); MEAN PLATELET VOLUME 10.3 fL (7.4-11.4); MONOCYTES # (AUTO) 0.8 10^3/uL (0.0-1.0); MONOCYTES % (AUTO) 9.7 %; NEUTROPHILS # (AUTO) 5.5 10^3/uL (1.5-6.6); NEUTROPHILS % (AUTO) 66.1 %; PLT - PLATELET COUNT 115 10^3/uL (130-450); RED BLOOD COUNT 3.44 10^6/uL (4.70-6.10); RED CELL DISTRIBUTION WIDTH 13.3 % (12.0-15.0); WHITE BLOOD COUNT 8.3 x10^3/uL (4.8-10.8)
--- NOTE | 2021-04-24 16:46 | XRAY Report ---
PROCEDURE: Chest 1 View X-Ray INDICATIONS: Chest Pain TECHNIQUE: One view of the chest was acquired. COMPARISON: 12/05/2020 FINDINGS: Surgical changes and devices: Left chest wall pacemaker leads are seen in the region of right atrium, right ventricle and left ventricle.. Lungs and pleura: No pleural effusions or pneumothorax. Mild pulmonary vascular congestion is seen. Right perihilar infiltrate cannot be excluded. Mediastinum: Mediastinal contours appear normal. Heart size is enlarged. Bones and chest wall: No suspicious bony lesions. Overlying soft tissues appear unremarkable. IMPRESSION: Cardiomegaly and mild congestion. Cannot rule out small right perihilar infiltrate. No pleural effusi on or pneumothorax. Reviewed by: Fredy Fernandez MD on 04/24/2021 4:45 PM PDT Approved by: Fredy Fernandez MD on 04/24/2021 4:45 PM PDT Station ID: [id number]
[2021-04-24 16:48] LABS: INR 2.3 (0.8-1.2); PT - PROTHROMBIN TIME 24.6 secs (9.9-12.6)
[2021-04-24 16:58] LABS: ALBUMIN 3.9 g/dL (3.2-5.5); ALBUMIN/GLOBULIN RATIO 1.9 (1.0-2.2); CALCIUM 8.3 mg/dL (8.5-10.3); POTASSIUM 4.3 mmol/L (3.5-5.0)
[2021-04-24] MEDS ORDERED: FUROSEMIDE 40 MG/4 ML VIAL IVP STA (17:50)
[2021-04-24 18:21] VITALS: BP 114/74
--- NOTE | 2021-04-24 18:44 | ED Physician Documentation ---
History of Present Illness - Stated complaint Stated Complaint: LEGS/ABD SWELLING/DIZZY - Chief complaint Chief Complaint: Cardiac - Additonal information Additional information: 89-year-old gentleman who has a history of congestive heart failure as well as chronic kidney disease, atrial fibrillation on anticoagulation presents to the emergency department for evaluation of increasing lower extremity edema as well as a 10 pound weight gain over the last 2 days. His reports that he has also been increasingly fatigued with exertion. Patient does have a history of dementia and is being seen by palliative care. confirms for me that he is a DNR DNI. She typically adjust his dose of furosemide at home based on his weight. The last 2 days she is given 40 mg but he has still continued to gain weight. There is been no cough no fevers. Patient denies chest pain. Review of Systems Constitutional: denies: Fever, Chills Eyes: reports: Reviewed and negative Ears: reports: Reviewed and negative Nose: reports: Reviewed and negative Throat: reports: Reviewed and negative Cardiac: reports: Pedal edema. denies: Chest pain / pressure, Palpitations, Calf pain Respiratory: reports: Dyspnea. denies: Cough, Hemoptysis, Wheezing GI: denies: Abdominal Pain, Nausea, Vomiting : reports: Reviewed and negative Skin: reports: Reviewed and negative Musculoskeletal: reports: Reviewed and negative Neurologic: reports: Other (Dementia at baseline.). denies: Generalized weakness, Focal weakness PD PAST MEDICAL HISTORY - Past Medical History Past Medical History: Yes Cardiovascular: Hypertension, High cholesterol, Atrial fibrillation Respiratory: None Neuro: None Endocrine/Autoimmune: None GI: Ulcers : None, Renal insuffiency HEENT: Glaucoma Psych: None Musculoskeletal: None Derm: None - Past Surgical History Past Surgical History: Yes General: Appendectomy Ortho: Other Cardiovascular: Pacemaker HEENT: Other - Present Medications Home Medications: Ambulatory Orders Medication Instructions Recorded Confirmed Atorvastatin Calcium [Lipitor] 80 mg PO QPM 02/06/17 11/01/20 Losartan [Cozaar] 12.5 mg PO ACHS 02/06/17 11/01/20 Acyclovir 400 mg ORAL BID 02/15/19 11/01/20 Torsemide 20 mg PO DAILY MDD as needed 02/15/19 11/01/20 dosing 20 mg wt gain Warfarin Sodium 2 mg DAILY MDD managed by 02/15/19 11/01/20 cardiology cycloSPORINE [Restasis] 1 drops EACHEYE BID 02/15/19 11/01/20 metroNIDAZOLE [Metrogel] 1 applic TOP DAILY PRN 02/15/19 11/01/20 Dorzolamide 2% Ophth Drops 1 drops EACHEYE BID 05/18/19 11/01/20 [Trusopt 2% Ophth Drops] Multivitamin [Multivitamins] 1 tab PO DAILY 05/18/19 11/01/20 Cyanocobalamin (Vitamin B-12) 1,000 mg PO DAILY 07/14/19 11/01/20 [Vitamin B-12] Folic Acid 800 mcg PO DAILY 07/14/19 11/01/20 Levothyroxine [Synthroid] 100 mcg PO DAILY 07/14/19 11/01/20 Febuxostat [Uloric] 40 mg PO DAILY 12/16/19 11/01/20 Metoprolol Succinate 100 mg PO DAILY 05/02/20 11/01/20 Aspirin 81 mg PO DAILY 07/21/20 11/01/20 - Allergies Allergies/Adverse Reactions: Allergies Allergy/AdvReac Type Severity Reaction Status Date / Time ARCELIA Inhibitors Allergy Unknown Verified 04/24/21 16:10 amiodarone Allergy Unknown Verified 04/24/21 16:10 Calcium Channel Blocking Allergy Unknown Verified 04/24/21 16:10 Agent Dilt cephalexin Allergy Unknown Verified 04/24/21 16:10 simvastatin [From Zocor] Allergy Cramps Verified 04/24/21 16:10 [id number] Reductase AdvReac Unknown Verified 04/24/21 16:10 Inhibitor - Social History Does the pt smoke?: No Smoking Status: Never smoker Does the pt drink ETOH?: Yes Does the pt have substance abuse?: No - Immunizations Immunizations are current?: Yes - POLST Patient has POLST: Yes PD ED PE EXPANDED - General General: Alert, No acute distress - Cardiac Cardiac: Regular Rate (Paced ECG rhythm), Regular Rhythm, Murmur Present, Radial strong equal, Pedal strong equal, Cap refill < 2 sec - Respiratory Respiratory: Clear to ausultation payam. No: Distress, Labored - Abdomen Abdomen: Normal Bowel sounds. No: Tender to palpation - Derm Derm: Normal color, Warm and dry. No: Rash, Petecchiae, Purpura - Neuro Neuro: Alert and Oriented X 3. No: Confused, Disoriented - GCS Eye Opening: Spontaneous Motor: Obeys Commands Verbal: Oriented Total: 15 Results - Vitals Vitals: Vital Signs - 24 hr 04/24/21 04/24/21 04/24/21 16:10 16:16 18:16 Temperature 36 C L 36.5 C 36.8 C Heart Rate 69 69 63 Respiratory 20 20 18 Rate Blood Pressure 108/60 108/60 114/74 O2 Saturation 97 97 100 Oxygen O2 Source Room air - EKG (time done) 1621 Rate: Rate (enter#) (60) Rhythm: Paced (Paced rhythm no further evaluation available. Unchanged from last EKG) - Labs Labs: Laboratory Tests 04/24/21 04/24/21 04/24/21 16:37 16:37 16:37 WBC 8.3 RBC 3.44 L Hgb 12.1 L Hct 36.6 L MCV 106.4 H MCH 35.2 H MCHC 33.1 RDW 13.3 Plt Count 115 L MPV 10.3 Neut # (Auto) 5.5 Lymph # (Auto) 1.8 Fountain # (Auto) 0.8 Eos # (Auto) 0.1 Baso # (Auto) 0.0 Absolute Nucleated RBC 0.00 Nucleated RBC % 0.0 PT 24.6 H INR 2.3 H Sodium 134 L Potassium 4.3 Chloride 103 Carbon Dioxide 22 Anion Gap 9.0 BUN 72 H Creatinine 3.0 H Estimated GFR (MDRD) 20 L Glucose 126 H Calcium 8.3 L Total Bilirubin 1.0 AST 26 ALT 21 Alkaline Phosphatase 86 Troponin I High Sens B-Natriuretic Peptide Total Protein 6.0 L Albumin 3.9 Globulin 2.1 Albumin/Globulin Ratio 1.9 Lipase 68 H 04/24/21 04/24/21 16:37 16:37 WBC RBC Hgb Hct MCV MCH MCHC RDW Plt Count MPV Neut # (Auto) Lymph # (Auto) Fountain # (Auto) Eos # (Auto) Baso # (Auto) Absolute Nucleated RBC Nucleated RBC % PT INR Sodium Potassium Chloride Carbon Dioxide Anion Gap BUN Creatinine Estimated GFR (MDRD) Glucose Calcium Total Bilirubin AST ALT Alkaline Phosphatase Troponin I High Sens 19.1 B-Natriuretic Peptide 522 H Total Protein Albumin Globulin Albumin/Globulin Ratio Lipase - Rads (name of study) CXR Radiology: Final report received (Cardiomegaly and mild congestion. Cannot rule out small right perihilar infiltrate. No pleural effusion or pneumothorax.) PD MEDICAL DECISION MAKING - ED course Complexity details: reviewed results, re-evaluated patient, d/w patient ED course: 89-year-old male who has a history of severe congestive heart failure as well as chronic kidney disease comes to the emergency department for evaluation of increasing lower extremity edema as well as about a 10 pound weight gain over the last 2 days. He is a palliative care patient as well as a DNR/DNI. In review of his labs we do note that he does have baseline kidney disease with a elevated BUN and creatinine not markedly different from baseline. His BNP is elevated Just above 500 but not more markedly so than previous. Chest x-ray does show known cardiomegaly with mild congestion. I did spend a fair amount of time at the bedside with the discussing goals of care. She would prefer not to have Mookie admitted to the hospital at this time. She has been increasing his daily dose of turosemide to 40 a day. I have given him a 40 mg of Lasix IV here in the emergency department which did result in an appropriate diuresis. Unfortunately it could not be measured as it was spilled. We discussed that worsening heart failure is expected in the setting of chronic kidney disease. She will increase his torsemide to 60 mg a day. He is advised to have a repeat kidney function test in 48 hours to ensure that he is not g etting overly dry. He will also address this ED visit with his unix analyst and primary care provider. His tells this provider that she recognizes he is living on borrowed time and she feels ready to take him home at this time. Departure - Departure Disposition: 01 Home, Self Care Clinical Impression: CKD (chronic kidney disease) stage 4, GFR 15-29 ml/min, Bilateral lower extremity edema CHF (congestive heart failure) Qualifiers: Heart failure type: unspecified Heart failure chronicity: acute on chronic Qualified Code(s): I50.9 - Heart failure, unspecified Condition: Stable Record reviewed to determine appropriate education?: Yes Follow-Up: Delvis Salazar MD [Primary Care Provider] - Within 3 Days Comments: Mookie was seen in the ER today for a 10 pound weight gain over the last 2 days as well as increased swelling in his lower legs. Here in the emergency department we do note that he has chronic kidney disease that is not markedly different from his baseline. His chest x-ray does not show a pneumonia but he does have heart failure. It will be very difficult in the long-term to manage his heart failure as his kidney disease worsens. I would like you to increase his dose of Torosemide at home to 60 mg a day for the next 2 days. It is important to have his labs specifically his kidney function rechecked early Friday. If he is having increasing leg swelling, worsening shortness of air or increased weight despite increasing the dose of this medication please return to the ER for a second look. Also please discuss this ED visit with his unix analyst and his primary care provider.
== END 2021-04-24 19:45 | disposition home or self-care (01) ==
LOC: ED 16:04
DX: I13.0 Hypertensive heart and chronic kidney disease with heart failure and stage 1 through stage 4 chronic kidney disease, or unspecified chronic kidney disease (principal); N18.4 Chronic kidney disease, stage 4 (severe); I50.9 Heart failure, unspecified; I48.91 Unspecified atrial fibrillation; Z95.0 Presence of cardiac pacemaker; Z79.01 Long term (current) use of anticoagulants; Z79.82 Long term (current) use of aspirin; F03.90 Unspecified dementia, unspecified severity, without behavioral disturbance, psychotic disturbance, mood disturbance, and anxiety; Z66 Do not resuscitate
CPT/HCPCS: 36415; 80053; 83690; 83880; 84484; 85025; 85610; 93005; 96374; 99284

== ENCOUNTER 2021-04-27 16:06 | Outpatient (CLI) | payer MEDICARE ==
[2021-04-27 17:48] LABS: CALCIUM 9.1 mg/dL (8.5-10.3); CREATININE 2.8 mg/dL (0.6-1.2); POTASSIUM 3.7 mmol/L (3.5-5.0)
== END 2021-04-27 16:07 | disposition home or self-care (01) ==
LOC: LAB.N 16:06
PROVIDERS: ATTEND Internal Medicine
DX: N18.4 Chronic kidney disease, stage 4 (severe) (principal)
CPT/HCPCS: 36415; 80048

== ENCOUNTER 2021-06-18 08:00 | Outpatient (CLI) | payer MEDICARE ==
[2021-06-18 12:23] LABS: BASOPHILS % (AUTO) 0.3 %; EOSINOPHILS # (AUTO) 0.1 10^3/uL (0.0-0.7); EOSINOPHILS % (AUTO) 1.5 %; HGB - HEMOGLOBIN 13.6 g/dL (14.0-18.0); LYMPHOCYTES % (AUTO) 21.4 %; MEAN CORPUSCULAR HEMOGLOBIN 34.2 pg (27.0-31.0); MEAN CORPUSCULAR HGB CONC 32.4 g/dL (32.0-36.0); MEAN CORPUSCULAR VOLUME 105.5 fL (80.0-94.0); MEAN PLATELET VOLUME 11.5 fL (7.4-11.4); MONOCYTES # (AUTO) 0.7 10^3/uL (0.0-1.0); MONOCYTES % (AUTO) 7.6 %; NEUTROPHILS # (AUTO) 6.4 10^3/uL (1.5-6.6); NEUTROPHILS % (AUTO) 68.9 %; PLT - PLATELET COUNT 126 10^3/uL (130-450); RED BLOOD COUNT 3.98 10^6/uL (4.70-6.10); WHITE BLOOD COUNT 9.2 x10^3/uL (4.8-10.8)
[2021-06-18 12:44] LABS: ALBUMIN 4.2 g/dL (3.2-5.5); ALBUMIN/GLOBULIN RATIO 1.8 (1.0-2.2); ALKALINE PHOSPHATASE 75 IU/L (42-121); ALT ALANINE AMINOTRANSFERASE 19 IU/L (10-60); AST ASPARTATE AMINOTRANSFERASE 22 IU/L (10-42); BILIRUBIN,TOTAL 1.3 mg/dL (0.2-1.0); BUN - BLOOD UREA NITROGEN 75 mg/dL (6-20); CALCIUM 8.8 mg/dL (8.5-10.3); CARBON DIOXIDE - CO2 24 mmol/L (21-32); CHLORIDE 104 mmol/L (101-111); CHOL/HDL RATIO 3.2 (<5.0); CHOLESTEROL 119 mg/dL; CREATININE 2.8 mg/dL (0.6-1.2); GFR - MDRD 21 (>89); GLUCOSE 101 mg/dL (70-100); HDL CHOLESTEROL 37 mg/dL; LDL CHOLESTEROL,CALCULATED 62 mg/dL; LDL/HDL RATIO 1.7 (<3.6); SODIUM 139 mmol/L (135-145); TOTAL PROTEIN 6.6 g/dL (6.7-8.2); TRIGLYCERIDES 101 mg/dL; VLDL CHOLESTEROL 20 mg/dL
[2021-06-18 12:53] LABS: THYROID STIMULATING HORMONE 0.03 uIU/mL (0.34-5.60)
[2021-06-18 13:28] LABS: FREE T4 (FREE THYROXINE) 1.76 ng/dL (0.58-1.64)
== END 2021-06-18 23:59 | disposition home or self-care (01) ==
LOC: LAB.WCP 08:00
PROVIDERS: ATTEND Family Medicine
DX: I10 Essential (primary) hypertension (principal); E78.5 Hyperlipidemia, unspecified; G45.9 Transient cerebral ischemic attack, unspecified
CPT/HCPCS: 36415; 80053; 80061; 83721; 84439; 84443; 85025

== ENCOUNTER 2021-08-28 16:46 | Outpatient (CLI) | payer MEDICARE ==
[2021-08-28 21:17] LABS: THYROID STIMULATING HORMONE 0.15 uIU/mL (0.34-5.60)
[2021-08-28 21:19] LABS: FREE T4 (FREE THYROXINE) 1.16 ng/dL (0.58-1.64)
== END 2021-08-28 16:47 | disposition home or self-care (01) ==
LOC: LAB.N 16:46
PROVIDERS: ATTEND Internal Medicine
DX: E03.9 Hypothyroidism, unspecified (principal)
CPT/HCPCS: 36415; 84439; 84443

== ENCOUNTER 2021-09-20 13:15 | Outpatient (CLI) | payer MEDICARE | END 2021-09-20 13:16 | disposition home or self-care (01) | LOC: PC 13:15 | PROVIDERS: ATTEND Nurse Practitioner Adult Health | DX: Z51.5 Encounter for palliative care (principal); Z66 Do not resuscitate; F03.90 Unspecified dementia, unspecified severity, without behavioral disturbance, psychotic disturbance, mood disturbance, and anxiety; I13.0 Hypertensive heart and chronic kidney disease with heart failure and stage 1 through stage 4 chronic kidney disease, or unspecified chronic kidney disease; N18.4 Chronic kidney disease, stage 4 (severe); I50.40 Unspecified combined systolic (congestive) and diastolic (congestive) heart failure; R53.1 Weakness; I48.91 Unspecified atrial fibrillation; Z79.01 Long term (current) use of anticoagulants; G47.30 Sleep apnea, unspecified; H40.9 Unspecified glaucoma; H35.30 Unspecified macular degeneration; M19.90 Unspecified osteoarthritis, unspecified site; Z79.82 Long term (current) use of aspirin; Z79.899 Other long term (current) drug therapy; H91.90 Unspecified hearing loss, unspecified ear; R35.0 Frequency of micturition; R32 Unspecified urinary incontinence; E03.9 Hypothyroidism, unspecified; Z91.81 History of falling; R26.2 Difficulty in walking, not elsewhere classified | CPT/HCPCS: 99350 ==

== ENCOUNTER 2021-10-10 10:29 | Outpatient (CLI) | payer MEDICARE ==
[2021-10-10 12:32] LABS: BASOPHILS # (AUTO) 0.1 10^3/uL (0.0-0.1); BASOPHILS % (AUTO) 0.5 %; EOSINOPHILS # (AUTO) 0.1 10^3/uL (0.0-0.7); HCT - HEMATOCRIT 50.2 % (42.0-52.0); HGB - HEMOGLOBIN 15.5 g/dL (14.0-18.0); LYMPHOCYTES # (AUTO) 2.4 10^3/uL (1.5-3.5); LYMPHOCYTES % (AUTO) 17.3 %; MEAN CORPUSCULAR HEMOGLOBIN 34.1 pg (27.0-31.0); MEAN CORPUSCULAR HGB CONC 30.9 g/dL (32.0-36.0); MEAN CORPUSCULAR VOLUME 110.6 fL (80.0-94.0); MEAN PLATELET VOLUME 11.8 fL (7.4-11.4); MONOCYTES # (AUTO) 0.9 10^3/uL (0.0-1.0); MONOCYTES % (AUTO) 6.2 %; NEUTROPHILS # (AUTO) 10.4 10^3/uL (1.5-6.6); NEUTROPHILS % (AUTO) 74.8 %; PLT - PLATELET COUNT 182 10^3/uL (130-450); RED BLOOD COUNT 4.54 10^6/uL (4.70-6.10); RED CELL DISTRIBUTION WIDTH 14.8 % (12.0-15.0); WHITE BLOOD COUNT 13.9 x10^3/uL (4.8-10.8)
[2021-10-10 12:41] LABS: ALBUMIN 4.2 g/dL (3.2-5.5); ALBUMIN/GLOBULIN RATIO 1.4 (1.0-2.2); BILIRUBIN,TOTAL 1.5 mg/dL (0.2-1.0); CALCIUM 9.1 mg/dL (8.5-10.3); CREATININE 3.6 mg/dL (0.6-1.2); POTASSIUM 3.6 mmol/L (3.5-5.0); TOTAL PROTEIN 7.1 g/dL (6.7-8.2)
[2021-10-10 13:42] LABS: PLATELET ESTIMATE, MANUAL NORMAL (130-450,000) (NORMAL); PLATELET MORPHOLOGY NORMAL APPEARANCE (NORMAL); RBC MORPHOLOGY (MULTIPLE) 1+ MACROCYTOSIS (NORMAL); SLIDE REVIEW? Indicated
== END 2021-10-10 10:30 | disposition home or self-care (01) ==
LOC: LAB.N 10:29
PROVIDERS: ATTEND Nurse Practitioner Adult Health
DX: D64.9 Anemia, unspecified (principal); Z79.899 Other long term (current) drug therapy
CPT/HCPCS: 36415; 80053; 84443; 85025

== ENCOUNTER 2021-10-10 15:39 | Emergency (ER) | payer MEDICARE ==
[2021-10-10] MEDS ORDERED: ELECTROLYTE-A SOLUTION 1,000 ML IV ONE (16:31)
--- NOTE | 2021-10-10 16:38 | ED Physician Documentation ---
History of Present Illness - Stated complaint Stated Complaint: WEAKNESS - Chief complaint Chief Complaint: General - History obtained from History obtained from: Patient, Family - History of Present Illness Pain level max: 0 Pain level now: 0 - Additonal information Additional information: Patient is an 89-year-old male who presents to the emergency department with his . She states that he has a longstanding history of dementia. He has had decreased oral intake over the past 2 to 3 weeks. Had outpatient blood work today and was told by his primary to come here for possible pneumonia secondary to an elevated white blood cell count. The patient is unable to give any history. The history is from the . The patient's states he has had no fever, cough. He has had decreased urine output. Decreased oral intake. Nothing makes it better or worse. Review of Systems Unable to obtain: Dementia Constitutional: denies: Fever Respiratory: denies: Cough GI: denies: Vomiting PD PAST MEDICAL HISTORY - Past Medical History Cardiovascular: Hypertension, High cholesterol, Atrial fibrillation Respiratory: None Neuro: None Endocrine/Autoimmune: None GI: Ulcers : None, Renal insuffiency HEENT: Glaucoma Psych: None Musculoskeletal: None Derm: None - Past Surgical History Past Surgical History: Yes General: Appendectomy Ortho: Other Cardiovascular: Pacemaker HEENT: Other - Present Medications Home Medications: Ambulatory Orders Medication Instructions Recorded Confirmed Atorvastatin Calcium [Lipitor] 80 mg PO QPM 02/06/17 09/20/21 Losartan [Cozaar] 12.5 mg PO ACHS 02/06/17 09/20/21 Acyclovir 400 mg ORAL BID 02/15/19 09/20/21 Torsemide 20 mg PO DAILY MDD 10 or 20 mg 02/15/19 09/20/21 evening Warfarin Sodium 2 mg DAILY MDD managed by 02/15/19 09/20/21 cardiology cycloSPORINE [Restasis] 1 drops EACHEYE BID 02/15/19 09/20/21 metroNIDAZOLE [Metrogel] 1 applic TOP DAILY PRN 02/15/19 09/20/21 Dorzolamide 2% Ophth Drops 1 drops EACHEYE BID 05/18/19 09/20/21 [Trusopt 2% Ophth Drops] Cyanocobalamin (Vitamin B-12) 1,000 mg PO DAILY 07/14/19 09/20/21 [Vitamin B-12] Levothyroxine [Synthroid] 100 mcg PO DAILY MDD except 07/14/19 09/20/21 Febuxostat [Uloric] 40 mg PO DAILY 12/16/19 09/20/21 Metoprolol Succinate 100 mg PO BID 05/02/20 09/20/21 Aspirin 81 mg PO DAILY 07/21/20 09/20/21 Thiamine HCl [Vitamin B-1] 1 tab PO DAILY 09/20/21 09/20/21 guaiFENesin [Mucinex] 1 tab PO DAILY PRN 09/20/21 09/20/21 - Allergies Allergies/Adverse Reactions: Allergies Allergy/AdvReac Type Severity Reaction Status Date / Time ARCELIA Inhibitors Allergy Unknown Verified 10/10/21 15:50 amiodarone Allergy Unknown Verified 10/10/21 15:50 Calcium Channel Blocking Allergy Unknown Verified 10/10/21 15:50 Agent Dilt cephalexin Allergy Unknown Verified 10/10/21 15:50 simvastatin [From Zocor] Allergy Cramps Verified 10/10/21 15:50 Ezwshac-JGX-QpG Reductase AdvReac Unknown Verified 10/10/21 15:50 Inhibitor [Wowmsje-Rbb-Glx Reductase Inhibitor] - Social History Does the pt smoke?: No Smoking Status: Never smoker Does the pt drink ETOH?: Yes Does the pt have substance abuse?: No - Immunizations Immunizations are current?: Yes - POLST Patient has POLST: Yes PD ED PE NORMAL - Vitals Vital signs reviewed: Yes - General General: No acute distress, Other (alert, not speaking) - HEENT HEENT: Other (dry lips) - Neck Neck: Supple, no meningeal sign - Cardiac Cardiac: RRR - Respiratory Respiratory: No respiratory distress, Clear bilaterally - Derm Derm: Warm and dry - Extremities Extremities: No calf tenderness / cord - Neuro Neuro: Other (alert, smiling) Results - Vitals Vitals: Vital Signs - 24 hr 10/10/21 10/10/21 10/10/21 15:49 18:14 18:48 Temperature 36.7 C 96.7 C H Heart Rate 85 77 77 Respiratory 16 18 18 Rate Blood Pressure 104/76 119/79 120/80 O2 Saturation 100 100 100 Oxygen O2 Source Room air - Labs Labs: Laboratory Tests 10/10/21 18:05 Urine Color YELLOW Urine Clarity CLEAR Urine pH 5.5 Ur Specific [place] 1.020 Urine Protein NEGATIVE Urine Glucose (UA) NEGATIVE Urine Ketones NEGATIVE Urine Occult Blood NEGATIVE Urine Nitrite NEGATIVE Urine Bilirubin NEGATIVE Urine Urobilinogen 0.2 (NORMAL) Ur Leukocyte Esterase NEGATIVE Ur Microscopic Review NOT INDICATED Urine Culture Comments NOT INDICATED - Rads (name of study) cxr Radiology: Final report received, EMP read contemporaneously, See rad report (no acute disease) PD MEDICAL DECISION MAKING - ED course Complexity details: reviewed results, re-evaluated patient, considered differential, d/w patient, d/w family ED course: No acute findings on urinalysis or chest x-ray. Labs from earlier in the day were reviewed and the patient did appear significantly dehydrated. Has some worsening renal failure as well has hypernatremia. Given Plasma-Lyte. Patient does feel better. We will have him have his labs rechecked with his doctor. Appears to be at his baseline currently. counseled regarding signs and symptoms for which I believe and urgent re-evaluation would be necessary. with good understanding of and agreement to plan and is comfortable going home at this time This document was made in part using voice recognition software. While efforts are made to proofread this document, sound alike and grammatical errors may occur. Departure - Departure Disposition: 01 Home, Self Care Clinical Impression: Dehydration Condition: Good Instructions: ED Dehydration Follow-Up: Delvis Salazar MD [Primary Care Provider] - Within 1 week Comments: There is no evidence of pneumonia on chest x-ray or urinary tract infection on urinalysis. He was dehydrated and was given IV fluids. Please follow-up with his doctor for further care. Discharge Date/Time: 10/10/21 18:51
--- NOTE | 2021-10-10 16:48 | XRAY Report ---
PROCEDURE: Chest 1 View X-Ray INDICATIONS: cough TECHNIQUE: One view of the chest was acquired. COMPARISON: CXR 04/24/2021. CT chest 01/26/2021. FINDINGS: Surgical changes and devices: Left pacemaker. Lungs and pleura: No pleural effusions or pneumothorax. Small calcified pleural plaque seen on prior CT are not well appreciated. Lungs appear clear. Mediastinum: Mediastinal contours appear unchanged. Heart size is at the upper limits of normal. Bones and chest wall: No suspicious bony lesions. Overlying soft tissues appear unremarkable. IMPRESSION: No acute cardiopulmonary abnormality. Reviewed by: Benedicto Mcnally MD on 10/10/2021 4:46 PM PST Approved by: Benedicto Mcnally MD on 10/10/2021 4:46 PM PST Station ID: [id number]
[2021-10-10 18:14] LABS: BILIRUBIN,URINE NEGATIVE (NEGATIVE); GLUCOSE, URINE (UA) NEGATIVE (NEGATIVE); KETONES,URINE (UA) NEGATIVE (NEGATIVE); LEUKOCYTE ESTERASE, URINE NEGATIVE (NEGATIVE); NITRITE,URINE NEGATIVE (NEGATIVE); OCCULT BLOOD,URINE NEGATIVE (NEGATIVE); PH,URINE 5.5 PH (5.0-7.5); PROTEIN,URINE NEGATIVE (NEGATIVE); UROBILINOGEN,URINE 0.2 (NORMAL) E.U./dL (NORMAL)
[2021-10-10 18:15] LABS: CLARITY,URINE CLEAR (CLEAR)
[2021-10-10 18:51] VITALS: BP 120/80
== END 2021-10-10 18:51 | disposition home or self-care (01) ==
LOC: ED 15:39
DX: E86.0 Dehydration (principal); N28.9 Disorder of kidney and ureter, unspecified; E87.0 Hyperosmolality and hypernatremia; D64.9 Anemia, unspecified; Z79.899 Other long term (current) drug therapy
CPT/HCPCS: 36415; 80053; 81001; 81003; 84443; 85025; 87086; 99283

== ENCOUNTER 2021-10-11 07:50 | Outpatient (CLI) | payer MEDICARE | END 2021-10-11 07:51 | disposition EMS.NT | LOC: EMS 07:50 | DX: R05.9 Cough, unspecified (principal); R06.00 Dyspnea, unspecified ==

== ENCOUNTER 2021-10-11 12:17 | Outpatient (CLI) | payer MEDICARE | END 2021-10-11 12:18 | disposition home or self-care (01) | LOC: LAB.S 12:17 | PROVIDERS: ATTEND Internal Medicine | DX: Z51.81 Encounter for therapeutic drug level monitoring (principal) | CPT/HCPCS: 36416; 85610 ==

== ENCOUNTER 2021-10-14 06:31 | Outpatient (CLI) | payer MEDICARE | END 2021-10-14 06:32 | disposition critical access hospital (66) | LOC: EMS 06:31 | DX: R06.02 Shortness of breath (principal) | CPT/HCPCS: A0425; A0429 ==

== ENCOUNTER 2021-10-14 06:40 | Emergency (ER) | payer MEDICARE ==
--- NOTE | 2021-10-14 07:59 | ED Physician Documentation ---
History of Present Illness - Stated complaint Stated Complaint: HYPOTENSION - Chief complaint Chief Complaint: General - History obtained from History obtained from: Patient, Family, EMS - History of Present Illness Timing: Today Pain level max: 0 Pain level now: 0 - Additonal information Additional information: 89-year-old male brought in by his today. She states that for the past several days if he is sleeping upright in his chair he seems to be doing fine and appears peaceful and restful. When he lies down flat at night with his CPAP he flails his arms and legs and occasionally will wake up in a panic. Tonight he woke up panicked, she removed the CPAP device and he was gasping for breath. Currently is asymptomatic. Recently had his torsemide decreased. No fevers. No chills. Patient has severe dementia. On palliative care. Review of Systems Unable to obtain: Dementia Constitutional: denies: Fever, Chills GI: denies: Vomiting, Diarrhea Musculoskeletal: denies: Neck pain, Back pain Neurologic: denies: Headache PD PAST MEDICAL HISTORY - Past Medical History Cardiovascular: Hypertension, High cholesterol, Atrial fibrillation Respiratory: None Neuro: None Endocrine/Autoimmune: None GI: Ulcers : None, Renal insuffiency HEENT: Glaucoma Psych: None Musculoskeletal: None Derm: None - Past Surgical History Past Surgical History: Yes General: Appendectomy Ortho: Other Cardiovascular: Pacemaker HEENT: Other - Present Medications Home Medications: Ambulatory Orders Medication Instructions Recorded Confirmed Atorvastatin Calcium [Lipitor] 80 mg PO QPM 02/06/17 10/14/21 Losartan [Cozaar] 12.5 mg PO ACHS 02/06/17 10/14/21 Acyclovir 400 mg ORAL BID 02/15/19 10/14/21 Torsemide 20 mg PO DAILY MDD 10 or 20 mg 02/15/19 10/14/21 evening Warfarin Sodium 2 mg DAILY MDD managed by 02/15/19 10/14/21 cardiology cycloSPORINE [Restasis] 1 drops EACHEYE BID 02/15/19 10/14/21 Dorzolamide 2% Ophth Drops 1 drops EACHEYE BID 05/18/19 10/14/21 [Trusopt 2% Ophth Drops] Cyanocobalamin (Vitamin B-12) 1,000 mg PO DAILY 07/14/19 10/14/21 [Vitamin B-12] Levothyroxine [Synthroid] 100 mcg PO DAILY MDD except 07/14/19 10/14/21 Febuxostat [Uloric] 40 mg PO DAILY 12/16/19 10/14/21 Metoprolol Succinate 100 mg PO BID 05/02/20 10/14/21 Aspirin 81 mg PO DAILY 07/21/20 10/14/21 Thiamine HCl [Vitamin B-1] 1 tab PO DAILY 09/20/21 10/14/21 guaiFENesin [Mucinex] 1 tab PO DAILY PRN 09/20/21 10/14/21 - Allergies Allergies/Adverse Reactions: Allergies Allergy/AdvReac Type Severity Reaction Status Date / Time ARCELIA Inhibitors Allergy Unknown Verified 10/10/21 15:50 amiodarone Allergy Unknown Verified 10/10/21 15:50 Calcium Channel Blocking Allergy Unknown Verified 10/10/21 15:50 Agent Dilt cephalexin Allergy Unknown Verified 10/10/21 15:50 simvastatin [From Zocor] Allergy Cramps Verified 10/10/21 15:50 Vcespho-LBR-MaV Reductase AdvReac Unknown Verified 10/10/21 15:50 Inhibitor [Nyzsgpj-Yvn-Qep Reductase Inhibitor] - Social History Does the pt smoke?: No Smoking Status: Never smoker Does the pt drink ETOH?: Yes Does the pt have substance abuse?: No - Immunizations Immunizations are current?: Yes - POLST Patient has POLST: Yes PD ED PE NORMAL - Vitals Vital signs reviewed: Yes - General General: No acute distress, Well developed/nourished, Other (alert) - HEENT HEENT: Atraumatic, PERRL, Moist mucous membranes - Cardiac Cardiac: RRR - Respiratory Respiratory: No respiratory distress, Clear bilaterally - Abdomen Abdomen: Soft, Non tender, Non distended - Derm Derm: Warm and dry - Extremities Extremities: No calf tenderness / cord, Other (trace edema B) - Neuro Neuro: Other (alert) Results - Vitals Vitals: Vital Signs - 24 hr 10/14/21 10/14/21 06:46 08:04 Temperature 36.3 C L Heart Rate 64 70 Respiratory 15 16 Rate Blood Pressure 106/82 H 127/73 O2 Saturation 100 100 Oxygen O2 Source Room air - EKG (time done) 0746 Rate: Rate (enter#) (59) Rhythm: Other (paced) - Labs Labs: Laboratory Tests 10/14/21 10/14/21 10/14/21 07:57 07:57 07:57 WBC 10.3 RBC 4.07 L Hgb 14.0 Hct 43.2 MCV 106.1 H MCH 34.4 H MCHC 32.4 RDW 14.6 Plt Count 152 MPV 11.0 Neut # (Auto) 6.6 Lymph # (Auto) 2.6 [place] # (Auto) 0.9 Eos # (Auto) 0.1 Baso # (Auto) 0.1 Absolute Nucleated RBC 0.00 Nucleated RBC % 0.0 PT 32.0 H INR 2.9 H Sodium 154 H Potassium 3.7 Chloride 116 H Carbon Dioxide 25 Anion Gap 13.0 BUN 79 H Creatinine 2.9 H Estimated GFR (MDRD) 21 L Glucose 111 H Calcium 9.1 Total Bilirubin 1.8 H AST 18 ALT 22 Alkaline Phosphatase 79 Troponin I High Sens B-Natriuretic Peptide Total Protein 6.3 L Albumin 3.9 Globulin 2.4 Albumin/Globulin Ratio 1.6 10/14/21 10/14/21 07:57 07:57 WBC RBC Hgb Hct MCV MCH MCHC RDW Plt Count MPV Neut # (Auto) Lymph # (Auto) [place] # (Auto) Eos # (Auto) Baso # (Auto) Absolute Nucleated RBC Nucleated RBC % PT INR Sodium Potassium Chloride Carbon Dioxide Anion Gap BUN Creatinine Estimated GFR (MDRD) Glucose Calcium Total Bilirubin AST ALT Alkaline Phosphatase Troponin I High Sens 47.3 H* B-Natriuretic Peptide 426 H Total Protein Albumin Globulin Albumin/Globulin Ratio PD MEDICAL DECISION MAKING - ED course Complexity details: considered differential, d/w family ED course: Patient is an 89-year-old gentleman with severe dementia accompanied by his today. He does have hypernatremia, this was present at the last visit as well. He did receive IV fluids at that time. His fluid intake has decreased, but his states that he had increasing fluid intake yesterday. Encouraged increase free water intake at home. His INR has decreased from greater than 8 down to 2.9. He can likely restart his warfarin tomorrow. We did discuss the risks and benefits of warfarin in this patient including his risk for a potential stroke versus risk of falling and bleeding from warfarin. They will discuss with his doctor if he should continue the warfarin or just aspirin alone. counseled regarding signs and symptoms for which I believe and urgent re- evaluation would be necessary. with good understanding of and agreement to plan and is comfortable going home at this time This document was made in part using voice recognition software. While efforts are made to proofread this document, sound alike and grammatical errors may occur. Departure - Departure Disposition: 01 Home, Self Care Clinical Impression: Hypernatremia Condition: Good Instructions: Hypernatremia Dc Follow-Up: Delvis Salazar MD [Primary Care Provider] - Tete Daniels ARNP [Provider Admit Priv/Credential] - Comments: Please follow-up with your doctor for further care. Your INR was 2.9 today. He can likely restart his warfarin tomorrow. You may want to discuss with his doctor whether continuing warfarin versus aspirin alone would be more beneficial for him. Especially with his increasing weakness and potential for falls. I would discuss with Tete Daniels a hospital bed for home as this will likely make sleeping easier for him. Please return if you worsen.
[2021-10-14 08:02] LABS: BASOPHILS # (AUTO) 0.1 10^3/uL (0.0-0.1); BASOPHILS % (AUTO) 0.5 %; EOSINOPHILS # (AUTO) 0.1 10^3/uL (0.0-0.7); EOSINOPHILS % (AUTO) 1.4 %; HCT - HEMATOCRIT 43.2 % (42.0-52.0); LYMPHOCYTES # (AUTO) 2.6 10^3/uL (1.5-3.5); MEAN CORPUSCULAR HEMOGLOBIN 34.4 pg (27.0-31.0); MEAN CORPUSCULAR HGB CONC 32.4 g/dL (32.0-36.0); MEAN CORPUSCULAR VOLUME 106.1 fL (80.0-94.0); MONOCYTES # (AUTO) 0.9 10^3/uL (0.0-1.0); MONOCYTES % (AUTO) 8.4 %; NEUTROPHILS # (AUTO) 6.6 10^3/uL (1.5-6.6); NEUTROPHILS % (AUTO) 64.3 %; PLT - PLATELET COUNT 152 10^3/uL (130-450); RED BLOOD COUNT 4.07 10^6/uL (4.70-6.10); RED CELL DISTRIBUTION WIDTH 14.6 % (12.0-15.0); WHITE BLOOD COUNT 10.3 x10^3/uL (4.8-10.8)
[2021-10-14 08:13] LABS: INR 2.9 (0.8-1.2)
[2021-10-14 08:19] LABS: ALBUMIN 3.9 g/dL (3.2-5.5); ALBUMIN/GLOBULIN RATIO 1.6 (1.0-2.2); BILIRUBIN,TOTAL 1.8 mg/dL (0.2-1.0); CALCIUM 9.1 mg/dL (8.5-10.3); CREATININE 2.9 mg/dL (0.6-1.2); POTASSIUM 3.7 mmol/L (3.5-5.0); TOTAL PROTEIN 6.3 g/dL (6.7-8.2)
[2021-10-14 08:47] VITALS: BP 107/69
== END 2021-10-14 09:02 | disposition home or self-care (01) ==
LOC: EDUNIT# → ED 06:40
DX: E87.0 Hyperosmolality and hypernatremia (principal); F03.90 Unspecified dementia, unspecified severity, without behavioral disturbance, psychotic disturbance, mood disturbance, and anxiety; G47.33 Obstructive sleep apnea (adult) (pediatric); I10 Essential (primary) hypertension; I48.91 Unspecified atrial fibrillation; Z79.01 Long term (current) use of anticoagulants
CPT/HCPCS: 36415; 80053; 83880; 84484; 85025; 85610; 93005; 99284

== ENCOUNTER 2021-10-25 13:00 | Outpatient (CLI) | payer MEDICARE ==
--- NOTE | 2021-10-25 20:57 | CONSULTATION NOTE ---
Palliative Care Follow Up - Referral Referring Provider: Dr. Delvis Daniels Time of Visit: 4705-4131 Referral setting: Home Referral Reason: Cough/CHF/hypotension/dementia/FTT - Information Sources Records reviewed: Previous records reviewed History/Review of Systems obtained from: Patient, Family ( Hugo provided most of information) Exam limitations: Clinical condition (patient only able to answer yes/no mostly; with overwhelm with patient declining situation) - History of Present Illness Update Brief HPI Update: This is a viola 89-year-old gentleman with multiple core morbidities, including history of tachybradycardia syndrome with permanent pacemaker, longstanding CHF, CKD stage IV, but has had fairly significant decline over the last several weeks and more acutely over the last several days. Patient has underlying dementia, has been having seizure-like activity, increased trouble with dysphagia, and recent trip to ED related to this and dehydration. Concern has been for patient's risk of aspiration, today he presents with moist cough, difficulty clearing his secretions. His lungs are fairly clear he has a few crackles in his left lower lobe. His cough though is rolling and moist unable to clear secretions. They had just had lunch, he has been pocketing and drooling, has been doing better since he has been tucking his chin to eat, but still needs to follow-up with speech therapy. Patient is without fever or chills, does appear somewhat distant and vacated stare, though is able to answer to me yes or no questions. He does report he does not feel well, and does have some chest pain with coughing. Patient does have history of atrial fib, is on Coumadin, recently presented with a greater than 8, most recently yesterday is 1.7. Patient's has had multiple questions regarding continuation of Coumadin given patient's fall risk. He has had 1 fall in the last couple weeks with some bruising and had hit his head and arm. Patient presents with weight loss, today he is about 171, his baseline weight has been 1 95-200 he has had about a 30 pound weight loss over the last 6 weeks. This is been related to less intake, as well as patient has not been independently eating. He tends to get up and do his own breakfast, and now is needing to plate his food and cut things up. Patient does not present with any lower extremity edema, in fact presents with hypotension of 102/56 and 88/52 with a pulse of 60. His O2 sats are 99%. Patient is ambulatory most of the time. Things have been much improved with the hospital bed he is sleeping better, does wear CPAP at bedtime. He is up only 1 time at night to void. So far he is able to ambulate and toilet himself, feels at the point this transitions, will need more help in home. Palliative care here to talk about goals of care, and coordinate for quality of life issues, I did revisit the POLST today with DN AR and focus on comfort measures. does recognize patient's failure to thrive, frailty and would like to keep him at home through end-of-life. Past Medical History: Combined systolic/diastolic CHF, hypertension, high cholesterol, atrial fib on Coumadin, sleep apnea with CPAP, CKD stage IV, chronic vision loss, glaucoma, macular degeneration, osteoarthritis, rosacea, history of gout Social History - Living Situation Living arrangement: At home Living Situation: With spouse/s.o. Support System: Patient lives at home with his viola Anneliese. She is his primary caregiver but is struggling as a caregiver because of recent back injury. 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 He and Anneliese been 41 years have a blended family, his family has been not involved. She does feel supported by her son who lives in [place]. He is no longer able to go shopping with her, so has left him with her son while she goes shopping this last couple times.She has met with case management social worker, is looking at hiring some help eventually, she does see that things are getting more complicated, [facility] and [facility]. Medications/Allergies - Medications Home Medications: Ambulatory Orders Medication Instructions Recorded Confirmed Atorvastatin Calcium [Lipitor] 80 mg PO QPM 02/06/17 10/25/21 Losartan [Cozaar] 12.5 mg PO ACHS 02/06/17 10/25/21 Acyclovir 400 mg ORAL BID 02/15/19 10/25/21 Torsemide 20 mg PO DAILY MDD 10 mg evening 02/15/19 10/25/21 Warfarin Sodium 2 mg DAILY MDD managed by 02/15/19 10/25/21 cardiology cycloSPORINE [Restasis] 1 drops EACHEYE BID 02/15/19 10/25/21 Dorzolamide 2% Ophth Drops 1 drops EACHEYE BID 05/18/19 10/25/21 [Trusopt 2% Ophth Drops] Cyanocobalamin (Vitamin B-12) 1,000 mg PO DAILY 07/14/19 10/25/21 [Vitamin B-12] Levothyroxine [Synthroid] 100 mcg PO DAILY MDD except 07/14/19 10/25/21 Metoprolol Succinate 100 mg PO BID 05/02/20 10/25/21 Aspirin 81 mg PO DAILY 07/21/20 10/25/21 guaiFENesin [Mucinex] 1 tab PO BID 09/20/21 10/25/21 LORazepam [Ativan] 0.25 - 0.5 mg SL Q4HR PRN 10/25/21 10/25/21 - Allergies Allergies/Adverse Reactions: Allergies Allergy/AdvReac Type Severity Reaction Status Date / Time ARCELIA Inhibitors Allergy Unknown Verified 10/10/21 15:50 amiodarone Allergy Unknown Verified 10/10/21 15:50 Calcium Channel Blocking Allergy Unknown Verified 10/10/21 15:50 Agent Dilt cephalexin Allergy Unknown Verified 10/10/21 15:50 simvastatin [From Zocor] Allergy Cramps Verified 10/10/21 15:50 Uevanub-YMY-HoX Reductase AdvReac Unknown Verified 10/10/21 15:50 Inhibitor [Sgbsffh-Kqv-Efv Reductase Inhibitor] Review of Systems - Constitutional Constitutional: reports: Fatigue (worsening), Weakness, Weight loss (171; had been as low as 161 when doing poorly with seizures a couple of weeks ago) - Eyes Eyes: reports: Blurred vision, Vision loss, Corrective lenses - Ears, Nose & Throat Ears, Nose & Throat: reports: Hearing loss, Hearing aids, Dry mouth - Cardiovascular Cardiovascular: reports: Lightheadedness, Exertional dyspnea, Decr. exercise tolerance - Respiratory Respiratory: reports: Cough (moist rolling cough; worsening over last two days; more notable since lulnch), SOB with exertion, Other (c/o chest pain with coughing). denies: SOB at rest - Gastrointestinal Gastrointestinal: reports: Early satiety, Good appetite. denies: Constipation - Genitourinary Genitourinary: reports: Frequency, Incontinence - Musculoskeletal Musculoskeletal: reports: Stiffness, Limited range of motion, Muscle weakness - Integumentary Integumentary: reports: Dryness - Neurological Neurological: reports: General weakness, Memory problems (barely verbal; vacant look) - Psychiatric Psychiatric: reports: Other. denies: Anxiety - Endocrine Endocrine: reports: Hypothyroidism - All Other Systems All Other Systems: reports: Other (limited ROS with memory issues) Physical Exam - Vital Signs Temperature: 97.2 C Pulse Rate: 60 Respiratory Rate: 16 (20 with effort) O2 Saturation: 99 Blood Pressure: 102/56 (88/52) - Physical Exam General Appearance: positive: No acute distress, Alert ENT: positive: No signs of dehydration Neck: positive: Trachea midline Cardiovascular: positive: Irregularly irregular Respiratory: positive: Diminished in bases, Rales (crackles LLL), Other (moist cough; anteriorly rhonchi;clear somewhat with cough effort). negative: No respiratory distress Abdomen: positive: Non-tender, Soft, Other (rounded) Skin: positive: Pallor, Dryness, Bruising Extremities: positive: No pedal edema Neurologic/Psychiatric: positive: Mood/affect nml, Disoriented to time, Weakness, Slurred/abnml speech, Flat affect Palliative Care - POLST Patient has POLST: Yes POLST Status: DNR, Comfort Measures (updated at todays visit) Pain: Location (chest with coughing) Feelings of wellbeing/Perceived Quality of Life: Poor, Worsening Sleep: Sleep improved, Other (uses cpap) Constipation: No Performance Status: Patient with fluctuating activity status. Is able to ambulate independently, though concerned about patient's gait stability. They do have a walker, patient is willing to use when he is not feeling well. He can get from sit to stand, gait is quite shuffled. Reports hospital bed is helping with transfers and nighttime management, has [facility], encouraged to continue at least for fall recovery and some strengthening. - Palliative Care Discussion: Patient with severe dementia, and difficulty expressing himself, though he is able to tell me he is not feeling well. He does look fairly miserable, when asked what is worried about he kind of shrugs his shoulders. reports that he was really good on Thanksgiving, but has been deteriorating since then. She has been pushing fluids. We did discuss how things were going currently, is challenged because of her back pain. Patient does need 24/7 supervision though he does get up in the morning and fix his own breakfast. She feels like she can manage him as long as he can toilet himself and is mobile. She would like to keep him at home for end-of-life but is wondering if this is realistic in the context of his care needs. She does not really want to place him if possible. They do have resources to be able to hire the question as if they will be able to find the resources at the time. She would like to transition to hospice when appropriate, suspect we are getting within that range fairly quickly. We did update the POLST with DNR/DNI with moved from selective treatments to comfort focused care. She does recognize that hospitalization would not be in his benefit nor would like to continue to go to the ED. She has been managing things fairly well at home on her own. We discussed currently more of a focused based approach, will get a chest x-ray to treat pneumonia/heart failure if needed but will not go to ED today. Results - Lab Results Lab results reviewed: Yes Impression and Recommendations - Palliative Care Impression: This is a viola 89-year-old gentleman with multiple comorbidities, presenting with continued cognitive decline attributed his vascular dementia as well as his ongoing functional decline. Patient has continue to be challenged to manage the sequela of his hypotension, weight loss, intermittent seizures, worsening dementia, now presents with dysphagia and high risk for aspiration. Patient is continue to be managed at home though this is becoming somewhat overwhelming for , even with the initiation of home health. Palliative care providing support regarding coordination of care, symptom management, and anticipatory guidance until transitions to hospice Recommendations/Counseling Done: 1. Moist cough. Patient has been having trouble with Dysphagia, is due to have evaluation from speech therapy. Is doing better when he tucks his chin, but has had more moist cough over the last couple days. We will go ahead and get chest x-ray to rule out aspiration pneumonia, patient also high risk for exacerbation of CHF. 2. Hypotension. Patient does present with orthostatic hypotension, weakness, does look like he is feeling poorly. She has done well with getting fluids around 40 ounces daily, suspect with patient's weight loss needs medications adjusted. Call into his recreational therapy aide given patient's frailty and multiple cardiac meds. 3. Dementia. Patient does appear somewhat vacant, has not had any recent seizures but certainly appears to have ongoing cognitive decline. At this point in time he is still following commands and participating some in conversation. We will continue to monitor. 4. Atrial fib. Patient at high risk for sequela from falls, has longstanding atrial fib. Has had some irregular protimes and having more difficulty with management. Will follow up given benefits versus risks to continue warfarin. Discussed with is not it if it so when to discontinue. Will address first with cardiology, and follow-up with Dr. Mckeon if needed. 5. Advanced care planning. Goal is to keep patient at home as long as possible given his ongoing decline. They are currently supported by [facility], this is been somewhat overwhelming for to manage all the appointments and phone calls. Discussion with again regarding goals of care, she would like comfort focused care, POLST redone with DN AR/DNI and comfort focused treatments. Goal is to avoid hospitalization. She does have number for lift assist. She also has lorazepam if patient has recurrent or difficult seizures. 60 minutes with greater than 50% of this done in anticipatory guidance, advanced care planning, complete a POLST, coordination of care, call into cardiology for medication adjustments consult.
== END 2021-10-25 13:01 | disposition home or self-care (01) ==
LOC: PC 13:00
PROVIDERS: ATTEND Nurse Practitioner Adult Health
DX: Z51.5 Encounter for palliative care (principal); R05.9 Cough, unspecified; I50.9 Heart failure, unspecified; I95.1 Orthostatic hypotension; F03.90 Unspecified dementia, unspecified severity, without behavioral disturbance, psychotic disturbance, mood disturbance, and anxiety; R62.7 Adult failure to thrive; N18.4 Chronic kidney disease, stage 4 (severe); F01.50 Vascular dementia, unspecified severity, without behavioral disturbance, psychotic disturbance, mood disturbance, and anxiety; R13.10 Dysphagia, unspecified; R56.9 Unspecified convulsions; I48.91 Unspecified atrial fibrillation; R63.4 Abnormal weight loss; E03.9 Hypothyroidism, unspecified; R53.83 Other fatigue; R53.1 Weakness; H53.8 Other visual disturbances; H91.90 Unspecified hearing loss, unspecified ear; H54.7 Unspecified visual loss; Z66 Do not resuscitate; Z95.0 Presence of cardiac pacemaker; Z79.01 Long term (current) use of anticoagulants; Z79.82 Long term (current) use of aspirin; Z79.899 Other long term (current) drug therapy; Z91.81 History of falling
CPT/HCPCS: 99350

== ENCOUNTER 2021-10-25 14:50 | Outpatient (CLI) | payer MEDICARE ==
--- NOTE | 2021-10-25 15:25 | XRAY Report ---
PROCEDURE: Chest 2 View X-Ray INDICATIONS: MOIST COUGH,ASPIRATION RISK TECHNIQUE: 2 view(s) of the chest. COMPARISON: None. FINDINGS: Surgical changes and devices: Pacemaker. Lungs and pleura: There is trace blunting of the left costophrenic angle, unchanged. Mediastinum: Mediastinal contours are normal. Heart size is enlarged. Bones and chest wall: No suspicious bony abnormalities. Soft tissues appear unremarkable. IMPRESSION: Trace costophrenic angle blunting likely related to scarring. Reviewed by: Eliz Carson MD on 10/25/2021 3:24 PM PST Approved by: Eliz Carson MD on 10/25/2021 3:24 PM PST Station ID: [id number]
== END 2021-10-25 14:51 | disposition home or self-care (01) ==
LOC: DI 14:50
PROVIDERS: ATTEND Nurse Practitioner Adult Health
DX: R05.9 Cough, unspecified (principal)

== ENCOUNTER 2021-11-07 15:00 | Outpatient (CLI) | payer MEDICARE ==
--- NOTE | 2021-11-07 16:51 | CONSULTATION NOTE ---
Palliative Care Follow Up - Referral Referring Provider: Dr. Delvis Daniels Time of Visit: [id number] Referral setting: Home Referral Reason: Seizures/Dementa/CHF/CKD IV/Goals of Care - Information Sources Records reviewed: Previous records reviewed History/Review of Systems obtained from: Patient, Family ( Hugo; Two sons from [place] present for family conference) Exam limitations: Clinical condition (patient with few words; more alert today; unable to follow conversation; few answers when asked direct quesitons yes/no) - History of Present Illness Update Brief HPI Update: This is a viola 89-year-old gentleman with multiple co-morbidities, including history of tachybradycardia syndrome with permanent pacemaker, longstanding CHF, CKD stage IV, but has had fairly significant decline over the last several weeks and more acutely over the last several days. Patient has underlying dementia, has been having seizure-like activity, increased trouble with dysphagia, and recent trip to ED mid September related to this and dehydration. Patient has had another 2 prolonged episodes of seizure-like activity, where he was unable to get out of the chair, and had felt like he did not "feel good". This is both on 11 02 and again on 11/04. Is not had any further this week. We have been reviewing goals of care, in the context of given these are fairly unpredictable, he has been trialed on gabapentin which he did poorly on with altered mental status, and lethargy and are poor prognostic indicators of his current status. Patient is on Coumadin for his atrial fib which was problematic in past, there has been multiple questions regarding weighing benefits and burdens of continuing on, he did get a pro time on Friday it was 1.9. She is actually quite ready to transition him off the Coumadin, will though await conversation with hospice bacteriologist medical. There have been multiple duelling providers in patient recent history of what is best to do. It is suspected that patient has had TIAs in the past as well. Patient continues to present with weight loss, today is 169, his baseline weight was 195-200, this is over about 6 weeks. Patient has had decreased intake, this has some bearing and the fact that he had developed dysphagia, this fluctuates depending on his level of awareness. He had been working with [employer] speech, with training on aspiration precautions, they did trial some Thick-It, which did not go over very well. Patient does not present with any lower extremity edema, his lungs are clear today, he is not hypoxic, nor denies any symptoms. We had decreased his torsemide to just a.m. dosing. He still remains somewhat hypotensive of 104/62, with a pulse of 108. Patient's functional status has fluctuated as well, when he is having his episodes are recovering from them he is quite weak, is quite clear when he no longer can toilet she herself has injured her back, he will need some kind of placement or 24-hour care. She does note limitations that are out there, she has met with Lor ARIAS from palliative care team. Has been exploring [facility], is planning to "get on the list". She has been able to manage him better this week as far as getting in and out of bed with a hospital bed, but it was from the [place] and is not in good shape. We did discuss hospice would be able to provide most likely better bed that he may like. So far he is ambulatory with some cueing, he was up at 0300 this a.m. for a bowl of cereal, this has been his pattern in the past. Palliative care here to talk about goals of care as being admitted to hospice tomorrow, sons are here to participate in conversation and are supportive of the transition. Past Medical History: Combined systolic/diastolic CHF congestive heart failure, hypertension, high cholesterol, atrial fib on Coumadin, sleep apnea with CPAP use, CKD stage IV, chronic vision loss, glaucoma, macular degeneration, osteoarthritis, rosacea, history of gout Social History - Living Situation Living arrangement: At home Living Situation: With spouse/s.o. Support System: Patient lives at home with his viola Anneliese. He is well cared for, she is his primary caregiver unfortunately has recently hurt her back. 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 He and Anneliese been for 41 years and have a blended support family. She has a son up in [place], has been quite supportive, there are 2 sons here for the family conference today. Patient always lip to read, but then had macular degeneration, and as his dementia progressed having more difficulty with this. He always dresses like a "professor". They have been well involved in their catholic, unfortunately with Covid and with his decline, have not been able to participate as much. Would benefit from support from the [employer]. Medications/Allergies - Medications Home Medications: Ambulatory Orders Medication Instructions Recorded Confirmed Atorvastatin Calcium [Lipitor] 80 mg PO QPM 02/06/17 11/07/21 Acyclovir 400 mg ORAL BID 02/15/19 11/07/21 Torsemide 20 mg PO DAILY 02/15/19 11/07/21 Warfarin Sodium 2 mg DAILY MDD considering 02/15/19 11/07/21 discontinuing cycloSPORINE [Restasis] 1 drops EACHEYE BID 02/15/19 11/07/21 Dorzolamide 2% Ophth Drops 1 drops EACHEYE BID 05/18/19 10/25/21 [Trusopt 2% Ophth Drops] Cyanocobalamin (Vitamin B-12) 1,000 mg PO DAILY 07/14/19 11/07/21 [Vitamin B-12] Levothyroxine [Synthroid] 100 mcg PO DAILY MDD except 07/14/19 11/07/21 Metoprolol Succinate 100 mg PO BID 05/02/20 11/07/21 Aspirin 81 mg PO DAILY 07/21/20 11/07/21 guaiFENesin [Mucinex] 1 tab PO BID 09/20/21 11/07/21 LORazepam [Ativan] 0.25 - 0.5 mg SL Q4HR PRN 10/25/21 11/07/21 - Allergies Allergies/Adverse Reactions: Allergies Allergy/AdvReac Type Severity Reaction Status Date / Time ARCELIA Inhibitors Allergy Unknown Verified 10/10/21 15:50 amiodarone Allergy Unknown Verified 10/10/21 15:50 Calcium Channel Blocking Allergy Unknown Verified 10/10/21 15:50 Agent Dilt cephalexin Allergy Unknown Verified 10/10/21 15:50 simvastatin [From Zocor] Allergy Cramps Verified 10/10/21 15:50 Zvqsemc-CLX-VaU Reductase AdvReac Unknown Verified 10/10/21 15:50 Inhibitor [Eayzvtz-Fbs-Dha Reductase Inhibitor] Review of Systems - Constitutional Constitutional: reports: Fatigue, Weight loss (169) - Eyes Eyes: reports: Blurred vision, Vision loss, Corrective lenses - Ears, Nose & Throat Ears, Nose & Throat: reports: Hearing loss, Hearing aids - Cardiovascular Cardiovascular: reports: Edema (trace), Exertional dyspnea, Decr. exercise tolerance - Respiratory Respiratory: reports: Cough (moist rolling cough fluctuates depending on alertness/dysphagia; good today), SOB with exertion. denies: SOB at rest - Gastrointestinal Gastrointestinal: reports: Good appetite. denies: Constipation - Genitourinary Genitourinary: reports: Frequency, Incontinence (intermittent) - Musculoskeletal Musculoskeletal: reports: Stiffness, Limited range of motion, Muscle weakness - Integumentary Integumentary: reports: Dryness - Neurological Neurological: reports: General weakness, Memory problems (barely verbal; vacant look fluctuates; engaged today though unable to follow conversation told a few jokes answers in response to questions) - Psychiatric Psychiatric: denies: Anxiety - Endocrine Endocrine: reports: Hypothyroidism - All Other Systems All Other Systems: reports: Other (limited ROS with memory issues) Physical Exam - Vital Signs Temperature: 97.3 C Pulse Rate: 104 Respiratory Rate: 18 O2 Saturation: 94 Blood Pressure: 104/62 - Physical Exam General Appearance: positive: No acute distress, Alert Eyes Bilateral: negative: Conjunctivae nml ENT: positive: No signs of dehydration Neck: positive: Trachea midline Cardiovascular: positive: Regular rate & rhythm Respiratory: positive: No respiratory distress, Breath sounds nml, Diminished in bases Abdomen: positive: Non-tender, Soft, Nml bowel sounds Skin: positive: Dryness Extremities: positive: Pedal edema (trace) Neurologic/Psychiatric: positive: Mood/affect nml, Disoriented to time, Weakness, Flat affect Palliative Care - POLST Patient has POLST: Yes POLST Status: DNR, Comfort Measures (completed last visit) Pain: No pain Feelings of wellbeing/Perceived Quality of Life: Fair, Worsening Sleep: Sleep improved Constipation: No Performance Status: Patient has been stable on his feet today, this does fluctuate fairly widely. Depending on his seizure activity, alertness, and fatigue level. He was up in the middle the night walking around, has not had any recent falls. They are using hospital bed. He does need assistance with bathing, she would welcome some support in this. He can feed himself but needs supervision so he does not choke or take too big of bites, and to cue him for his chin down. - Palliative Care Discussion: Family conference with Hugo his , and 2 sons from [place]. We are aware goal is for transition to hospice tomorrow, we reviewed hospice services, support that can be provided, and also what is not provided as far as 24-hour care and reimbursement for placement. Anneliese is feeling quite relieved that there will be just 1 person i.e. the bacteriologist medical overseeing patient's care, has been difficult with multiple specialists that they have actually decided to continue to see up to this point, but she is ready to let this go. Her threshold is if he can no longer get up or walk or move himself or toilet that she does not feel like she could manage him, she would like to have him have a at home but is aware of the limited resources that are available for 24/ care though they have financial resources to support this. Patient is present, is having somewhat difficulty following the conversation, we discussed that he would have a team that would be providing him support and cannot to help them as he is having periods of not feeling good, he does not have any insight to the seriousness of his illness or his decline. This would be true for the last 3 years I have seen him on and off. I have some suspicion he is actually in the past been probably on the spectrum of Asperger's. This is based given on some of his descriptions of his behavior and how he has coped over the years. Patient does have POLST in place with DN AR/DNI and comfort measures. The goals are to avoid hospitalization and to have a smooth transition with minimal suffering. She does understand that at some point the seizures make it worse or lead to an end-of-life event. She does very good if she has someone to call and support.After introduction of hospice, patient's current status, signs are quite supportive of this transition and are relieved Tisha will have more support. Impression and Recommendations - Palliative Care Impression: This is a viola 89-year-old gentleman with multiple comorbidities, presenting with continued cognitive decline attributed his vascular dementia, intermittent seizures and fluctuating mental status, patient does have known CKD stage IV, and challenging medication management for his underlying CHF. Patient is transitioning to hospice in the context of his decline, and goals of care. Palliative care will handoff to transition for hospice, completed family conference today for support Recommendations/Counseling Done: 1. Hypotension. Patient continues with low blood pressures, but does seem to be able to tolerate them fairly well today, 104/62. He has had his medications adjusted, torsemide's been decreased to 20 mg 1 time a day, and losartan was stopped. Patient without any signs or symptoms of fluid overload at this point, lungs are clear, trace edema only. We will continue to monitor. 2. Dementia. Patient continues with fluctuating cognitive status, though has been deteriorating fairly acutely over the last several weeks to months. He is needing more cueing, assistance with dressing, he is still ambulatory other than when he is recovering from seizures. He does have intermittent incontinence, is able to participate in some yes/no questions but these are very delayed though today he is much more engaged with his sons here. He does have difficulty with word finding, and unable to formulate sentences that are accurate. At this point in time his behaviors are manageable, continues to accommodate these changes and provide him support. 3. Generalized weakness. Patient did receive some home health physical therapy, he is ambulatory, does have a walker available if needed. Patient does wander at times during the night, has not had any recent falls. 4. Dysphagia. This fluctuates depending on patient's mental status and worsens if patient has residual from seizure. At this point in time has had training for aspirations precautions, does have Thick-It but does not like it. She does watch him carefully. If he is having trouble with choking, recommended water only less chance of creating aspiration pneumonia. Patient does like juices and coffee. She is cutting up his food, and cueing him to tuck if problematic. Suspect still is silently aspirating, as he does have frequent cough that is more upper respiratory/airway. 5. Atrial fib. She has continued the Coumadin, his has been weighing benefits of burdens of this along. He did have a pro time drawn on Friday it was 1.9. She does feel like she is very transition off of the Coumadin, will be helpful to have just 1 medical provider providing support and instruction. She is awaiting Dr. Caceres recommendation. She does understand he will oversee his care, most medications will continue in the context of heart failure and comfort. 6. Advanced care planning. has come to terms that would best be supported by hospice. Goals are in alignment with comfort focused goals, does not want return to the ED or have any other acute interventions. She does understand he is going to continue to deteriorate, both functionally and mentally. We will need some long-term planning as far as when he is no longer ambulatory are continent, as this is the threshold for her being able to manage him long-term at home.Counseling provided to and sons regarding transition to hospice, g oals of care, all are in agreement comfort focused goals are best given patient's deterioration and continued deteriorating quality of life 45 minutes with greater than 50% of this done in counseling regarding goals of care, hospice transition, symptom management, and coordination with hospice team
== END 2021-11-07 15:01 | disposition home or self-care (01) ==
LOC: PC 15:00
PROVIDERS: ATTEND Nurse Practitioner Adult Health
DX: Z51.5 Encounter for palliative care (principal); I95.9 Hypotension, unspecified; F03.90 Unspecified dementia, unspecified severity, without behavioral disturbance, psychotic disturbance, mood disturbance, and anxiety; R53.1 Weakness; R13.10 Dysphagia, unspecified; I48.91 Unspecified atrial fibrillation; Z79.01 Long term (current) use of anticoagulants; Z66 Do not resuscitate
CPT/HCPCS: 99349

== ENCOUNTER 2021-12-30 18:53 | Outpatient (CLI) | payer MEDICARE | END 2021-12-30 18:54 | disposition EMS.NT | LOC: EMS 18:53 | DX: Z03.89 Encounter for observation for other suspected diseases and conditions ruled out (principal) ==